=== PATIENT | male | born 1965 | race African-American/Black ===

== ENCOUNTER 2021-07-02 04:36 | Inpatient (IN) ==
[2021-07-02] MEDS ORDERED: ONDANSETRON 4 MG/2 ML VIAL IV STA (05:07)
[2021-07-02] MEDS ORDERED: PANTOPRAZOLE 40 MG VIAL IV STA (05:07)
[2021-07-02] MEDS ORDERED: methylPREDNISolone SOD SUC 125 MG/2 ML VIAL IV STA (05:07)
[2021-07-02] MEDS ORDERED: ALBUTEROL/IPRATROPIUM 3 ML NEB RESP TX STA (05:07)
[2021-07-02] MEDS ORDERED: MORPHINE 4 MG/1 ML VIAL ONE (05:16)
[2021-07-02 05:28] LABS: Basophils # 0.1 10*3/uL (0.0-0.2); Basophils % 0.5 % (0.0-0.8); Eosinophils # 0.2 10*3/uL (0.0-0.87); Hemoglobin 10.1 GM/DL (14.0-18.0); Immature Granulocytes % 2.4 %; Immature Granulocytes Absolute 0.26 #; Lymphocytes # 1.8 10*3/uL (1.4-4.0); Lymphocytes % 16.9 % (21.2-54.2); Mean Corpuscular HGB Conc 27.4 GM/DL (32-36); Mean Corpuscular Volume 71.5 FL (87-102); Monocytes # 0.9 10*3/uL (0.11-0.8); Monocytes % 8.2 % (1.7-12.7); NRBC # 0.07 10*3/uL; Platelet Count 264 T/CUMM (130-400); Red Blood Count 5.15 MC/CUMM (3.8-5.5); White Blood Count 10.8 T/CUMM (4-12)
[2021-07-02] MEDS ORDERED: MORPHINE 4 MG/1 ML VIAL IV STA (05:31)
[2021-07-02 05:35] LABS: Hematocrit 36.8 VOL% (42.0-52.0)
[2021-07-02 05:37] LABS: Alanine Aminotransferase 38 U/L (16-61); Alkaline Phosphatase 140 U/L (45-117); Amylase 50 U/L (25-115); Aspartate Amino Transferase 16 U/L (0-37); Bilirubin,Total < 0.39 MG/DL (0.20-1.00); Blood Urea Nitrogen 25 MG/DL (7-18); Calcium 8.6 MG/DL (8.5-10.1); Glucose 168 MG/DL (74-106); Total Protein 8.7 G/DL (6.4-8.2)
[2021-07-02 05:39] LABS: Chloride 104 MMOL/L (98-107); Osmolality,Calculated 275.2 MOS/KG (273-304); Potassium 4.3 MMOL/L (3.5-5.1); Sodium 134 MMOL/L (136-145)
[2021-07-02 05:42] LABS: Carbon Dioxide 29 MMOL/L (21-32)
[2021-07-02 05:45] LABS: Estimated Glom Filtration Rate 0 ML/MIN
[2021-07-02] MEDS ORDERED: cefTRIAXone 1,000 MG in SODIUM CHLORIDE 0.9% 100 ML IV STA (05:54)
[2021-07-02 06:04] LABS: Platelet Estimate Adequate; Stomatocytes 1+; Target Cells 1+
[2021-07-02 07:54] LABS: Mucus,Urine Occasional /LPF (Occasional); RBC,Urine 5 /HPF (0-4); Squamous Epithelial Cell,Urine Occasional /HPF (0-10)
[2021-07-02 07:59] LABS: Bilirubin,Urine Negative (Negative); Blood, Urine Small mg/dL (Negative); Glucose,Urine (UA) Negative (Negative); Ketones,Urine Negative (Negative); Nitrite,Urine Negative (Negative); Protein,Urine 100 MG/DL; Urine Appearance Clear (Clear); Urine Color Yellow (Yellow); Urine Specific Gravity >= 1.030 (1.001-1.035); Urine Urobilinogen 0.2 EU/DL (<2.0); Urine pH 5.5 (4.5-8.0)
[2021-07-02] MEDS ORDERED: HYDROmorphone 2 MG/1 ML VIAL ONE (09:41)
[2021-07-02] MEDS ORDERED: AMMONIA INHALANT 1 EACH AMP INH ONE (09:42)
[2021-07-02] MEDS ORDERED: GLUCAGON 1 MG VIAL IM PRN (11:06)
[2021-07-02] MEDS ORDERED: DEXTROSE 10% 250 ML BAG IV PRN (11:06)
[2021-07-02 11:17] LABS: Arterial Base Excess iSTAT -4 MMOL/L (-2.5-2.5); Arterial Bicarbonate iSTAT 28.3 MMOL/L (20-26); Arterial O2 Saturation iSTAT 83 % (95-100); Arterial PCO2 iSTAT 94 MM HG (35-48); Arterial PO2 iSTAT 68 MM HG (80-95); Arterial Total CO2 iSTAT 31 MMO/L (23-27); Arterial pH iSTAT 7.085 (7.35-7.45)
[2021-07-02] MEDS: ENOXAPARIN 40 MG/0.4 ML SYRINGE SUBCUT SCH (12:00)
[2021-07-02] MEDS: MEROPENEM 500 MG in SODIUM CHLORIDE 0.9% 100 ML IV SCH ×3 (12:10→23:30)
[2021-07-02] MEDS: SODIUM CHLORIDE 0.9% 1,000 ML IV SCH ×2 (12:10→22:46)
[2021-07-02] MEDS: INSULIN LISPRO 100 UNIT/ML SUBCUT SCH ×3 (12:16→23:54)
[2021-07-02 13:24] LABS: Arterial Base Excess iSTAT -4 MMOL/L (-2.5-2.5); Arterial Bicarbonate iSTAT 28.3 MMOL/L (20-26); Arterial O2 Saturation iSTAT 99 % (95-100); Arterial PCO2 iSTAT 94 MM HG (35-48); Arterial PO2 iSTAT 188 MM HG (80-95); Arterial Total CO2 iSTAT 31 MMO/L (23-27); Arterial pH iSTAT 7.087 (7.35-7.45)
[2021-07-02] MEDS ORDERED: ETOMIDATE 20 MG/10 ML VIAL IV ONE ×2 (14:28→14:37)
[2021-07-02] MEDS ORDERED: SUCCINYLCHOLINE 200 MG/10 ML VIAL ONE (14:30)
[2021-07-02] MEDS ORDERED: SUCCINYLCHOLINE 200 MG/10 ML VIAL IV ONE (14:39)
[2021-07-02] MEDS ORDERED: METOPROLOL TARTRATE 5 MG/5 ML VIAL IV ONE (14:54)
[2021-07-02 17:08] LABS: Arterial Base Excess iSTAT -2 MMOL/L (-2.5-2.5); Arterial Bicarbonate iSTAT 24.3 MMOL/L (20-26); Arterial O2 Saturation iSTAT 100 % (95-100); Arterial PCO2 iSTAT 47 MM HG (35-48); Arterial PO2 iSTAT 209 MM HG (80-95); Arterial Total CO2 iSTAT 26 MMO/L (23-27)
[2021-07-03] MEDS: SODIUM CHLORIDE 0.9% 1,000 ML IV SCH ×4 (00:30→19:26)
[2021-07-03 04:23] LABS: Arterial Base Excess iSTAT -2 MMOL/L (-2.5-2.5); Arterial Bicarbonate iSTAT 22.2 MMOL/L (20-26); Arterial O2 Saturation iSTAT 96 % (95-100); Arterial PCO2 iSTAT 36 MM HG (35-48); Arterial PO2 iSTAT 82 MM HG (80-95); Arterial Total CO2 iSTAT 23 MMO/L (23-27); Arterial pH iSTAT 7.405 (7.35-7.45)
[2021-07-03] MEDS: MEROPENEM 500 MG in SODIUM CHLORIDE 0.9% 100 ML IV SCH ×3 (05:30→21:30)
[2021-07-03] MEDS: INSULIN LISPRO 100 UNIT/ML SUBCUT SCH ×4 (05:47→23:44)
[2021-07-03 06:17] LABS: Basophils % 0.1 % (0.0-0.8); Eosinophils % 0.1 % (0.00-10.9); Hemoglobin 8.5 GM/DL (14.0-18.0); Immature Granulocytes % 0.7 %; Lymphocytes # 0.9 10*3/uL (1.4-4.0); Lymphocytes % 6.1 % (21.2-54.2); Mean Corpuscular HGB Conc 29.3 GM/DL (32-36); Mean Corpuscular Volume 68.9 FL (87-102); Monocytes # 0.9 10*3/uL (0.11-0.8); Monocytes % 6.6 % (1.7-12.7); NRBC # 0.06 10*3/uL; Neutrophils % 86.4 % (38.7-73.9); Platelet Count 190 T/CUMM (130-400); Red Blood Count 4.21 MC/CUMM (3.8-5.5); White Blood Count 14.2 T/CUMM (4-12)
[2021-07-03 06:32] LABS: % Iron Saturation 3.5 % (18-50); Albumin 2.1 G/DL (3.4-5.0); Bilirubin,Total 0.5 MG/DL (0.20-1.00); Calcium 8.2 MG/DL (8.5-10.1); Ferritin 18.5 ng/mL (26-388); Osmolality,Calculated 282.7 MOS/KG (273-304); Potassium 3.9 MMOL/L (3.5-5.1)
[2021-07-03 06:42] LABS: Anisocytosis 2+; Band Neutrophils 13 % (0-10); Eosinophils 1 % (0-10); Lymphocytes 7 % (20-55); Nucleated Red Blood Cells 1 (0-5); Platelet Estimate Normal; Smudge Cells 1+; Total Cells Counted 100
[2021-07-03 06:43] LABS: Hypochromia 1+; Ovalocytes Few; Tear Drop Cells Few
[2021-07-03 06:44] LABS: Macrocytosis Slight
[2021-07-03] MEDS: ENOXAPARIN 40 MG/0.4 ML SYRINGE SUBCUT SCH (12:25)
[2021-07-03] MEDS ORDERED: ALBUTEROL/IPRATROPIUM 3 ML NEB RESP TX SCH (15:00)
[2021-07-03] MEDS: methylPREDNISolone SOD SUC 40 MG/1 ML VIAL IV SCH (15:50)
[2021-07-03] MEDS: BUDESONIDE 0.5 MG/2 ML NEB RESP TX SCH (20:05)
[2021-07-04] MEDS: methylPREDNISolone SOD SUC 40 MG/1 ML VIAL IV SCH ×3 (00:38→16:40)
[2021-07-04] MEDS: ALBUTEROL/IPRATROPIUM 3 ML NEB RESP TX SCH ×4 (00:39→19:15)
[2021-07-04] MEDS: SODIUM CHLORIDE 0.9% 1,000 ML IV SCH ×6 (03:19→21:21)
[2021-07-04] MEDS: MEROPENEM 500 MG in SODIUM CHLORIDE 0.9% 100 ML IV SCH ×3 (05:32→21:35)
[2021-07-04 05:34] LABS: Calcium 8.3 MG/DL (8.5-10.1); Osmolality,Calculated 286.8 MOS/KG (273-304); Potassium 5.3 MMOL/L (3.5-5.1)
[2021-07-04] MEDS: INSULIN LISPRO 100 UNIT/ML SUBCUT SCH ×3 (05:44→18:17)
[2021-07-04 07:14] LABS: Basophils % 0.1 % (0.0-0.8); Eosinophils % 0.1 % (0.00-10.9); Hematocrit 30.8 VOL% (42.0-52.0); Hemoglobin 8.9 GM/DL (14.0-18.0); Immature Granulocytes % 0.9 %; Immature Granulocytes Absolute 0.07 #; Lymphocytes # 0.5 10*3/uL (1.4-4.0); Lymphocytes % 6.4 % (21.2-54.2); Mean Corpuscular HGB Conc 28.9 GM/DL (32-36); Mean Corpuscular Volume 68.1 FL (87-102); Monocytes # 0.4 10*3/uL (0.11-0.8); Monocytes % 5.5 % (1.7-12.7); NRBC # 0.03 10*3/uL; Platelet Count 200 T/CUMM (130-400); Red Blood Count 4.52 MC/CUMM (3.8-5.5); Red Cell Distribution Width 21.2 % (9.3-17.3)
[2021-07-04] MEDS: BUDESONIDE 0.5 MG/2 ML NEB RESP TX SCH ×2 (07:30→19:15)
[2021-07-04 08:20] LABS: Platelet Estimate Normal
[2021-07-04 08:21] LABS: Anisocytosis 1+; Burr Cells Few; Hypochromia Slight; Poikilocytosis Slight; Tear Drop Cells Few
[2021-07-04] MEDS: ENOXAPARIN 40 MG/0.4 ML SYRINGE SUBCUT SCH (11:55)
[2021-07-04] MEDS ORDERED: DEXMEDETOMIDINE 200 MCG in SODIUM CHLORIDE 0.9% 48 ML IV PRN (18:27)
[2021-07-05] MEDS: ALBUTEROL/IPRATROPIUM 3 ML NEB RESP TX SCH ×4 (00:48→18:52)
[2021-07-05] MEDS: SODIUM CHLORIDE 0.9% 1,000 ML IV SCH ×6 (01:11→22:58)
[2021-07-05] MEDS ORDERED: SKIN HEALING OINT (AQUAPHOR) 50 GM TUBE TOP PRN (01:36)
[2021-07-05 03:01] LABS: Basophils % 0.1 % (0.0-0.8); Hematocrit 28.8 VOL% (42.0-52.0); Hemoglobin 8.3 GM/DL (14.0-18.0); Immature Granulocytes % 0.7 %; Immature Granulocytes Absolute 0.05 #; Lymphocytes # 0.6 10*3/uL (1.4-4.0); Mean Corpuscular HGB Conc 28.8 GM/DL (32-36); Mean Corpuscular Volume 67.8 FL (87-102); Monocytes # 0.7 10*3/uL (0.11-0.8); Monocytes % 10.5 % (1.7-12.7); NRBC # 0.05 10*3/uL; Neutrophils % 79.7 % (38.7-73.9); Platelet Count 205 T/CUMM (130-400); Red Blood Count 4.25 MC/CUMM (3.8-5.5); White Blood Count 6.8 T/CUMM (4-12)
[2021-07-05 03:18] LABS: Phosphorous 2.8 MG/DL (2.5-4.9)
[2021-07-05 03:22] LABS: Alanine Aminotransferase 18 U/L (16-61); Albumin 2.2 G/DL (3.4-5.0); Alkaline Phosphatase 98 U/L (45-117); Aspartate Amino Transferase 6 U/L (0-37); Bilirubin,Indirect 0.3 MG/DL (0.0-1.0); Bilirubin,Total < 0.39 MG/DL (0.20-1.00); Blood Urea Nitrogen 33 MG/DL (7-18); Calcium 8.6 MG/DL (8.5-10.1); Carbon Dioxide 21 MMOL/L (21-32); Chloride 119 MMOL/L (98-107); Estimated Glom Filtration Rate 55 ML/MIN; Glucose 227 MG/DL (74-106); Osmolality,Calculated 294.3 MOS/KG (273-304); Potassium 4.8 MMOL/L (3.5-5.1); Sodium 141 MMOL/L (136-145); Total Protein 7.6 G/DL (6.4-8.2)
[2021-07-05] MEDS: MEROPENEM 500 MG in SODIUM CHLORIDE 0.9% 100 ML IV SCH ×3 (05:30→21:40)
[2021-07-05] MEDS: INSULIN LISPRO 100 UNIT/ML SUBCUT SCH ×4 (06:07→19:14)
[2021-07-05] MEDS: BUDESONIDE 0.5 MG/2 ML NEB RESP TX SCH ×2 (06:55→18:52)
[2021-07-05] MEDS: methylPREDNISolone SOD SUC 40 MG/1 ML VIAL IV SCH ×3 (08:32→19:14)
[2021-07-05] MEDS ORDERED: METOPROLOL TARTRATE 25 MG TABLET PO SCH (09:00)
[2021-07-05 10:32] LABS: Arterial Base Excess iSTAT -6 MMOL/L (-2.5-2.5); Arterial Bicarbonate iSTAT 21.2 MMOL/L (20-26); Arterial O2 Saturation iSTAT 95 % (95-100); Arterial PCO2 iSTAT 48 MM HG (35-48); Arterial PO2 iSTAT 89 MM HG (80-95); Arterial Total CO2 iSTAT 23 MMO/L (23-27); Arterial pH iSTAT 7.256 (7.35-7.45)
[2021-07-05] MEDS: ENOXAPARIN 40 MG/0.4 ML SYRINGE SUBCUT SCH (11:39)
[2021-07-05 12:21] LABS: Arterial Base Excess iSTAT -5 MMOL/L (-2.5-2.5); Arterial Bicarbonate iSTAT 20.6 MMOL/L (20-26); Arterial PCO2 iSTAT 38 MM HG (35-48); Arterial Total CO2 iSTAT 22 MMO/L (23-27); Arterial pH iSTAT 7.342 (7.35-7.45)
[2021-07-05] MEDS ORDERED: METOPROLOL TARTRATE 5 MG/5 ML VIAL IV ONE (13:17)
[2021-07-05] MEDS ORDERED: MORPHINE 4 MG/1 ML VIAL IV PRN (15:22)
[2021-07-05] MEDS: LORazepam 2 MG/1 ML VIAL IV PRN (15:39)
[2021-07-05 16:33] LABS: Arterial Base Excess iSTAT -6 MMOL/L (-2.5-2.5); Arterial Bicarbonate iSTAT 22.4 MMOL/L (20-26); Arterial O2 Saturation iSTAT 78 % (95-100); Arterial PCO2 iSTAT 60 MM HG (35-48); Arterial PO2 iSTAT 54 MM HG (80-95); Arterial Total CO2 iSTAT 24 MMO/L (23-27); Arterial pH iSTAT 7.183 (7.35-7.45)
[2021-07-05] MEDS ORDERED: ETOMIDATE 20 MG/10 ML VIAL IV ONE ×3 (17:10→17:18)
[2021-07-05] MEDS ORDERED: SUCCINYLCHOLINE 200 MG/10 ML VIAL ONE (17:11)
[2021-07-05 17:15] LABS: Arterial Base Excess iSTAT -6 MMOL/L (-2.5-2.5); Arterial Bicarbonate iSTAT 21.9 MMOL/L (20-26); Arterial O2 Saturation iSTAT 98 % (95-100); Arterial PCO2 iSTAT 56 MM HG (35-48); Arterial PO2 iSTAT 134 MM HG (80-95); Arterial Total CO2 iSTAT 24 MMO/L (23-27)
[2021-07-05] MEDS ORDERED: SUCCINYLCHOLINE 200 MG/10 ML VIAL IV ONE (17:19)
[2021-07-05] MEDS: FAMOTIDINE 20 MG TABLET PO SCH (20:50)
[2021-07-05] MEDS: METOPROLOL TARTRATE 25 MG TABLET PO SCH (20:50)
[2021-07-05] MEDS: risperiDONE 1 MG TABLET PO SCH (20:50)
[2021-07-06] MEDS: ALBUTEROL/IPRATROPIUM 3 ML NEB RESP TX SCH ×4 (00:24→18:58)
[2021-07-06] MEDS: INSULIN LISPRO 100 UNIT/ML SUBCUT SCH ×5 (00:34→23:45)
[2021-07-06] MEDS: hydrALAZINE 20 MG/1 ML VIAL IV PRN (00:42)
[2021-07-06] MEDS: methylPREDNISolone SOD SUC 40 MG/1 ML VIAL IV SCH ×4 (01:01→23:45)
[2021-07-06] MEDS: SODIUM CHLORIDE 0.9% 1,000 ML IV SCH ×5 (01:02→20:25)
[2021-07-06 03:52] LABS: ABG Base Excess -6.4 MMOL/L (-2.5-2.5); ABG HCO3 19.2 MMOL/L (20-26); ABG Oxygen Saturation 99.8 % (95-100); ABG PCO2 41.7 MM HG (35-48); ABG PH 7.286 (7.35-7.45); ABG TCO2 18.6 MMOL/L (23-27)
[2021-07-06 04:14] LABS: Calcium 8.1 MG/DL (8.5-10.1); Osmolality,Calculated 298.7 MOS/KG (273-304); Potassium 4.9 MMOL/L (3.5-5.1)
[2021-07-06 04:19] LABS: Basophils % 0.2 % (0.0-0.8); Eosinophils % 0.2 % (0.00-10.9); Hematocrit 29.5 VOL% (42.0-52.0); Hemoglobin 8.6 GM/DL (14.0-18.0); Immature Granulocytes % 1.7 %; Immature Granulocytes Absolute 0.16 #; Lymphocytes # 1.1 10*3/uL (1.4-4.0); Lymphocytes % 11.9 % (21.2-54.2); Mean Corpuscular HGB Conc 29.2 GM/DL (32-36); Mean Corpuscular Volume 68.8 FL (87-102); Monocytes # 0.6 10*3/uL (0.11-0.8); NRBC # 0.07 10*3/uL; Platelet Count 232 T/CUMM (130-400); Red Blood Count 4.29 MC/CUMM (3.8-5.5); Red Cell Distribution Width 21.2 % (9.3-17.3); White Blood Count 9.3 T/CUMM (4-12)
[2021-07-06 04:20] LABS: Hypochromia 2+; Microcytosis 1+
[2021-07-06 04:21] LABS: Ovalocytes Few; Platelet Estimate Normal; Target Cells Slight
[2021-07-06] MEDS: MEROPENEM 500 MG in SODIUM CHLORIDE 0.9% 100 ML IV SCH ×3 (05:30→21:30)
[2021-07-06] MEDS: BUDESONIDE 0.5 MG/2 ML NEB RESP TX SCH ×2 (07:03→18:58)
[2021-07-06] MEDS: risperiDONE 1 MG TABLET PO SCH ×2 (08:31→21:45)
[2021-07-06] MEDS: METOPROLOL TARTRATE 25 MG TABLET PO SCH ×2 (08:31→21:45)
[2021-07-06] MEDS: ENOXAPARIN 40 MG/0.4 ML SYRINGE SUBCUT SCH (11:50)
[2021-07-06] MEDS: LORazepam 2 MG/1 ML VIAL IV PRN (13:38)
[2021-07-06] MEDS: FAMOTIDINE 20 MG TABLET PO SCH (21:45)
[2021-07-06] MEDS: MORPHINE 2 MG/1 ML SYRINGE IV PRN (23:52)
[2021-07-07] MEDS: ALBUTEROL/IPRATROPIUM 3 ML NEB RESP TX SCH ×4 (00:27→19:16)
[2021-07-07] MEDS: SODIUM CHLORIDE 0.9% 1,000 ML IV SCH ×4 (03:37→13:29)
[2021-07-07 03:48] LABS: ABG Base Excess -8.7 MMOL/L (-2.5-2.5); ABG HCO3 17.7 MMOL/L (20-26); ABG Oxygen Saturation 96.1 % (95-100); ABG PH 7.263 (7.35-7.45); ABG PO2 96.3 MM HG (80-95); ABG TCO2 18.9 MMOL/L (23-27)
[2021-07-07 04:00] LABS: Calcium 8.5 MG/DL (8.5-10.1); Potassium 5.2 MMOL/L (3.5-5.1)
[2021-07-07 04:22] LABS: Basophils % 0.1 % (0.0-0.8); Eosinophils % 0.1 % (0.00-10.9); Hematocrit 32.1 VOL% (42.0-52.0); Immature Granulocytes % 1.8 %; Immature Granulocytes Absolute 0.16 #; Lymphocytes # 0.8 10*3/uL (1.4-4.0); Lymphocytes % 8.5 % (21.2-54.2); Mean Corpuscular HGB Conc 28.7 GM/DL (32-36); Monocytes # 0.5 10*3/uL (0.11-0.8); Monocytes % 5.6 % (1.7-12.7); NRBC # 0.06 10*3/uL; Neutrophils % 83.9 % (38.7-73.9); Platelet Count 226 T/CUMM (130-400); Red Blood Count 4.72 MC/CUMM (3.8-5.5); Red Cell Distribution Width 21.5 % (9.3-17.3); White Blood Count 9.1 T/CUMM (4-12)
[2021-07-07 04:24] LABS: Hemoglobin 9.2 GM/DL (14.0-18.0)
[2021-07-07 04:26] LABS: Hypochromia 1+
[2021-07-07 04:27] LABS: Microcytosis 1+; Ovalocytes Few; Platelet Estimate Normal; Target Cells Slight
[2021-07-07] MEDS: MEROPENEM 500 MG in SODIUM CHLORIDE 0.9% 100 ML IV SCH ×3 (05:03→20:35)
[2021-07-07] MEDS: INSULIN LISPRO 100 UNIT/ML SUBCUT SCH ×4 (06:30→23:57)
[2021-07-07] MEDS: BUDESONIDE 0.5 MG/2 ML NEB RESP TX SCH ×2 (07:00→19:16)
[2021-07-07] MEDS: methylPREDNISolone SOD SUC 40 MG/1 ML VIAL IV SCH ×2 (08:50→15:45)
[2021-07-07] MEDS: METOPROLOL TARTRATE 25 MG TABLET PO SCH ×2 (08:55→20:24)
[2021-07-07] MEDS: risperiDONE 1 MG TABLET PO SCH ×2 (08:55→20:23)
[2021-07-07] MEDS: MIDAZOLAM 100 MG in SODIUM CHLORIDE 0.9% 80 ML IV PRN (09:16)
[2021-07-07] MEDS: ENOXAPARIN 40 MG/0.4 ML SYRINGE SUBCUT SCH (12:13)
[2021-07-07] MEDS: MORPHINE 2 MG/1 ML SYRINGE IV PRN (13:37)
[2021-07-07] MEDS: SODIUM BICARB INJ 100 MEQ in SODIUM CHLORIDE 0.45% 1,000 ML IV SCH (15:45)
[2021-07-07] MEDS: FAMOTIDINE 20 MG TABLET PO SCH (20:24)
[2021-07-08] MEDS: methylPREDNISolone SOD SUC 40 MG/1 ML VIAL IV SCH ×3 (00:09→15:06)
[2021-07-08] MEDS: ALBUTEROL/IPRATROPIUM 3 ML NEB RESP TX SCH ×4 (00:12→18:57)
[2021-07-08 03:35] LABS: ABG Base Excess -5.9 MMOL/L (-2.5-2.5); ABG HCO3 18.8 MMOL/L (20-26); ABG PCO2 33.5 MM HG (35-48); ABG PH 7.367 (7.35-7.45); ABG PO2 120.7 MM HG (80-95); ABG TCO2 19.8 MMOL/L (23-27)
[2021-07-08 03:54] LABS: Osmolality,Calculated 298.7 MOS/KG (273-304); Potassium 5.1 MMOL/L (3.5-5.1)
[2021-07-08 03:59] LABS: Phosphorous 3.4 MG/DL (2.5-4.9)
[2021-07-08 04:25] LABS: Basophils % 0.3 % (0.0-0.8); Eosinophils # 0.1 10*3/uL (0.0-0.87); Eosinophils % 1.3 % (0.00-10.9); Hemoglobin 8.1 GM/DL (14.0-18.0); Immature Granulocytes % 3.9 %; Immature Granulocytes Absolute 0.29 #; Lymphocytes # 0.9 10*3/uL (1.4-4.0); Lymphocytes % 12.2 % (21.2-54.2); Mean Corpuscular HGB Conc 28.9 GM/DL (32-36); Mean Corpuscular Volume 68.6 FL (87-102); Monocytes # 0.7 10*3/uL (0.11-0.8); Monocytes % 9.8 % (1.7-12.7); NRBC # 0.04 10*3/uL; Neutrophils % 72.5 % (38.7-73.9); Platelet Count 237 T/CUMM (130-400); Red Blood Count 4.08 MC/CUMM (3.8-5.5); White Blood Count 7.4 T/CUMM (4-12)
[2021-07-08 04:47] LABS: Hypochromia 2+; Microcytosis 2+
[2021-07-08 04:48] LABS: Ovalocytes Slight; Polychromasia Slight; Target Cells Slight
[2021-07-08 04:49] LABS: Platelet Estimate Normal
[2021-07-08] MEDS: MEROPENEM 500 MG in SODIUM CHLORIDE 0.9% 100 ML IV SCH ×3 (05:47→21:15)
[2021-07-08] MEDS: INSULIN LISPRO 100 UNIT/ML SUBCUT SCH ×3 (05:48→17:42)
[2021-07-08] MEDS: BUDESONIDE 0.5 MG/2 ML NEB RESP TX SCH ×2 (07:00→18:57)
[2021-07-08] MEDS: SODIUM BICARB INJ 100 MEQ in SODIUM CHLORIDE 0.45% 1,000 ML IV SCH ×3 (07:15→23:00)
[2021-07-08] MEDS: METOPROLOL TARTRATE 25 MG TABLET PO SCH ×2 (08:32→20:37)
[2021-07-08] MEDS: risperiDONE 1 MG TABLET PO SCH ×2 (08:32→21:15)
[2021-07-08] MEDS ORDERED: FUROSEMIDE 40 MG/4 ML VIAL IV ONE (09:58)
[2021-07-08] MEDS: ENOXAPARIN 40 MG/0.4 ML SYRINGE SUBCUT SCH (11:20)
[2021-07-08] MEDS: hydrALAZINE 20 MG/1 ML VIAL IV PRN (16:10)
[2021-07-08] MEDS: MIDAZOLAM 100 MG in SODIUM CHLORIDE 0.9% 80 ML IV PRN (18:00)
[2021-07-08] MEDS: FAMOTIDINE 20 MG TABLET PO SCH (21:15)
[2021-07-09] MEDS: ALBUTEROL/IPRATROPIUM 3 ML NEB RESP TX SCH ×4 (00:16→18:02)
[2021-07-09] MEDS: INSULIN LISPRO 100 UNIT/ML SUBCUT SCH ×4 (00:51→17:17)
[2021-07-09] MEDS: methylPREDNISolone SOD SUC 40 MG/1 ML VIAL IV SCH ×3 (00:52→15:14)
[2021-07-09 03:38] LABS: ABG Base Excess -1.1 MMOL/L (-2.5-2.5); ABG HCO3 22.4 MMOL/L (20-26); ABG Oxygen Saturation 97.7 % (95-100); ABG PCO2 32.1 MM HG (35-48); ABG PH 7.461 (7.35-7.45); ABG PO2 107.9 MM HG (80-95); ABG TCO2 23.4 MMOL/L (23-27)
[2021-07-09 03:40] LABS: Basophils % 0.3 % (0.0-0.8); Eosinophils # 0.1 10*3/uL (0.0-0.87); Eosinophils % 1.2 % (0.00-10.9); Hematocrit 27.7 VOL% (42.0-52.0); Hemoglobin 8.2 GM/DL (14.0-18.0); Immature Granulocytes % 3.6 %; Immature Granulocytes Absolute 0.28 #; Lymphocytes % 13.2 % (21.2-54.2); Mean Corpuscular HGB Conc 29.6 GM/DL (32-36); Mean Corpuscular Volume 67.7 FL (87-102); Monocytes # 0.8 10*3/uL (0.11-0.8); Neutrophils % 71.7 % (38.7-73.9); Platelet Count 265 T/CUMM (130-400); Red Blood Count 4.09 MC/CUMM (3.8-5.5); Red Cell Distribution Width 20.8 % (9.3-17.3); White Blood Count 7.8 T/CUMM (4-12)
[2021-07-09 03:56] LABS: Calcium 8.2 MG/DL (8.5-10.1); Osmolality,Calculated 297.1 MOS/KG (273-304); Potassium 4.5 MMOL/L (3.5-5.1)
[2021-07-09] MEDS: MEROPENEM 500 MG in SODIUM CHLORIDE 0.9% 100 ML IV SCH ×3 (05:48→20:30)
[2021-07-09] MEDS: BUDESONIDE 0.5 MG/2 ML NEB RESP TX SCH ×2 (07:01→18:02)
[2021-07-09] MEDS: METOPROLOL TARTRATE 25 MG TABLET PO SCH ×2 (09:11→20:27)
[2021-07-09] MEDS: risperiDONE 1 MG TABLET PO SCH ×2 (09:11→20:27)
[2021-07-09] MEDS: ENOXAPARIN 40 MG/0.4 ML SYRINGE SUBCUT SCH (11:26)
[2021-07-09] MEDS: SODIUM BICARB INJ 100 MEQ in SODIUM CHLORIDE 0.45% 1,000 ML IV SCH (14:34)
[2021-07-09] MEDS: MIDAZOLAM 100 MG in SODIUM CHLORIDE 0.9% 80 ML IV PRN (14:38)
[2021-07-09] MEDS: FAMOTIDINE 20 MG TABLET PO SCH (20:27)
[2021-07-10] MEDS: INSULIN LISPRO 100 UNIT/ML SUBCUT SCH ×4 (00:42→17:47)
[2021-07-10] MEDS: methylPREDNISolone SOD SUC 40 MG/1 ML VIAL IV SCH ×3 (00:47→16:00)
[2021-07-10] MEDS: ALBUTEROL/IPRATROPIUM 3 ML NEB RESP TX SCH ×4 (01:35→20:04)
[2021-07-10 03:43] LABS: ABG Base Excess 1.1 MMOL/L (-2.5-2.5); ABG HCO3 25.3 MMOL/L (20-26); ABG Oxygen Saturation 94.7 % (95-100); ABG PCO2 32.7 MM HG (35-48); ABG PH 7.478 (7.35-7.45); ABG PO2 72.3 MM HG (80-95); ABG TCO2 22.2 MMOL/L (23-27)
[2021-07-10 03:49] LABS: Basophils % 0.2 % (0.0-0.8); Eosinophils # 0.1 10*3/uL (0.0-0.87); Eosinophils % 1.1 % (0.00-10.9); Hematocrit 28.9 VOL% (42.0-52.0); Hemoglobin 8.6 GM/DL (14.0-18.0); Immature Granulocytes Absolute 0.32 #; Lymphocytes # 1.1 10*3/uL (1.4-4.0); Lymphocytes % 10.2 % (21.2-54.2); Mean Corpuscular HGB Conc 29.8 GM/DL (32-36); Mean Corpuscular Volume 67.5 FL (87-102); Monocytes # 0.9 10*3/uL (0.11-0.8); Monocytes % 8.2 % (1.7-12.7); Neutrophils % 77.3 % (38.7-73.9); Platelet Count 299 T/CUMM (130-400); Red Blood Count 4.28 MC/CUMM (3.8-5.5); White Blood Count 10.6 T/CUMM (4-12)
[2021-07-10 04:05] LABS: Calcium 7.9 MG/DL (8.5-10.1); Osmolality,Calculated 299.8 MOS/KG (273-304); Potassium 4.6 MMOL/L (3.5-5.1)
[2021-07-10] MEDS: SODIUM BICARB INJ 100 MEQ in SODIUM CHLORIDE 0.45% 1,000 ML IV SCH (05:35)
[2021-07-10] MEDS: MEROPENEM 500 MG in SODIUM CHLORIDE 0.9% 100 ML IV SCH ×3 (05:35→21:40)
[2021-07-10] MEDS: BUDESONIDE 0.5 MG/2 ML NEB RESP TX SCH ×2 (08:12→20:04)
[2021-07-10] MEDS: risperiDONE 1 MG TABLET PO SCH ×2 (08:51→21:39)
[2021-07-10] MEDS: METOPROLOL TARTRATE 25 MG TABLET PO SCH ×2 (08:51→21:39)
[2021-07-10] MEDS: SODIUM CHLORIDE 0.45% 1,000 ML IV SCH (08:59)
[2021-07-10] MEDS: ENOXAPARIN 40 MG/0.4 ML SYRINGE SUBCUT SCH (11:34)
[2021-07-10] MEDS: FAMOTIDINE 20 MG TABLET PO SCH (21:39)
[2021-07-10] MEDS: MIDAZOLAM 100 MG in SODIUM CHLORIDE 0.9% 80 ML IV PRN (23:21)
[2021-07-11] MEDS: INSULIN LISPRO 100 UNIT/ML SUBCUT SCH ×5 (00:56→23:50)
[2021-07-11] MEDS: methylPREDNISolone SOD SUC 40 MG/1 ML VIAL IV SCH ×3 (00:56→15:42)
[2021-07-11] MEDS: SODIUM CHLORIDE 0.45% 1,000 ML IV SCH ×3 (01:00→15:22)
[2021-07-11] MEDS: ALBUTEROL/IPRATROPIUM 3 ML NEB RESP TX SCH ×4 (01:40→19:31)
[2021-07-11 04:39] LABS: ABG HCO3 22.7 MMOL/L (20-26); ABG Oxygen Saturation 98.6 % (95-100); ABG PCO2 37.7 MM HG (35-48); ABG PH 7.387 (7.35-7.45); ABG TCO2 20.7 MMOL/L (23-27)
[2021-07-11 04:43] LABS: Basophils % 0.4 % (0.0-0.8); Eosinophils # 0.1 10*3/uL (0.0-0.87); Eosinophils % 0.7 % (0.00-10.9); Hematocrit 28.2 VOL% (42.0-52.0); Hemoglobin 8.2 GM/DL (14.0-18.0); Immature Granulocytes % 3.1 %; Immature Granulocytes Absolute 0.32 #; Lymphocytes # 0.8 10*3/uL (1.4-4.0); Lymphocytes % 8.1 % (21.2-54.2); Mean Corpuscular HGB Conc 29.1 GM/DL (32-36); Mean Corpuscular Volume 68.4 FL (87-102); Monocytes # 0.6 10*3/uL (0.11-0.8); Monocytes % 6.2 % (1.7-12.7); Neutrophils % 81.5 % (38.7-73.9); Platelet Count 287 T/CUMM (130-400); Red Blood Count 4.12 MC/CUMM (3.8-5.5); Red Cell Distribution Width 20.9 % (9.3-17.3); White Blood Count 10.4 T/CUMM (4-12)
[2021-07-11 04:59] LABS: Calcium 8.1 MG/DL (8.5-10.1); Osmolality,Calculated 300.1 MOS/KG (273-304); Potassium 4.9 MMOL/L (3.5-5.1)
[2021-07-11 05:01] LABS: Hypochromia 2+; Microcytosis 2+; Ovalocytes Few; Platelet Estimate Normal; Polychromasia Slight
[2021-07-11] MEDS: BUDESONIDE 0.5 MG/2 ML NEB RESP TX SCH ×2 (08:05→19:31)
[2021-07-11] MEDS: METOPROLOL TARTRATE 25 MG TABLET PO SCH ×2 (08:33→20:51)
[2021-07-11] MEDS: risperiDONE 1 MG TABLET PO SCH ×2 (08:33→20:52)
[2021-07-11] MEDS: hydrALAZINE 20 MG/1 ML VIAL IV PRN (09:50)
[2021-07-11] MEDS: ENOXAPARIN 40 MG/0.4 ML SYRINGE SUBCUT SCH (11:23)
[2021-07-11] MEDS: FAMOTIDINE 20 MG TABLET PO SCH (20:51)
[2021-07-11] MEDS: MORPHINE 2 MG/1 ML SYRINGE IV PRN (21:14)
[2021-07-12] MEDS: hydrALAZINE 20 MG/1 ML VIAL IV PRN ×3 (00:06→22:48)
[2021-07-12] MEDS: methylPREDNISolone SOD SUC 40 MG/1 ML VIAL IV SCH ×4 (00:07→20:17)
[2021-07-12] MEDS: ALBUTEROL/IPRATROPIUM 3 ML NEB RESP TX SCH ×4 (00:47→19:02)
[2021-07-12 04:16] LABS: ABG Base Excess -4.5 MMOL/L (-2.5-2.5); ABG HCO3 20.7 MMOL/L (20-26); ABG Oxygen Saturation 98.8 % (95-100); ABG PCO2 43.4 MM HG (35-48); ABG PH 7.307 (7.35-7.45)
[2021-07-12] MEDS: SODIUM CHLORIDE 0.45% 1,000 ML IV SCH (04:19)
[2021-07-12 04:32] LABS: Calcium 8.5 MG/DL (8.5-10.1); Osmolality,Calculated 299.5 MOS/KG (273-304); Potassium 5.1 MMOL/L (3.5-5.1)
[2021-07-12] MEDS: INSULIN LISPRO 100 UNIT/ML SUBCUT SCH ×4 (06:00→23:57)
[2021-07-12] MEDS: BUDESONIDE 0.5 MG/2 ML NEB RESP TX SCH ×2 (07:10→19:02)
[2021-07-12] MEDS: METOPROLOL TARTRATE 25 MG TABLET PO SCH ×2 (08:00→21:10)
[2021-07-12] MEDS: risperiDONE 1 MG TABLET PO SCH ×2 (08:00→21:11)
[2021-07-12] MEDS: DEXMEDETOMIDINE 200 MCG in SODIUM CHLORIDE 0.9% 48 ML IV PRN ×4 (10:47→22:30)
[2021-07-12] MEDS: ENOXAPARIN 40 MG/0.4 ML SYRINGE SUBCUT SCH (11:27)
[2021-07-12] MEDS: FAMOTIDINE 20 MG TABLET PO SCH (21:11)
[2021-07-13] MEDS: ALBUTEROL/IPRATROPIUM 3 ML NEB RESP TX SCH ×4 (00:02→19:05)
[2021-07-13] MEDS: DEXMEDETOMIDINE 200 MCG in SODIUM CHLORIDE 0.9% 48 ML IV PRN ×6 (01:50→20:03)
[2021-07-13 03:12] LABS: ABG Base Excess -1.5 MMOL/L (-2.5-2.5); ABG HCO3 23.2 MMOL/L (20-26); ABG Oxygen Saturation 99.1 % (95-100); ABG PCO2 36.2 MM HG (35-48); ABG PH 7.407 (7.35-7.45); ABG TCO2 21.1 MMOL/L (23-27)
[2021-07-13 03:19] LABS: Basophils % 0.2 % (0.0-0.8); Eosinophils # 0.1 10*3/uL (0.0-0.87); Eosinophils % 0.5 % (0.00-10.9); Hematocrit 30.1 VOL% (42.0-52.0); Hemoglobin 8.7 GM/DL (14.0-18.0); Immature Granulocytes % 1.3 %; Immature Granulocytes Absolute 0.12 #; Lymphocytes # 0.8 10*3/uL (1.4-4.0); Lymphocytes % 8.4 % (21.2-54.2); Mean Corpuscular HGB Conc 28.9 GM/DL (32-36); Monocytes # 0.5 10*3/uL (0.11-0.8); Monocytes % 5.2 % (1.7-12.7); Neutrophils % 84.4 % (38.7-73.9); Platelet Count 311 T/CUMM (130-400); Red Blood Count 4.36 MC/CUMM (3.8-5.5); Red Cell Distribution Width 21.5 % (9.3-17.3); White Blood Count 9.5 T/CUMM (4-12)
[2021-07-13 03:37] LABS: Alanine Aminotransferase 47 U/L (16-61); Albumin 2.3 G/DL (3.4-5.0); Alkaline Phosphatase 105 U/L (45-117); Aspartate Amino Transferase 21 U/L (0-37); Bilirubin,Total < 0.39 MG/DL (0.20-1.00); Blood Urea Nitrogen 52 MG/DL (7-18); Calcium 8.4 MG/DL (8.5-10.1); Carbon Dioxide 22 MMOL/L (21-32); Chloride 114 MMOL/L (98-107); Estimated Glom Filtration Rate 81 ML/MIN; Glucose 174 MG/DL (74-106); Osmolality,Calculated 300.1 MOS/KG (273-304); Potassium 5.1 MMOL/L (3.5-5.1); Sodium 142 MMOL/L (136-145); Total Protein 7.7 G/DL (6.4-8.2)
[2021-07-13 03:51] LABS: % Iron Saturation 8.2 % (18-50); Ferritin 22.8 ng/mL (26-388)
[2021-07-13 04:03] LABS: Folate 10.37 NG/ML (5.38-24.0)
[2021-07-13 04:18] LABS: Anisocytosis 1+; Hypochromia 2+; Microcytosis 1+
[2021-07-13 04:19] LABS: Ovalocytes Few; Platelet Estimate Normal; Polychromasia Slight
[2021-07-13] MEDS: INSULIN LISPRO 100 UNIT/ML SUBCUT SCH ×3 (06:21→17:29)
[2021-07-13] MEDS: hydrALAZINE 20 MG/1 ML VIAL IV PRN (06:29)
[2021-07-13] MEDS: BUDESONIDE 0.5 MG/2 ML NEB RESP TX SCH ×2 (07:05→19:05)
[2021-07-13] MEDS: methylPREDNISolone SOD SUC 40 MG/1 ML VIAL IV SCH ×2 (07:31→20:57)
[2021-07-13] MEDS: risperiDONE 1 MG TABLET PO SCH ×2 (08:36→21:26)
[2021-07-13] MEDS: METOPROLOL TARTRATE 25 MG TABLET PO SCH ×2 (08:36→20:58)
[2021-07-13] MEDS: ENOXAPARIN 40 MG/0.4 ML SYRINGE SUBCUT SCH (11:05)
[2021-07-13] MEDS: NIFEdipine 10 MG CAPSULE PO SCH ×3 (14:10→21:54)
[2021-07-13] MEDS: LORazepam 2 MG/1 ML VIAL IV PRN (19:30)
[2021-07-13] MEDS: FAMOTIDINE 20 MG TABLET PO SCH (20:58)
[2021-07-13] MEDS: POLYVINYL ALCOHOL 1.4% OPH SOLN 15 ML BOTTLE BOTH EYES PRN (21:26)
[2021-07-14] MEDS: INSULIN LISPRO 100 UNIT/ML SUBCUT SCH ×4 (00:05→17:37)
[2021-07-14] MEDS: ALBUTEROL/IPRATROPIUM 3 ML NEB RESP TX SCH ×4 (00:40→19:13)
[2021-07-14 03:24] LABS: ABG Base Excess -1.4 MMOL/L (-2.5-2.5); ABG HCO3 23.3 MMOL/L (20-26); ABG Oxygen Saturation 98.7 % (95-100); ABG PCO2 41.8 MM HG (35-48); ABG PH 7.365 (7.35-7.45); ABG TCO2 22.2 MMOL/L (23-27)
[2021-07-14 03:45] LABS: Albumin 2.3 G/DL (3.4-5.0); Bilirubin,Total 0.5 MG/DL (0.20-1.00); Calcium 8.5 MG/DL (8.5-10.1); Osmolality,Calculated 301.7 MOS/KG (273-304); Potassium 4.4 MMOL/L (3.5-5.1); Total Protein 7.8 G/DL (6.4-8.2)
[2021-07-14 04:12] LABS: Basophils % 0.2 % (0.0-0.8); Eosinophils % 0.1 % (0.00-10.9); Hematocrit 29.8 VOL% (42.0-52.0); Hemoglobin 8.8 GM/DL (14.0-18.0); Immature Granulocytes % 0.9 %; Immature Granulocytes Absolute 0.14 #; Lymphocytes # 0.8 10*3/uL (1.4-4.0); Lymphocytes % 5.4 % (21.2-54.2); Mean Corpuscular HGB Conc 29.5 GM/DL (32-36); Mean Corpuscular Volume 68.8 FL (87-102); Monocytes # 0.8 10*3/uL (0.11-0.8); Neutrophils % 88.4 % (38.7-73.9); Platelet Count 328 T/CUMM (130-400); Red Blood Count 4.33 MC/CUMM (3.8-5.5); Red Cell Distribution Width 21.8 % (9.3-17.3); White Blood Count 15.1 T/CUMM (4-12)
[2021-07-14 04:18] LABS: Hypochromia 2+; Polychromasia Slight; Target Cells Slight
[2021-07-14 04:19] LABS: Microcytosis 2+; Platelet Estimate Normal
[2021-07-14] MEDS: NIFEdipine 10 MG CAPSULE PO SCH ×3 (06:15→21:00)
[2021-07-14] MEDS: BUDESONIDE 0.5 MG/2 ML NEB RESP TX SCH ×2 (07:33→19:13)
[2021-07-14] MEDS ORDERED: FUROSEMIDE 40 MG/4 ML VIAL IV ONE (08:49)
[2021-07-14] MEDS: METOPROLOL TARTRATE 25 MG TABLET PO SCH ×2 (09:07→20:42)
[2021-07-14] MEDS: methylPREDNISolone SOD SUC 40 MG/1 ML VIAL IV SCH ×2 (09:07→20:42)
[2021-07-14] MEDS: risperiDONE 1 MG TABLET PO SCH ×2 (09:07→20:42)
[2021-07-14] MEDS: ENOXAPARIN 40 MG/0.4 ML SYRINGE SUBCUT SCH (11:13)
[2021-07-14] MEDS: cefTRIAXone 1,000 MG in SODIUM CHLORIDE 0.9% 100 ML IV SCH (11:13)
[2021-07-14] MEDS: FAMOTIDINE 20 MG TABLET PO SCH (20:42)
[2021-07-15] MEDS: INSULIN LISPRO 100 UNIT/ML SUBCUT SCH ×4 (00:10→18:23)
[2021-07-15] MEDS: ALBUTEROL/IPRATROPIUM 3 ML NEB RESP TX SCH ×4 (01:25→20:19)
[2021-07-15 04:17] LABS: ABG Base Excess -0.4 MMOL/L (-2.5-2.5); ABG HCO3 24.1 MMOL/L (20-26); ABG Oxygen Saturation 99.2 % (95-100); ABG PCO2 37.5 MM HG (35-48); ABG PH 7.413 (7.35-7.45); ABG TCO2 22.4 MMOL/L (23-27)
[2021-07-15 04:23] LABS: Basophils % 0.2 % (0.0-0.8); Eosinophils % 0.1 % (0.00-10.9); Hematocrit 28.5 VOL% (42.0-52.0); Hemoglobin 8.2 GM/DL (14.0-18.0); Immature Granulocytes % 0.7 %; Immature Granulocytes Absolute 0.08 #; Lymphocytes # 1.3 10*3/uL (1.4-4.0); Lymphocytes % 10.6 % (21.2-54.2); Mean Corpuscular HGB Conc 28.8 GM/DL (32-36); Mean Corpuscular Volume 68.8 FL (87-102); Monocytes % 8.2 % (1.7-12.7); Neutrophils % 80.2 % (38.7-73.9); Platelet Count 382 T/CUMM (130-400); Red Blood Count 4.14 MC/CUMM (3.8-5.5); Red Cell Distribution Width 21.8 % (9.3-17.3); White Blood Count 11.8 T/CUMM (4-12)
[2021-07-15 04:39] LABS: Calcium 8.3 MG/DL (8.5-10.1); Osmolality,Calculated 311.3 MOS/KG (273-304); Potassium 4.2 MMOL/L (3.5-5.1)
[2021-07-15 04:46] LABS: Hypochromia 2+; Microcytosis 2+
[2021-07-15 04:47] LABS: Platelet Estimate Normal; Polychromasia Slight
[2021-07-15] MEDS: NIFEdipine 10 MG CAPSULE PO SCH ×4 (06:11→23:56)
[2021-07-15] MEDS: BUDESONIDE 0.5 MG/2 ML NEB RESP TX SCH ×2 (07:33→20:19)
[2021-07-15] MEDS: FERROUS SULFATE 300 MG/5 ML UDCUP PO SCH ×2 (09:54→20:51)
[2021-07-15] MEDS: risperiDONE 1 MG TABLET PO SCH ×2 (09:54→20:50)
[2021-07-15] MEDS: methylPREDNISolone SOD SUC 40 MG/1 ML VIAL IV SCH ×2 (09:54→20:50)
[2021-07-15] MEDS: METOPROLOL TARTRATE 25 MG TABLET PO SCH ×2 (09:55→20:50)
[2021-07-15] MEDS: cefTRIAXone 1,000 MG in SODIUM CHLORIDE 0.9% 100 ML IV SCH (12:09)
[2021-07-15] MEDS: FAMOTIDINE 20 MG TABLET PO SCH (20:51)
[2021-07-15] MEDS: VANCOMYCIN INJ 1,500 MG in SODIUM CHLORIDE 0.9% 250 ML IV SCH (22:43)
[2021-07-16] MEDS: INSULIN LISPRO 100 UNIT/ML SUBCUT SCH ×4 (00:12→17:39)
[2021-07-16] MEDS: ALBUTEROL/IPRATROPIUM 3 ML NEB RESP TX SCH ×4 (01:00→20:00)
[2021-07-16 04:13] LABS: ABG Base Excess -1.2 MMOL/L (-2.5-2.5); ABG HCO3 23.4 MMOL/L (20-26); ABG Oxygen Saturation 99.3 % (95-100); ABG PH 7.482 (7.35-7.45); ABG TCO2 20.2 MMOL/L (23-27)
[2021-07-16 04:19] LABS: Basophils % 0.2 % (0.0-0.8); Eosinophils % 0.2 % (0.00-10.9); Hematocrit 26.5 VOL% (42.0-52.0); Hemoglobin 7.7 GM/DL (14.0-18.0); Immature Granulocytes % 0.5 %; Immature Granulocytes Absolute 0.08 #; Lymphocytes # 1.5 10*3/uL (1.4-4.0); Lymphocytes % 9.9 % (21.2-54.2); Mean Corpuscular HGB Conc 29.1 GM/DL (32-36); Monocytes % 6.6 % (1.7-12.7); Neutrophils % 82.6 % (38.7-73.9); Platelet Count 309 T/CUMM (130-400); Red Blood Count 3.84 MC/CUMM (3.8-5.5); Red Cell Distribution Width 21.4 % (9.3-17.3); White Blood Count 15.5 T/CUMM (4-12)
[2021-07-16 04:33] LABS: Calcium 8.9 MG/DL (8.5-10.1); Osmolality,Calculated 308.4 MOS/KG (273-304); Potassium 4.3 MMOL/L (3.5-5.1)
[2021-07-16] MEDS: hydrALAZINE 20 MG/1 ML VIAL IV PRN (06:15)
[2021-07-16] MEDS: NIFEdipine 10 MG CAPSULE PO SCH ×3 (06:16→17:39)
[2021-07-16] MEDS: BUDESONIDE 0.5 MG/2 ML NEB RESP TX SCH ×2 (07:15→20:00)
[2021-07-16] MEDS: METOPROLOL TARTRATE 25 MG TABLET PO SCH ×2 (09:03→21:18)
[2021-07-16] MEDS: methylPREDNISolone SOD SUC 40 MG/1 ML VIAL IV SCH ×2 (09:03→21:17)
[2021-07-16] MEDS: FERROUS SULFATE 300 MG/5 ML UDCUP PO SCH ×2 (09:03→21:18)
[2021-07-16] MEDS: risperiDONE 1 MG TABLET PO SCH ×2 (09:03→21:18)
[2021-07-16] MEDS: VANCOMYCIN INJ 1,500 MG in SODIUM CHLORIDE 0.9% 250 ML IV SCH (09:06)
[2021-07-16] MEDS: LEVOFLOXACIN INJ 500 MG/100 ML PREMIX IV SCH (09:06)
[2021-07-16] MEDS: FAMOTIDINE 20 MG TABLET PO SCH (21:17)
[2021-07-17] MEDS: ALBUTEROL/IPRATROPIUM 3 ML NEB RESP TX SCH ×5 (00:20→19:10)
[2021-07-17] MEDS: INSULIN LISPRO 100 UNIT/ML SUBCUT SCH ×4 (00:35→17:45)
[2021-07-17] MEDS: NIFEdipine 10 MG CAPSULE PO SCH ×4 (00:56→17:55)
[2021-07-17] MEDS: VANCOMYCIN INJ 1,500 MG in SODIUM CHLORIDE 0.9% 500 ML IV SCH ×2 (03:00→23:24)
[2021-07-17 03:26] LABS: ABG Base Excess -4.2 MMOL/L (-2.5-2.5); ABG HCO3 20.9 MMOL/L (20-26); ABG Oxygen Saturation 99.1 % (95-100); ABG PH 7.292 (7.35-7.45); ABG TCO2 20.9 MMOL/L (23-27)
[2021-07-17 03:51] LABS: Alanine Aminotransferase 58 U/L (16-61); Albumin 2.3 G/DL (3.4-5.0); Alkaline Phosphatase 109 U/L (45-117); Aspartate Amino Transferase 12 U/L (0-37); Bilirubin,Total < 0.39 MG/DL (0.20-1.00); Blood Urea Nitrogen 51 MG/DL (7-18); Calcium 8.9 MG/DL (8.5-10.1); Carbon Dioxide 24 MMOL/L (21-32); Chloride 121 MMOL/L (98-107); Estimated Glom Filtration Rate 66 ML/MIN; Glucose 176 MG/DL (74-106); Osmolality,Calculated 307.6 MOS/KG (273-304); Potassium 4.6 MMOL/L (3.5-5.1); Sodium 146 MMOL/L (136-145); Total Protein 8.2 G/DL (6.4-8.2)
[2021-07-17 04:02] LABS: Basophils % 0.3 % (0.0-0.8); Eosinophils # 0.1 10*3/uL (0.0-0.87); Eosinophils % 0.7 % (0.00-10.9); Hematocrit 28.1 VOL% (42.0-52.0); Immature Granulocytes % 0.8 %; Immature Granulocytes Absolute 0.08 #; Lymphocytes # 1.6 10*3/uL (1.4-4.0); Lymphocytes % 15.5 % (21.2-54.2); Mean Corpuscular HGB Conc 28.5 GM/DL (32-36); Mean Corpuscular Volume 70.6 FL (87-102); Monocytes # 0.5 10*3/uL (0.11-0.8); Monocytes % 5.2 % (1.7-12.7); Neutrophils % 77.5 % (38.7-73.9); Platelet Count 304 T/CUMM (130-400); Red Blood Count 3.98 MC/CUMM (3.8-5.5); Red Cell Distribution Width 22.1 % (9.3-17.3); White Blood Count 10.4 T/CUMM (4-12)
[2021-07-17 04:17] LABS: Hypochromia 1+; Microcytosis 2+; Platelet Estimate Normal; Target Cells Few
[2021-07-17] MEDS: BUDESONIDE 0.5 MG/2 ML NEB RESP TX SCH ×2 (06:50→19:10)
[2021-07-17] MEDS: risperiDONE 1 MG TABLET PO SCH ×2 (08:39→21:18)
[2021-07-17] MEDS: LEVOFLOXACIN INJ 500 MG/100 ML PREMIX IV SCH (08:39)
[2021-07-17] MEDS: FERROUS SULFATE 300 MG/5 ML UDCUP PO SCH ×2 (08:40→21:12)
[2021-07-17] MEDS: METOPROLOL TARTRATE 25 MG TABLET PO SCH (08:40)
[2021-07-17] MEDS: methylPREDNISolone SOD SUC 40 MG/1 ML VIAL IV SCH (08:41)
[2021-07-17] MEDS: predniSONE 10 MG TABLET PO SCH (15:23)
[2021-07-17] MEDS: METOPROLOL TARTRATE 50 MG TABLET PO SCH ×2 (21:12→21:27)
[2021-07-17] MEDS: FAMOTIDINE 20 MG TABLET PO SCH (21:12)
[2021-07-17] MEDS: SCOPOLAMINE 1.5 MG PATCH TRANSDERM SCH (21:25)
[2021-07-17] MEDS: hydrALAZINE 20 MG/1 ML VIAL IV PRN (22:07)
[2021-07-18] MEDS: INSULIN LISPRO 100 UNIT/ML SUBCUT SCH ×4 (00:17→18:01)
[2021-07-18] MEDS: NIFEdipine 10 MG CAPSULE PO SCH ×4 (00:34→17:31)
[2021-07-18] MEDS: ALBUTEROL/IPRATROPIUM 3 ML NEB RESP TX SCH ×4 (01:20→21:10)
[2021-07-18 04:16] LABS: Basophils % 0.3 % (0.0-0.8); Eosinophils # 0.2 10*3/uL (0.0-0.87); Eosinophils % 1.8 % (0.00-10.9); Hematocrit 27.9 VOL% (42.0-52.0); Hemoglobin 8.2 GM/DL (14.0-18.0); Immature Granulocytes % 0.7 %; Immature Granulocytes Absolute 0.07 #; Lymphocytes # 1.7 10*3/uL (1.4-4.0); Lymphocytes % 16.2 % (21.2-54.2); Mean Corpuscular HGB Conc 29.4 GM/DL (32-36); Mean Corpuscular Volume 69.4 FL (87-102); Monocytes % 9.3 % (1.7-12.7); Neutrophils % 71.7 % (38.7-73.9); Platelet Count 360 T/CUMM (130-400); Red Blood Count 4.02 MC/CUMM (3.8-5.5); Red Cell Distribution Width 22.4 % (9.3-17.3); White Blood Count 10.5 T/CUMM (4-12)
[2021-07-18 04:17] LABS: ABG Base Excess -3.1 MMOL/L (-2.5-2.5); ABG HCO3 21.8 MMOL/L (20-26); ABG Oxygen Saturation 99.7 % (95-100); ABG PH 7.375 (7.35-7.45); ABG TCO2 20.1 MMOL/L (23-27)
[2021-07-18 04:33] LABS: Calcium 9.4 MG/DL (8.5-10.1); Osmolality,Calculated 301.8 MOS/KG (273-304); Potassium 3.8 MMOL/L (3.5-5.1)
[2021-07-18] MEDS: LORazepam 2 MG/1 ML VIAL IV PRN (06:10)
[2021-07-18] MEDS: BUDESONIDE 0.5 MG/2 ML NEB RESP TX SCH ×2 (06:59→21:24)
[2021-07-18] MEDS: risperiDONE 1 MG TABLET PO SCH ×2 (08:08→20:15)
[2021-07-18] MEDS: LEVOFLOXACIN INJ 500 MG/100 ML PREMIX IV SCH (08:08)
[2021-07-18] MEDS: METOPROLOL TARTRATE 50 MG TABLET PO SCH (08:08)
[2021-07-18] MEDS: predniSONE 10 MG TABLET PO SCH (08:08)
[2021-07-18] MEDS: FERROUS SULFATE 300 MG/5 ML UDCUP PO SCH ×2 (08:10→20:14)
[2021-07-18] MEDS ORDERED: FUROSEMIDE 40 MG/4 ML VIAL IV ONE (08:58)
[2021-07-18] MEDS: METOPROLOL TARTRATE 25 MG TABLET PO SCH ×2 (09:19→20:15)
[2021-07-18] MEDS: FAMOTIDINE 20 MG TABLET PO SCH (20:15)
[2021-07-19] MEDS: ALBUTEROL/IPRATROPIUM 3 ML NEB RESP TX SCH ×4 (00:32→19:09)
[2021-07-19] MEDS: INSULIN LISPRO 100 UNIT/ML SUBCUT SCH ×4 (00:49→18:59)
[2021-07-19] MEDS: NIFEdipine 10 MG CAPSULE PO SCH ×4 (00:51→18:59)
[2021-07-19 04:44] LABS: ABG Base Excess -2.9 MMOL/L (-2.5-2.5); ABG Oxygen Saturation 99.2 % (95-100); ABG PCO2 40.8 MM HG (35-48)
[2021-07-19 05:14] LABS: INR 1.1; PT Patient Result 12.4 SECS (10.5-12.0); Partial Thromboplastin Time 25.4 SECS (23.8-32.1)
[2021-07-19 05:23] LABS: Phosphorous 4.1 MG/DL (2.5-4.9)
[2021-07-19] MEDS: BUDESONIDE 0.5 MG/2 ML NEB RESP TX SCH ×2 (07:22→19:09)
[2021-07-19] MEDS: risperiDONE 1 MG TABLET PO SCH ×2 (08:31→21:21)
[2021-07-19] MEDS: METOPROLOL TARTRATE 25 MG TABLET PO SCH ×2 (08:31→21:21)
[2021-07-19] MEDS: FERROUS SULFATE 300 MG/5 ML UDCUP PO SCH ×2 (08:31→21:09)
[2021-07-19] MEDS: LEVOFLOXACIN INJ 500 MG/100 ML PREMIX IV SCH (08:31)
[2021-07-19] MEDS: predniSONE 10 MG TABLET PO SCH (08:31)
[2021-07-19] MEDS: VANCOMYCIN INJ 1,500 MG in SODIUM CHLORIDE 0.9% 500 ML IV SCH (09:51)
[2021-07-19] MEDS: FAMOTIDINE 20 MG TABLET PO SCH (21:22)
[2021-07-20] MEDS: NIFEdipine 10 MG CAPSULE PO SCH ×4 (01:15→18:19)
[2021-07-20] MEDS: INSULIN LISPRO 100 UNIT/ML SUBCUT SCH ×4 (01:17→18:02)
[2021-07-20] MEDS: ALBUTEROL/IPRATROPIUM 3 ML NEB RESP TX SCH ×4 (01:30→19:30)
[2021-07-20 04:07] LABS: Arterial Base Excess iSTAT -4 MMOL/L (-2.5-2.5); Arterial Bicarbonate iSTAT 20.6 MMOL/L (20-26); Arterial O2 Saturation iSTAT 99 % (95-100); Arterial PCO2 iSTAT 34 MM HG (35-48); Arterial PO2 iSTAT 128 MM HG (80-95); Arterial Total CO2 iSTAT 22 MMO/L (23-27); Arterial pH iSTAT 7.392 (7.35-7.45)
[2021-07-20 04:15] LABS: Basophils % 0.2 % (0.0-0.8); Eosinophils # 0.1 10*3/uL (0.0-0.87); Eosinophils % 1.2 % (0.00-10.9); Hematocrit 30.1 VOL% (42.0-52.0); Hemoglobin 8.7 GM/DL (14.0-18.0); Immature Granulocytes % 1.1 %; Immature Granulocytes Absolute 0.12 #; Lymphocytes % 9.4 % (21.2-54.2); Mean Corpuscular HGB Conc 28.9 GM/DL (32-36); Mean Corpuscular Volume 70.3 FL (87-102); Monocytes % 9.3 % (1.7-12.7); Neutrophils % 78.8 % (38.7-73.9); Platelet Count 282 T/CUMM (130-400); Red Blood Count 4.28 MC/CUMM (3.8-5.5); Red Cell Distribution Width 22.5 % (9.3-17.3); White Blood Count 10.8 T/CUMM (4-12)
[2021-07-20 04:31] LABS: Hypochromia 2+; Microcytosis 1+
[2021-07-20 04:32] LABS: Ovalocytes Few; Polychromasia Slight
[2021-07-20 04:36] LABS: Albumin 2.6 G/DL (3.4-5.0); Bilirubin,Total 0.6 MG/DL (0.20-1.00); Calcium 9.7 MG/DL (8.5-10.1); Osmolality,Calculated 295.3 MOS/KG (273-304); Phosphorous 3.1 MG/DL (2.5-4.9); Potassium 3.7 MMOL/L (3.5-5.1); Total Protein 8.6 G/DL (6.4-8.2)
[2021-07-20] MEDS: LORazepam 2 MG/1 ML VIAL IV PRN ×2 (05:55→23:00)
[2021-07-20] MEDS: POLYVINYL ALCOHOL 1.4% OPH SOLN 15 ML BOTTLE BOTH EYES PRN (06:09)
[2021-07-20] MEDS ORDERED: LIDOCAINE 1%/EPI INJ 20 ML VIAL ONE (06:26)
[2021-07-20] MEDS: BUDESONIDE 0.5 MG/2 ML NEB RESP TX SCH ×2 (06:50→19:30)
[2021-07-20] MEDS ORDERED: MIDAZOLAM 2 MG/2 ML VIAL ONE (07:59)
[2021-07-20] MEDS ORDERED: fentaNYL 100 MCG/2 ML VIAL ONE (07:59)
[2021-07-20] MEDS ORDERED: ROCURONIUM 50 MG/5 ML VIAL IV ONE (07:59)
[2021-07-20] MEDS ORDERED: SEVOFLURANE 1 UNIT/15 MINUTE INH ONE (08:41)
[2021-07-20] MEDS ORDERED: LACTATED RINGERS 500 ML IV ONE (08:41)
[2021-07-20] MEDS ORDERED: PHENYLEPHRINE 1 MG/10 ML SYRINGE IV ONE (09:02)
[2021-07-20] MEDS: SCOPOLAMINE 1.5 MG PATCH TRANSDERM SCH (10:01)
[2021-07-20] MEDS: FERROUS SULFATE 300 MG/5 ML UDCUP PO SCH ×2 (10:02→21:13)
[2021-07-20] MEDS: METOPROLOL TARTRATE 25 MG TABLET PO SCH ×2 (10:02→21:13)
[2021-07-20] MEDS: predniSONE 10 MG TABLET PO SCH (10:03)
[2021-07-20] MEDS: risperiDONE 1 MG TABLET PO SCH ×2 (10:03→21:13)
[2021-07-20] MEDS: LEVOFLOXACIN INJ 500 MG/100 ML PREMIX IV SCH (10:30)
[2021-07-20] MEDS: FAMOTIDINE 20 MG TABLET PO SCH (21:13)
[2021-07-20] MEDS ORDERED: LORazepam 2 MG/1 ML VIAL ONE (22:50)
[2021-07-21] MEDS: ALBUTEROL/IPRATROPIUM 3 ML NEB RESP TX SCH ×4 (00:25→19:10)
[2021-07-21] MEDS: NIFEdipine 10 MG CAPSULE PO SCH ×4 (00:28→18:35)
[2021-07-21] MEDS: INSULIN LISPRO 100 UNIT/ML SUBCUT SCH ×4 (00:28→18:35)
[2021-07-21 03:50] LABS: Arterial Base Excess iSTAT -5 MMOL/L (-2.5-2.5); Arterial Bicarbonate iSTAT 19.9 MMOL/L (20-26); Arterial O2 Saturation iSTAT 99 % (95-100); Arterial PCO2 iSTAT 36 MM HG (35-48); Arterial PO2 iSTAT 145 MM HG (80-95); Arterial Total CO2 iSTAT 21 MMO/L (23-27); Arterial pH iSTAT 7.348 (7.35-7.45)
[2021-07-21 05:21] LABS: Basophils % 0.2 % (0.0-0.8); Eosinophils % 0.3 % (0.00-10.9); Hematocrit 30.4 VOL% (42.0-52.0); Hemoglobin 8.9 GM/DL (14.0-18.0); Immature Granulocytes % 1.6 %; Immature Granulocytes Absolute 0.15 #; Lymphocytes # 0.8 10*3/uL (1.4-4.0); Lymphocytes % 8.3 % (21.2-54.2); Mean Corpuscular HGB Conc 29.3 GM/DL (32-36); Mean Corpuscular Volume 69.4 FL (87-102); Monocytes # 1.1 10*3/uL (0.11-0.8); Neutrophils % 78.6 % (38.7-73.9); Platelet Count 259 T/CUMM (130-400); Red Blood Count 4.38 MC/CUMM (3.8-5.5); Red Cell Distribution Width 22.8 % (9.3-17.3); White Blood Count 9.6 T/CUMM (4-12)
[2021-07-21 05:36] LABS: Calcium 9.2 MG/DL (8.5-10.1); Osmolality,Calculated 297.1 MOS/KG (273-304); Phosphorous 3.9 MG/DL (2.5-4.9); Potassium 3.8 MMOL/L (3.5-5.1)
[2021-07-21] MEDS: BUDESONIDE 0.5 MG/2 ML NEB RESP TX SCH ×2 (07:05→19:10)
[2021-07-21] MEDS: FERROUS SULFATE 300 MG/5 ML UDCUP PO SCH ×2 (09:37→21:09)
[2021-07-21] MEDS: risperiDONE 1 MG TABLET PO SCH ×2 (09:37→21:08)
[2021-07-21] MEDS: LEVOFLOXACIN INJ 500 MG/100 ML PREMIX IV SCH (09:37)
[2021-07-21] MEDS: predniSONE 10 MG TABLET PO SCH (09:37)
[2021-07-21] MEDS: METOPROLOL TARTRATE 25 MG TABLET PO SCH ×2 (09:37→21:09)
[2021-07-21] MEDS: VANCOMYCIN INJ 1,500 MG in SODIUM CHLORIDE 0.9% 500 ML IV SCH (12:06)
[2021-07-21] MEDS: FAMOTIDINE 20 MG TABLET PO SCH (21:09)
[2021-07-22] MEDS: ALBUTEROL/IPRATROPIUM 3 ML NEB RESP TX SCH ×4 (00:12→18:56)
[2021-07-22] MEDS: INSULIN LISPRO 100 UNIT/ML SUBCUT SCH ×4 (00:28→18:04)
[2021-07-22] MEDS: NIFEdipine 10 MG CAPSULE PO SCH ×4 (00:28→18:19)
[2021-07-22 04:26] LABS: Basophils % 0.2 % (0.0-0.8); Eosinophils # 0.1 10*3/uL (0.0-0.87); Eosinophils % 0.5 % (0.00-10.9); Hematocrit 30.4 VOL% (42.0-52.0); Hemoglobin 8.8 GM/DL (14.0-18.0); Immature Granulocytes Absolute 0.11 #; Lymphocytes # 1.2 10*3/uL (1.4-4.0); Lymphocytes % 11.3 % (21.2-54.2); Mean Corpuscular HGB Conc 28.9 GM/DL (32-36); Mean Corpuscular Volume 70.4 FL (87-102); Monocytes # 1.4 10*3/uL (0.11-0.8); Monocytes % 12.4 % (1.7-12.7); Neutrophils % 74.6 % (38.7-73.9); Platelet Count 247 T/CUMM (130-400); Red Blood Count 4.32 MC/CUMM (3.8-5.5); Red Cell Distribution Width 22.6 % (9.3-17.3); White Blood Count 10.9 T/CUMM (4-12)
[2021-07-22 04:39] LABS: Calcium 9.5 MG/DL (8.5-10.1); Osmolality,Calculated 300.3 MOS/KG (273-304); Phosphorous 3.3 MG/DL (2.5-4.9)
[2021-07-22 05:15] LABS: Arterial Base Excess iSTAT -5 MMOL/L (-2.5-2.5); Arterial Bicarbonate iSTAT 20.6 MMOL/L (20-26); Arterial O2 Saturation iSTAT 99 % (95-100); Arterial PCO2 iSTAT 40 MM HG (35-48); Arterial PO2 iSTAT 131 MM HG (80-95); Arterial Total CO2 iSTAT 22 MMO/L (23-27); Arterial pH iSTAT 7.324 (7.35-7.45)
[2021-07-22] MEDS: BUDESONIDE 0.5 MG/2 ML NEB RESP TX SCH ×2 (06:56→18:57)
[2021-07-22] MEDS: predniSONE 10 MG TABLET PO SCH (08:02)
[2021-07-22] MEDS: FERROUS SULFATE 300 MG/5 ML UDCUP PO SCH ×2 (08:02→20:55)
[2021-07-22] MEDS: risperiDONE 1 MG TABLET PO SCH ×2 (08:02→20:55)
[2021-07-22] MEDS: METOPROLOL TARTRATE 25 MG TABLET PO SCH ×2 (08:02→20:55)
[2021-07-22] MEDS: LEVOFLOXACIN INJ 500 MG/100 ML PREMIX IV SCH (09:10)
[2021-07-22] MEDS: ENOXAPARIN 40 MG/0.4 ML SYRINGE SUBCUT SCH (11:50)
[2021-07-22] MEDS: FAMOTIDINE 20 MG TABLET PO SCH (20:55)
[2021-07-23] MEDS: ALBUTEROL/IPRATROPIUM 3 ML NEB RESP TX SCH ×4 (00:35→18:04)
[2021-07-23] MEDS: INSULIN LISPRO 100 UNIT/ML SUBCUT SCH ×5 (00:47→23:29)
[2021-07-23] MEDS: NIFEdipine 10 MG CAPSULE PO SCH ×4 (00:49→17:53)
[2021-07-23 04:30] LABS: Arterial Base Excess iSTAT -4 MMOL/L (-2.5-2.5); Arterial Bicarbonate iSTAT 21.9 MMOL/L (20-26); Arterial O2 Saturation iSTAT 97 % (95-100); Arterial PCO2 iSTAT 45 MM HG (35-48); Arterial PO2 iSTAT 102 MM HG (80-95); Arterial Total CO2 iSTAT 23 MMO/L (23-27); Arterial pH iSTAT 7.298 (7.35-7.45)
[2021-07-23 06:11] LABS: Osmolality,Calculated 302.8 MOS/KG (273-304); Potassium 4.2 MMOL/L (3.5-5.1)
[2021-07-23 06:23] LABS: Basophils % 0.1 % (0.0-0.8); Eosinophils # 0.1 10*3/uL (0.0-0.87); Eosinophils % 1.4 % (0.00-10.9); Immature Granulocytes % 0.9 %; Immature Granulocytes Absolute 0.09 #; Lymphocytes # 1.4 10*3/uL (1.4-4.0); Lymphocytes % 15.1 % (21.2-54.2); Monocytes # 0.9 10*3/uL (0.11-0.8); Monocytes % 9.5 % (1.7-12.7); NRBC # 0.02 10*3/uL; Platelet Count 241 T/CUMM (130-400); Red Blood Count 4.43 MC/CUMM (3.8-5.5); Red Cell Distribution Width 22.9 % (9.3-17.3); White Blood Count 9.5 T/CUMM (4-12)
[2021-07-23 07:03] LABS: Platelet Estimate Normal
[2021-07-23 07:04] LABS: Anisocytosis 2+; Hypochromia Slight; Ovalocytes Few; Poikilocytosis 1+; Tear Drop Cells Few
[2021-07-23 07:05] LABS: Macrocytosis Slight
[2021-07-23] MEDS: BUDESONIDE 0.5 MG/2 ML NEB RESP TX SCH ×2 (07:23→18:04)
[2021-07-23] MEDS: risperiDONE 1 MG TABLET PO SCH ×2 (09:03→20:20)
[2021-07-23] MEDS: METOPROLOL TARTRATE 25 MG TABLET PO SCH ×2 (09:03→20:20)
[2021-07-23] MEDS: predniSONE 10 MG TABLET PO SCH (09:03)
[2021-07-23] MEDS: FERROUS SULFATE 300 MG/5 ML UDCUP PO SCH ×2 (09:03→20:20)
[2021-07-23] MEDS: LEVOFLOXACIN INJ 500 MG/100 ML PREMIX IV SCH (09:04)
[2021-07-23] MEDS: SCOPOLAMINE 1.5 MG PATCH TRANSDERM SCH (09:04)
[2021-07-23] MEDS: VANCOMYCIN INJ 1,500 MG in SODIUM CHLORIDE 0.9% 500 ML IV SCH (10:35)
[2021-07-23] MEDS: ENOXAPARIN 40 MG/0.4 ML SYRINGE SUBCUT SCH (11:48)
[2021-07-23] MEDS: FAMOTIDINE 20 MG TABLET PO SCH (20:20)
[2021-07-24] MEDS: NIFEdipine 10 MG CAPSULE PO SCH ×4 (00:26→17:31)
[2021-07-24] MEDS: ALBUTEROL/IPRATROPIUM 3 ML NEB RESP TX SCH ×4 (01:05→20:05)
[2021-07-24 04:11] LABS: Calcium 9.7 MG/DL (8.5-10.1); Potassium 4.4 MMOL/L (3.5-5.1)
[2021-07-24 04:15] LABS: ABG Base Excess -3.1 MMOL/L (-2.5-2.5); ABG HCO3 21.8 MMOL/L (20-26); ABG Oxygen Saturation 98.3 % (95-100); ABG PH 7.297 (7.35-7.45)
[2021-07-24 04:22] LABS: Basophils % 0.2 % (0.0-0.8); Eosinophils # 0.2 10*3/uL (0.0-0.87); Eosinophils % 1.7 % (0.00-10.9); Hematocrit 29.2 VOL% (42.0-52.0); Hemoglobin 8.3 GM/DL (14.0-18.0); Immature Granulocytes Absolute 0.09 #; Lymphocytes # 1.3 10*3/uL (1.4-4.0); Lymphocytes % 14.5 % (21.2-54.2); Mean Corpuscular HGB Conc 28.4 GM/DL (32-36); Mean Corpuscular Volume 69.7 FL (87-102); Monocytes # 0.7 10*3/uL (0.11-0.8); Monocytes % 8.3 % (1.7-12.7); NRBC # 0.02 10*3/uL; Neutrophils % 74.3 % (38.7-73.9); Platelet Count 291 T/CUMM (130-400); Red Blood Count 4.19 MC/CUMM (3.8-5.5); Red Cell Distribution Width 23.2 % (9.3-17.3); White Blood Count 8.8 T/CUMM (4-12)
[2021-07-24] MEDS: INSULIN LISPRO 100 UNIT/ML SUBCUT SCH ×4 (06:02→23:47)
[2021-07-24] MEDS: BUDESONIDE 0.5 MG/2 ML NEB RESP TX SCH ×2 (07:52→20:05)
[2021-07-24] MEDS: predniSONE 10 MG TABLET PO SCH (08:36)
[2021-07-24] MEDS: risperiDONE 1 MG TABLET PO SCH ×2 (08:36→21:08)
[2021-07-24] MEDS: LEVOFLOXACIN INJ 500 MG/100 ML PREMIX IV SCH (08:37)
[2021-07-24] MEDS: METOPROLOL TARTRATE 25 MG TABLET PO SCH ×2 (08:37→21:08)
[2021-07-24] MEDS: FERROUS SULFATE 300 MG/5 ML UDCUP PO SCH ×2 (08:37→21:08)
[2021-07-24] MEDS: CETIRIZINE 1 MG/ML 30 ML/BOTTLE PO SCH (10:01)
[2021-07-24] MEDS: ENOXAPARIN 40 MG/0.4 ML SYRINGE SUBCUT SCH (11:35)
[2021-07-24] MEDS: FAMOTIDINE 20 MG TABLET PO SCH (21:08)
[2021-07-25] MEDS: NIFEdipine 10 MG CAPSULE PO SCH ×4 (00:42→17:35)
[2021-07-25] MEDS: ALBUTEROL/IPRATROPIUM 3 ML NEB RESP TX SCH ×4 (01:05→19:54)
[2021-07-25 04:48] LABS: Osmolality,Calculated 302.1 MOS/KG (273-304); Potassium 4.4 MMOL/L (3.5-5.1)
[2021-07-25 05:21] LABS: Basophils % 0.3 % (0.0-0.8); Eosinophils # 0.2 10*3/uL (0.0-0.87); Eosinophils % 1.7 % (0.00-10.9); Hematocrit 33.7 VOL% (42.0-52.0); Hemoglobin 9.6 GM/DL (14.0-18.0); Immature Granulocytes % 1.5 %; Immature Granulocytes Absolute 0.14 #; Lymphocytes # 1.8 10*3/uL (1.4-4.0); Lymphocytes % 19.5 % (21.2-54.2); Mean Corpuscular HGB Conc 28.5 GM/DL (32-36); Mean Corpuscular Volume 69.6 FL (87-102); Monocytes # 0.7 10*3/uL (0.11-0.8); Monocytes % 7.9 % (1.7-12.7); NRBC # 0.03 10*3/uL; Neutrophils % 69.1 % (38.7-73.9); Platelet Count 268 T/CUMM (130-400); Red Blood Count 4.84 MC/CUMM (3.8-5.5); Red Cell Distribution Width 22.9 % (9.3-17.3); White Blood Count 9.4 T/CUMM (4-12)
[2021-07-25] MEDS: INSULIN LISPRO 100 UNIT/ML SUBCUT SCH ×3 (05:54→17:35)
[2021-07-25] MEDS: BUDESONIDE 0.5 MG/2 ML NEB RESP TX SCH ×2 (07:40→19:54)
[2021-07-25] MEDS: CETIRIZINE 1 MG/ML 30 ML/BOTTLE PO SCH (08:21)
[2021-07-25] MEDS: predniSONE 10 MG TABLET PO SCH (08:22)
[2021-07-25] MEDS: METOPROLOL TARTRATE 25 MG TABLET PO SCH ×2 (08:22→21:29)
[2021-07-25] MEDS: FERROUS SULFATE 300 MG/5 ML UDCUP PO SCH ×2 (08:22→21:29)
[2021-07-25] MEDS: risperiDONE 1 MG TABLET PO SCH ×2 (08:23→21:29)
[2021-07-25] MEDS: LEVOFLOXACIN INJ 500 MG/100 ML PREMIX IV SCH (08:23)
[2021-07-25] MEDS: VANCOMYCIN INJ 1,500 MG in SODIUM CHLORIDE 0.9% 500 ML IV SCH (09:46)
[2021-07-25] MEDS: ENOXAPARIN 40 MG/0.4 ML SYRINGE SUBCUT SCH (11:33)
[2021-07-25] MEDS: FAMOTIDINE 20 MG TABLET PO SCH (21:29)
[2021-07-26] MEDS: INSULIN LISPRO 100 UNIT/ML SUBCUT SCH ×4 (00:17→18:13)
[2021-07-26] MEDS: NIFEdipine 10 MG CAPSULE PO SCH ×4 (00:49→18:13)
[2021-07-26] MEDS: ALBUTEROL/IPRATROPIUM 3 ML NEB RESP TX SCH ×4 (01:05→19:05)
[2021-07-26 03:13] LABS: Arterial Base Excess iSTAT -1 MMOL/L (-2.5-2.5); Arterial Bicarbonate iSTAT 26.7 MMOL/L (20-26); Arterial O2 Saturation iSTAT 98 % (95-100); Arterial PCO2 iSTAT 57 MM HG (35-48); Arterial PO2 iSTAT 120 MM HG (80-95); Arterial Total CO2 iSTAT 28 MMO/L (23-27); Arterial pH iSTAT 7.279 (7.35-7.45)
[2021-07-26 04:37] LABS: Phosphorous 3.4 MG/DL (2.5-4.9)
[2021-07-26 04:44] LABS: Osmolality,Calculated 304.1 MOS/KG (273-304); Potassium 4.4 MMOL/L (3.5-5.1)
[2021-07-26 04:51] LABS: Basophils % 0.2 % (0.0-0.8); Eosinophils # 0.2 10*3/uL (0.0-0.87); Eosinophils % 1.7 % (0.00-10.9); Hematocrit 33.6 VOL% (42.0-52.0); Hemoglobin 9.5 GM/DL (14.0-18.0); Immature Granulocytes % 2.2 %; Lymphocytes % 21.5 % (21.2-54.2); Mean Corpuscular HGB Conc 28.3 GM/DL (32-36); Mean Corpuscular Volume 69.9 FL (87-102); Monocytes # 0.7 10*3/uL (0.11-0.8); Monocytes % 7.2 % (1.7-12.7); NRBC # 0.02 10*3/uL; Neutrophils % 67.2 % (38.7-73.9); Platelet Count 229 T/CUMM (130-400); Red Blood Count 4.81 MC/CUMM (3.8-5.5); Red Cell Distribution Width 22.7 % (9.3-17.3); White Blood Count 9.1 T/CUMM (4-12)
[2021-07-26 04:55] LABS: Eosinophils 1 % (0-10); Hypochromia 1+; Lymphocytes 13 % (20-55); Microcytosis 1+; Platelet Estimate Adequate; Total Cells Counted 100
[2021-07-26] MEDS: BUDESONIDE 0.5 MG/2 ML NEB RESP TX SCH ×2 (07:00→19:12)
[2021-07-26] MEDS: FERROUS SULFATE 300 MG/5 ML UDCUP PO SCH ×2 (09:53→21:55)
[2021-07-26] MEDS: CETIRIZINE 1 MG/ML 30 ML/BOTTLE PO SCH (09:53)
[2021-07-26] MEDS: predniSONE 10 MG TABLET PO SCH (09:53)
[2021-07-26] MEDS: risperiDONE 1 MG TABLET PO SCH ×2 (09:53→21:55)
[2021-07-26] MEDS: METOPROLOL TARTRATE 25 MG TABLET PO SCH ×2 (09:53→21:54)
[2021-07-26] MEDS: SCOPOLAMINE 1.5 MG PATCH TRANSDERM SCH (09:54)
[2021-07-26] MEDS: LEVOFLOXACIN INJ 500 MG/100 ML PREMIX IV SCH (09:54)
[2021-07-26] MEDS: ENOXAPARIN 40 MG/0.4 ML SYRINGE SUBCUT SCH (11:56)
[2021-07-26] MEDS: FAMOTIDINE 20 MG TABLET PO SCH (21:54)
[2021-07-27] MEDS: INSULIN LISPRO 100 UNIT/ML SUBCUT SCH ×4 (00:14→17:42)
[2021-07-27] MEDS: NIFEdipine 10 MG CAPSULE PO SCH ×4 (00:14→17:42)
[2021-07-27] MEDS: ALBUTEROL/IPRATROPIUM 3 ML NEB RESP TX SCH ×4 (01:02→19:00)
[2021-07-27 04:28] LABS: Osmolality,Calculated 299.3 MOS/KG (273-304); Potassium 4.4 MMOL/L (3.5-5.1)
[2021-07-27 04:32] LABS: Basophils % 0.3 % (0.0-0.8); Eosinophils # 0.1 10*3/uL (0.0-0.87); Eosinophils % 1.4 % (0.00-10.9); Hemoglobin 9.5 GM/DL (14.0-18.0); Immature Granulocytes % 2.3 %; Immature Granulocytes Absolute 0.22 #; Lymphocytes # 1.5 10*3/uL (1.4-4.0); Lymphocytes % 15.8 % (21.2-54.2); Mean Corpuscular Volume 69.3 FL (87-102); Monocytes # 0.7 10*3/uL (0.11-0.8); Monocytes % 7.4 % (1.7-12.7); NRBC # 0.02 10*3/uL; Neutrophils % 72.8 % (38.7-73.9); Platelet Count 252 T/CUMM (130-400); Red Blood Count 4.73 MC/CUMM (3.8-5.5); White Blood Count 9.6 T/CUMM (4-12)
[2021-07-27 04:33] LABS: Hematocrit 32.8 VOL% (42.0-52.0)
[2021-07-27 04:34] LABS: Hypochromia 2+; Microcytosis 2+; Ovalocytes Few
[2021-07-27 04:35] LABS: Platelet Estimate Normal
[2021-07-27] MEDS: BUDESONIDE 0.5 MG/2 ML NEB RESP TX SCH ×2 (06:50→19:00)
[2021-07-27] MEDS: METOPROLOL TARTRATE 25 MG TABLET PO SCH ×2 (09:26→20:53)
[2021-07-27] MEDS: predniSONE 10 MG TABLET PO SCH (09:26)
[2021-07-27] MEDS: FERROUS SULFATE 300 MG/5 ML UDCUP PO SCH ×2 (09:26→20:53)
[2021-07-27] MEDS: risperiDONE 1 MG TABLET PO SCH ×2 (09:26→20:53)
[2021-07-27] MEDS: CETIRIZINE 1 MG/ML 30 ML/BOTTLE PO SCH (09:31)
[2021-07-27] MEDS: ENOXAPARIN 40 MG/0.4 ML SYRINGE SUBCUT SCH (12:07)
[2021-07-27] MEDS: FAMOTIDINE 20 MG TABLET PO SCH (20:53)
[2021-07-27] MEDS: LORazepam 2 MG/1 ML VIAL IV PRN (21:12)
[2021-07-27] MEDS ORDERED: LORazepam 2 MG/1 ML VIAL IV ONE (22:21)
[2021-07-28] MEDS: NIFEdipine 10 MG CAPSULE PO SCH ×4 (00:28→17:45)
[2021-07-28] MEDS: INSULIN LISPRO 100 UNIT/ML SUBCUT SCH ×4 (00:29→17:45)
[2021-07-28] MEDS: ALBUTEROL/IPRATROPIUM 3 ML NEB RESP TX SCH ×4 (03:10→19:16)
[2021-07-28] MEDS: LORazepam 2 MG/1 ML VIAL IV PRN ×3 (03:25→21:15)
[2021-07-28 05:13] LABS: Basophils % 0.3 % (0.0-0.8); Eosinophils # 0.1 10*3/uL (0.0-0.87); Eosinophils % 1.2 % (0.00-10.9); Hematocrit 33.2 VOL% (42.0-52.0); Hemoglobin 9.8 GM/DL (14.0-18.0); Immature Granulocytes Absolute 0.19 #; Lymphocytes # 1.4 10*3/uL (1.4-4.0); Mean Corpuscular HGB Conc 29.5 GM/DL (32-36); Mean Corpuscular Volume 69.2 FL (87-102); Monocytes # 0.9 10*3/uL (0.11-0.8); Monocytes % 9.7 % (1.7-12.7); Neutrophils % 71.8 % (38.7-73.9); Platelet Count 272 T/CUMM (130-400); Red Cell Distribution Width 22.7 % (9.3-17.3); White Blood Count 9.5 T/CUMM (4-12)
[2021-07-28 05:15] LABS: Hypochromia 1+; Microcytosis 2+; Polychromasia Slight
[2021-07-28 05:16] LABS: Platelet Estimate Normal; Target Cells Slight
[2021-07-28] MEDS: BUDESONIDE 0.5 MG/2 ML NEB RESP TX SCH ×2 (07:33→19:16)
[2021-07-28] MEDS: FERROUS SULFATE 300 MG/5 ML UDCUP PO SCH ×2 (08:26→20:19)
[2021-07-28] MEDS: predniSONE 10 MG TABLET PO SCH (08:27)
[2021-07-28] MEDS: METOPROLOL TARTRATE 25 MG TABLET PO SCH ×2 (08:27→20:20)
[2021-07-28] MEDS: risperiDONE 1 MG TABLET PO SCH ×2 (08:27→20:19)
[2021-07-28] MEDS: CETIRIZINE 1 MG/ML 30 ML/BOTTLE PO SCH (08:28)
[2021-07-28] MEDS: VANCOMYCIN INJ 1,500 MG in SODIUM CHLORIDE 0.9% 500 ML IV SCH ×2 (09:24→10:35)
[2021-07-28] MEDS: CEFTAROLINE 600 MG in SODIUM CHLORIDE 0.9% 100 ML IV SCH ×2 (09:35→21:14)
[2021-07-28] MEDS: ENOXAPARIN 40 MG/0.4 ML SYRINGE SUBCUT SCH (11:33)
[2021-07-28] MEDS ORDERED: LORazepam 2 MG/1 ML VIAL ONE (13:17)
[2021-07-28] MEDS: FAMOTIDINE 20 MG TABLET PO SCH (20:20)
[2021-07-29] MEDS: INSULIN LISPRO 100 UNIT/ML SUBCUT SCH ×4 (00:29→17:33)
[2021-07-29] MEDS: NIFEdipine 10 MG CAPSULE PO SCH ×4 (00:29→17:34)
[2021-07-29 04:36] LABS: Basophils % 0.4 % (0.0-0.8); Eosinophils # 0.2 10*3/uL (0.0-0.87); Eosinophils % 2.2 % (0.00-10.9); Hematocrit 32.2 VOL% (42.0-52.0); Hemoglobin 9.4 GM/DL (14.0-18.0); Immature Granulocytes % 1.9 %; Immature Granulocytes Absolute 0.21 #; Lymphocytes # 1.9 10*3/uL (1.4-4.0); Mean Corpuscular HGB Conc 29.2 GM/DL (32-36); Mean Corpuscular Volume 69.8 FL (87-102); Monocytes # 0.9 10*3/uL (0.11-0.8); Monocytes % 8.1 % (1.7-12.7); Neutrophils % 70.4 % (38.7-73.9); Platelet Count 281 T/CUMM (130-400); Red Blood Count 4.61 MC/CUMM (3.8-5.5); Red Cell Distribution Width 22.7 % (9.3-17.3); White Blood Count 10.9 T/CUMM (4-12)
[2021-07-29 05:10] LABS: Anisocytosis 1+; Hypochromia 2+; Microcytosis 1+; Ovalocytes Slight; Target Cells Few
[2021-07-29 05:11] LABS: Platelet Estimate Normal
[2021-07-29 05:14] LABS: Calcium 9.5 MG/DL (8.5-10.1); Osmolality,Calculated 296.3 MOS/KG (273-304); Potassium 4.1 MMOL/L (3.5-5.1)
[2021-07-29] MEDS: ALBUTEROL/IPRATROPIUM 3 ML NEB RESP TX SCH ×4 (06:47→20:07)
[2021-07-29] MEDS: BUDESONIDE 0.5 MG/2 ML NEB RESP TX SCH ×2 (06:47→20:07)
[2021-07-29] MEDS: risperiDONE 1 MG TABLET PO SCH ×2 (08:26→21:34)
[2021-07-29] MEDS: FERROUS SULFATE 300 MG/5 ML UDCUP PO SCH ×2 (08:26→21:34)
[2021-07-29] MEDS: METOPROLOL TARTRATE 25 MG TABLET PO SCH ×2 (08:27→21:34)
[2021-07-29] MEDS: predniSONE 10 MG TABLET PO SCH (08:27)
[2021-07-29] MEDS: SCOPOLAMINE 1.5 MG PATCH TRANSDERM SCH (08:27)
[2021-07-29] MEDS: CETIRIZINE 1 MG/ML 30 ML/BOTTLE PO SCH (08:28)
[2021-07-29 08:30] LABS: Arterial Base Excess iSTAT 3 MMOL/L (-2.5-2.5); Arterial Bicarbonate iSTAT 28.8 MMOL/L (20-26); Arterial O2 Saturation iSTAT 94 % (95-100); Arterial PCO2 iSTAT 47 MM HG (35-48); Arterial PO2 iSTAT 73 MM HG (80-95); Arterial Total CO2 iSTAT 30 MMO/L (23-27); Arterial pH iSTAT 7.397 (7.35-7.45)
[2021-07-29] MEDS: CEFTAROLINE 600 MG in SODIUM CHLORIDE 0.9% 100 ML IV SCH ×2 (09:44→21:34)
[2021-07-29] MEDS: ENOXAPARIN 40 MG/0.4 ML SYRINGE SUBCUT SCH (11:37)
[2021-07-29] MEDS: FAMOTIDINE 20 MG TABLET PO SCH (21:34)
[2021-07-30] MEDS: ALBUTEROL/IPRATROPIUM 3 ML NEB RESP TX SCH ×4 (00:08→19:52)
[2021-07-30] MEDS: NIFEdipine 10 MG CAPSULE PO SCH ×4 (00:58→17:12)
[2021-07-30] MEDS: INSULIN LISPRO 100 UNIT/ML SUBCUT SCH ×5 (01:05→23:05)
[2021-07-30 04:44] LABS: Basophils % 0.4 % (0.0-0.8); Eosinophils # 0.2 10*3/uL (0.0-0.87); Eosinophils % 2.6 % (0.00-10.9); Hematocrit 30.4 VOL% (42.0-52.0); Hemoglobin 8.8 GM/DL (14.0-18.0); Immature Granulocytes Absolute 0.31 #; Lymphocytes # 1.7 10*3/uL (1.4-4.0); Lymphocytes % 22.3 % (21.2-54.2); Mean Corpuscular HGB Conc 28.9 GM/DL (32-36); Mean Corpuscular Volume 70.2 FL (87-102); Monocytes # 0.7 10*3/uL (0.11-0.8); Monocytes % 8.7 % (1.7-12.7); Platelet Count 267 T/CUMM (130-400); Red Blood Count 4.33 MC/CUMM (3.8-5.5); White Blood Count 7.8 T/CUMM (4-12)
[2021-07-30 04:55] LABS: Calcium 9.1 MG/DL (8.5-10.1); Osmolality,Calculated 292.4 MOS/KG (273-304); Potassium 4.3 MMOL/L (3.5-5.1)
[2021-07-30 05:13] LABS: Hypochromia 2+
[2021-07-30 05:14] LABS: Microcytosis 2+; Ovalocytes Few; Polychromasia Slight; Tear Drop Cells Slight
[2021-07-30 05:15] LABS: Platelet Estimate Normal
[2021-07-30] MEDS: BUDESONIDE 0.5 MG/2 ML NEB RESP TX SCH ×2 (07:20→19:52)
[2021-07-30] MEDS: VANCOMYCIN INJ 1,500 MG in SODIUM CHLORIDE 0.9% 500 ML IV SCH (08:45)
[2021-07-30] MEDS: METOPROLOL TARTRATE 25 MG TABLET PO SCH ×2 (08:47→20:02)
[2021-07-30] MEDS: risperiDONE 1 MG TABLET PO SCH ×2 (08:47→20:02)
[2021-07-30] MEDS: FERROUS SULFATE 300 MG/5 ML UDCUP PO SCH ×2 (08:47→20:02)
[2021-07-30] MEDS: predniSONE 10 MG TABLET PO SCH (08:47)
[2021-07-30] MEDS: CETIRIZINE 1 MG/ML 30 ML/BOTTLE PO SCH (09:31)
[2021-07-30] MEDS: ENOXAPARIN 40 MG/0.4 ML SYRINGE SUBCUT SCH (11:44)
[2021-07-30] MEDS: CEFTAROLINE 600 MG in SODIUM CHLORIDE 0.9% 100 ML IV SCH (11:44)
[2021-07-30] MEDS: FAMOTIDINE 20 MG TABLET PO SCH (20:02)
[2021-07-31] MEDS: CEFTAROLINE 600 MG in SODIUM CHLORIDE 0.9% 100 ML IV SCH ×2 (01:12→11:54)
[2021-07-31] MEDS: NIFEdipine 10 MG CAPSULE PO SCH ×5 (01:12→23:11)
[2021-07-31] MEDS: ALBUTEROL/IPRATROPIUM 3 ML NEB RESP TX SCH ×4 (01:30→19:40)
[2021-07-31 04:04] LABS: ABG Base Excess 3.1 MMOL/L (-2.5-2.5); ABG HCO3 27.1 MMOL/L (20-26); ABG Oxygen Saturation 94.6 % (95-100); ABG PCO2 49.9 MM HG (35-48); ABG PH 7.377 (7.35-7.45); ABG PO2 78.9 MM HG (80-95); ABG TCO2 25.8 MMOL/L (23-27)
[2021-07-31] MEDS: INSULIN LISPRO 100 UNIT/ML SUBCUT SCH ×4 (06:43→23:10)
[2021-07-31 06:44] LABS: Basophils # 0.1 10*3/uL (0.0-0.2); Basophils % 0.6 % (0.0-0.8); Eosinophils # 0.2 10*3/uL (0.0-0.87); Eosinophils % 2.2 % (0.00-10.9); Hematocrit 30.9 VOL% (42.0-52.0); Hemoglobin 8.9 GM/DL (14.0-18.0); Immature Granulocytes % 4.7 %; Immature Granulocytes Absolute 0.43 #; Lymphocytes # 1.7 10*3/uL (1.4-4.0); Lymphocytes % 18.6 % (21.2-54.2); Mean Corpuscular HGB Conc 28.8 GM/DL (32-36); Mean Corpuscular Volume 69.9 FL (87-102); Monocytes # 0.9 10*3/uL (0.11-0.8); Monocytes % 9.5 % (1.7-12.7); NRBC # 0.04 10*3/uL; Neutrophils % 64.4 % (38.7-73.9); Platelet Count 259 T/CUMM (130-400); Red Blood Count 4.42 MC/CUMM (3.8-5.5); Red Cell Distribution Width 23.8 % (9.3-17.3); White Blood Count 9.1 T/CUMM (4-12)
[2021-07-31 06:46] LABS: Alanine Aminotransferase 31 U/L (16-61); Alkaline Phosphatase 125 U/L (45-117); Aspartate Amino Transferase 14 U/L (0-37); Bilirubin,Total < 0.39 MG/DL (0.20-1.00); Blood Urea Nitrogen 39 MG/DL (7-18); Calcium 9.3 MG/DL (8.5-10.1); Carbon Dioxide 28 MMOL/L (21-32); Chloride 108 MMOL/L (98-107); Estimated Glom Filtration Rate 65 ML/MIN; Glucose 137 MG/DL (74-106); Osmolality,Calculated 287.5 MOS/KG (273-304); Potassium 4.6 MMOL/L (3.5-5.1); Sodium 139 MMOL/L (136-145); Total Protein 8.1 G/DL (6.4-8.2)
[2021-07-31 06:57] LABS: Platelet Estimate Normal
[2021-07-31 06:58] LABS: Anisocytosis 2+; Target Cells 1+; Tear Drop Cells Few
[2021-07-31 07:00] LABS: Hypochromia 1+; Macrocytosis Slight
[2021-07-31] MEDS: BUDESONIDE 0.5 MG/2 ML NEB RESP TX SCH ×2 (07:06→19:40)
[2021-07-31] MEDS: CETIRIZINE 1 MG/ML 30 ML/BOTTLE PO SCH (08:58)
[2021-07-31] MEDS: predniSONE 10 MG TABLET PO SCH (08:58)
[2021-07-31] MEDS: METOPROLOL TARTRATE 25 MG TABLET PO SCH ×2 (08:58→20:00)
[2021-07-31] MEDS: FERROUS SULFATE 300 MG/5 ML UDCUP PO SCH ×2 (08:58→20:00)
[2021-07-31] MEDS: risperiDONE 1 MG TABLET PO SCH ×2 (08:58→20:00)
[2021-07-31] MEDS: ENOXAPARIN 40 MG/0.4 ML SYRINGE SUBCUT SCH (11:53)
[2021-07-31] MEDS: FAMOTIDINE 20 MG TABLET PO SCH (20:00)
[2021-08-01] MEDS: CEFTAROLINE 600 MG in SODIUM CHLORIDE 0.9% 100 ML IV SCH ×3 (00:28→23:50)
[2021-08-01 03:29] LABS: Arterial Base Excess iSTAT 5 MMOL/L (-2.5-2.5); Arterial Bicarbonate iSTAT 30.3 MMOL/L (20-26); Arterial O2 Saturation iSTAT 96 % (95-100); Arterial PCO2 iSTAT 48 MM HG (35-48); Arterial PO2 iSTAT 80 MM HG (80-95); Arterial Total CO2 iSTAT 32 MMO/L (23-27); Arterial pH iSTAT 7.405 (7.35-7.45)
[2021-08-01 05:17] LABS: Basophils % 0.5 % (0.0-0.8); Eosinophils # 0.1 10*3/uL (0.0-0.87); Eosinophils % 1.7 % (0.00-10.9); Hematocrit 30.7 VOL% (42.0-52.0); Hemoglobin 8.9 GM/DL (14.0-18.0); Immature Granulocytes % 3.6 %; Lymphocytes # 1.8 10*3/uL (1.4-4.0); Lymphocytes % 21.4 % (21.2-54.2); Mean Corpuscular Volume 71.4 FL (87-102); Monocytes # 0.8 10*3/uL (0.11-0.8); Monocytes % 9.1 % (1.7-12.7); NRBC # 0.04 10*3/uL; Neutrophils % 63.7 % (38.7-73.9); Platelet Count 248 T/CUMM (130-400); Red Cell Distribution Width 23.1 % (9.3-17.3); White Blood Count 8.2 T/CUMM (4-12)
[2021-08-01 05:37] LABS: Albumin 2.2 G/DL (3.4-5.0); Bilirubin,Total 0.5 MG/DL (0.20-1.00); Calcium 9.3 MG/DL (8.5-10.1); Osmolality,Calculated 287.5 MOS/KG (273-304); Potassium 4.4 MMOL/L (3.5-5.1); Total Protein 7.8 G/DL (6.4-8.2)
[2021-08-01 05:41] LABS: Anisocytosis 3+; Hypochromia 2+; Microcytosis 2+; Ovalocytes Few; Poikilocytosis 2+; Polychromasia Slight
[2021-08-01] MEDS: INSULIN LISPRO 100 UNIT/ML SUBCUT SCH ×4 (05:41→23:51)
[2021-08-01] MEDS: NIFEdipine 10 MG CAPSULE PO SCH ×4 (05:41→23:50)
[2021-08-01 05:42] LABS: Platelet Estimate Normal; Tear Drop Cells Few
[2021-08-01] MEDS: ALBUTEROL/IPRATROPIUM 3 ML NEB RESP TX SCH ×4 (07:10→19:10)
[2021-08-01] MEDS: BUDESONIDE 0.5 MG/2 ML NEB RESP TX SCH ×2 (07:11→19:10)
[2021-08-01] MEDS: CETIRIZINE 1 MG/ML 30 ML/BOTTLE PO SCH (08:33)
[2021-08-01] MEDS: risperiDONE 1 MG TABLET PO SCH ×2 (08:33→20:32)
[2021-08-01] MEDS: SCOPOLAMINE 1.5 MG PATCH TRANSDERM SCH (08:33)
[2021-08-01] MEDS: FERROUS SULFATE 300 MG/5 ML UDCUP PO SCH ×2 (08:33→20:31)
[2021-08-01] MEDS: predniSONE 10 MG TABLET PO SCH (08:34)
[2021-08-01] MEDS: METOPROLOL TARTRATE 25 MG TABLET PO SCH ×4 (08:34→23:50)
[2021-08-01] MEDS: VANCOMYCIN INJ 1,500 MG in SODIUM CHLORIDE 0.9% 500 ML IV SCH (08:35)
[2021-08-01] MEDS: ENOXAPARIN 40 MG/0.4 ML SYRINGE SUBCUT SCH (11:39)
[2021-08-01] MEDS: FAMOTIDINE 20 MG TABLET PO SCH (20:32)
[2021-08-02] MEDS: ALBUTEROL/IPRATROPIUM 3 ML NEB RESP TX SCH ×4 (00:25→19:25)
[2021-08-02 04:49] LABS: ABG Base Excess 5.2 MMOL/L (-2.5-2.5); ABG HCO3 29.1 MMOL/L (20-26); ABG Oxygen Saturation 95.7 % (95-100); ABG PCO2 50.7 MM HG (35-48); ABG PH 7.394 (7.35-7.45); ABG PO2 82.9 MM HG (80-95); ABG TCO2 28.6 MMOL/L (23-27)
[2021-08-02 04:54] LABS: Alanine Aminotransferase 23 U/L (16-61); Albumin 2.2 G/DL (3.4-5.0); Alkaline Phosphatase 122 U/L (45-117); Aspartate Amino Transferase 12 U/L (0-37); Bilirubin,Total < 0.39 MG/DL (0.20-1.00); Blood Urea Nitrogen 36 MG/DL (7-18); Calcium 9.2 MG/DL (8.5-10.1); Carbon Dioxide 30 MMOL/L (21-32); Chloride 104 MMOL/L (98-107); Estimated Glom Filtration Rate 71 ML/MIN; Glucose 124 MG/DL (74-106); Osmolality,Calculated 285.5 MOS/KG (273-304); Potassium 4.2 MMOL/L (3.5-5.1); Sodium 139 MMOL/L (136-145)
[2021-08-02 04:59] LABS: Basophils % 0.4 % (0.0-0.8); Eosinophils # 0.2 10*3/uL (0.0-0.87); Eosinophils % 1.9 % (0.00-10.9); Hematocrit 30.5 VOL% (42.0-52.0); Immature Granulocytes % 3.3 %; Immature Granulocytes Absolute 0.28 #; Lymphocytes # 1.6 10*3/uL (1.4-4.0); Lymphocytes % 18.9 % (21.2-54.2); Mean Corpuscular HGB Conc 29.5 GM/DL (32-36); Mean Corpuscular Volume 70.3 FL (87-102); Monocytes # 0.7 10*3/uL (0.11-0.8); Monocytes % 8.7 % (1.7-12.7); NRBC # 0.05 10*3/uL; Neutrophils % 66.8 % (38.7-73.9); Platelet Count 251 T/CUMM (130-400); Red Blood Count 4.34 MC/CUMM (3.8-5.5); Red Cell Distribution Width 23.5 % (9.3-17.3); White Blood Count 8.5 T/CUMM (4-12)
[2021-08-02] MEDS: INSULIN LISPRO 100 UNIT/ML SUBCUT SCH ×4 (05:10→23:53)
[2021-08-02 05:20] LABS: Hypochromia 1+; Microcytosis 2+
[2021-08-02 05:22] LABS: Ovalocytes Slight; Platelet Estimate Normal
[2021-08-02] MEDS: NIFEdipine 10 MG CAPSULE PO SCH ×4 (05:42→23:53)
[2021-08-02] MEDS: METOPROLOL TARTRATE 25 MG TABLET PO SCH ×4 (05:42→23:53)
[2021-08-02] MEDS: BUDESONIDE 0.5 MG/2 ML NEB RESP TX SCH ×2 (07:26→19:25)
[2021-08-02] MEDS: FERROUS SULFATE 300 MG/5 ML UDCUP PO SCH ×2 (09:25→20:15)
[2021-08-02] MEDS: predniSONE 10 MG TABLET PO SCH (09:26)
[2021-08-02] MEDS: CETIRIZINE 1 MG/ML 30 ML/BOTTLE PO SCH (09:26)
[2021-08-02] MEDS: risperiDONE 1 MG TABLET PO SCH ×2 (09:26→20:15)
[2021-08-02] MEDS: ENOXAPARIN 40 MG/0.4 ML SYRINGE SUBCUT SCH (11:06)
[2021-08-02] MEDS: CEFTAROLINE 600 MG in SODIUM CHLORIDE 0.9% 100 ML IV SCH ×2 (12:00→23:54)
[2021-08-02] MEDS: FAMOTIDINE 20 MG TABLET PO SCH (20:15)
[2021-08-03] MEDS: ALBUTEROL/IPRATROPIUM 3 ML NEB RESP TX SCH ×4 (01:05→19:35)
[2021-08-03] MEDS: INSULIN LISPRO 100 UNIT/ML SUBCUT SCH ×4 (05:36→23:32)
[2021-08-03] MEDS: NIFEdipine 10 MG CAPSULE PO SCH ×4 (05:47→23:33)
[2021-08-03] MEDS: METOPROLOL TARTRATE 25 MG TABLET PO SCH ×4 (05:47→23:33)
[2021-08-03] MEDS: BUDESONIDE 0.5 MG/2 ML NEB RESP TX SCH ×2 (08:15→19:35)
[2021-08-03] MEDS: CETIRIZINE 1 MG/ML 30 ML/BOTTLE PO SCH (09:31)
[2021-08-03] MEDS: predniSONE 10 MG TABLET PO SCH (09:31)
[2021-08-03] MEDS: FLUCONAZOLE 40 MG/ML 35 ML/BOTTLE PO SCH (09:31)
[2021-08-03] MEDS: VANCOMYCIN INJ 1,500 MG in SODIUM CHLORIDE 0.9% 500 ML IV SCH (09:32)
[2021-08-03] MEDS: MUPIROCIN 2% OINT 22 GM TUBE TOP SCH ×2 (09:32→20:04)
[2021-08-03] MEDS: FERROUS SULFATE 300 MG/5 ML UDCUP PO SCH ×2 (09:32→20:04)
[2021-08-03] MEDS: risperiDONE 1 MG TABLET PO SCH ×2 (09:32→20:04)
[2021-08-03] MEDS: ENOXAPARIN 40 MG/0.4 ML SYRINGE SUBCUT SCH (12:14)
[2021-08-03] MEDS: FAMOTIDINE 20 MG TABLET PO SCH (20:04)
[2021-08-04] MEDS: ALBUTEROL/IPRATROPIUM 3 ML NEB RESP TX SCH ×4 (00:07→19:45)
[2021-08-04] MEDS: METOPROLOL TARTRATE 25 MG TABLET PO SCH ×4 (05:47→23:30)
[2021-08-04] MEDS: NIFEdipine 10 MG CAPSULE PO SCH ×4 (05:47→23:30)
[2021-08-04] MEDS: INSULIN LISPRO 100 UNIT/ML SUBCUT SCH ×4 (06:18→23:30)
[2021-08-04] MEDS: BUDESONIDE 0.5 MG/2 ML NEB RESP TX SCH ×2 (06:57→19:45)
[2021-08-04] MEDS: FLUCONAZOLE 40 MG/ML 35 ML/BOTTLE PO SCH (09:07)
[2021-08-04] MEDS: predniSONE 10 MG TABLET PO SCH (09:08)
[2021-08-04] MEDS: MUPIROCIN 2% OINT 22 GM TUBE TOP SCH ×2 (09:08→20:25)
[2021-08-04] MEDS: FERROUS SULFATE 300 MG/5 ML UDCUP PO SCH ×2 (09:08→20:25)
[2021-08-04] MEDS: risperiDONE 1 MG TABLET PO SCH ×2 (09:08→20:25)
[2021-08-04] MEDS: CETIRIZINE 1 MG/ML 30 ML/BOTTLE PO SCH (09:09)
[2021-08-04] MEDS: SCOPOLAMINE 1.5 MG PATCH TRANSDERM SCH (09:09)
[2021-08-04] MEDS: ENOXAPARIN 40 MG/0.4 ML SYRINGE SUBCUT SCH (11:54)
[2021-08-04] MEDS ORDERED: TUBERCULIN SKIN TEST 0.1 ML SYRINGE INTRADERM ONE (13:00)
[2021-08-04] MEDS: SULFAMETHOX/TRIMETHOPRIM 800-160 MG TABLET PO SCH (20:25)
[2021-08-04] MEDS: FAMOTIDINE 20 MG TABLET PO SCH (20:25)
[2021-08-05] MEDS: ALBUTEROL/IPRATROPIUM 3 ML NEB RESP TX SCH ×4 (01:00→18:54)
[2021-08-05 04:59] LABS: Alanine Aminotransferase 20 U/L (16-61); Albumin 2.4 G/DL (3.4-5.0); Alkaline Phosphatase 111 U/L (45-117); Aspartate Amino Transferase 11 U/L (0-37); Bilirubin,Total < 0.39 MG/DL (0.20-1.00); Blood Urea Nitrogen 39 MG/DL (7-18); Calcium 8.7 MG/DL (8.5-10.1); Carbon Dioxide 27 MMOL/L (21-32); Chloride 107 MMOL/L (98-107); Estimated Glom Filtration Rate 56 ML/MIN; Glucose 104 MG/DL (74-106); Osmolality,Calculated 283.7 MOS/KG (273-304); Phosphorous 2.9 MG/DL (2.5-4.9); Potassium 4.3 MMOL/L (3.5-5.1); Sodium 138 MMOL/L (136-145); Total Protein 7.9 G/DL (6.4-8.2)
[2021-08-05] MEDS: INSULIN LISPRO 100 UNIT/ML SUBCUT SCH ×3 (05:02→17:19)
[2021-08-05 05:03] LABS: Basophils % 0.3 % (0.0-0.8); Eosinophils # 0.1 10*3/uL (0.0-0.87); Eosinophils % 1.6 % (0.00-10.9); Hemoglobin 8.8 GM/DL (14.0-18.0); Immature Granulocytes % 2.3 %; Immature Granulocytes Absolute 0.21 #; Lymphocytes % 22.7 % (21.2-54.2); Mean Corpuscular HGB Conc 28.3 GM/DL (32-36); Mean Corpuscular Volume 73.3 FL (87-102); Monocytes # 0.9 10*3/uL (0.11-0.8); Monocytes % 10.3 % (1.7-12.7); NRBC # 0.04 10*3/uL; Neutrophils % 62.8 % (38.7-73.9); Platelet Count 274 T/CUMM (130-400); Red Blood Count 4.24 MC/CUMM (3.8-5.5); Red Cell Distribution Width 23.9 % (9.3-17.3); White Blood Count 8.9 T/CUMM (4-12)
[2021-08-05] MEDS: NIFEdipine 10 MG CAPSULE PO SCH ×3 (05:05→17:19)
[2021-08-05] MEDS: METOPROLOL TARTRATE 25 MG TABLET PO SCH ×3 (05:05→17:19)
[2021-08-05 05:06] LABS: Hematocrit 31.1 VOL% (42.0-52.0)
[2021-08-05 05:11] LABS: Arterial Base Excess iSTAT 1 MMOL/L (-2.5-2.5); Arterial Bicarbonate iSTAT 26.8 MMOL/L (20-26); Arterial O2 Saturation iSTAT 94 % (95-100); Arterial PCO2 iSTAT 46 MM HG (35-48); Arterial PO2 iSTAT 74 MM HG (80-95); Arterial Total CO2 iSTAT 28 MMO/L (23-27); Arterial pH iSTAT 7.372 (7.35-7.45)
[2021-08-05] MEDS: BUDESONIDE 0.5 MG/2 ML NEB RESP TX SCH ×2 (06:58→18:54)
[2021-08-05] MEDS: FERROUS SULFATE 300 MG/5 ML UDCUP PO SCH ×2 (08:23→21:20)
[2021-08-05] MEDS: CETIRIZINE 1 MG/ML 30 ML/BOTTLE PO SCH (08:23)
[2021-08-05] MEDS: risperiDONE 1 MG TABLET PO SCH ×2 (08:24→21:20)
[2021-08-05] MEDS: predniSONE 10 MG TABLET PO SCH (08:24)
[2021-08-05] MEDS: SULFAMETHOX/TRIMETHOPRIM 800-160 MG TABLET PO SCH ×2 (08:24→21:20)
[2021-08-05] MEDS: MUPIROCIN 2% OINT 22 GM TUBE TOP SCH ×2 (08:25→21:20)
[2021-08-05] MEDS: ENOXAPARIN 40 MG/0.4 ML SYRINGE SUBCUT SCH (12:28)
[2021-08-05] MEDS: FAMOTIDINE 20 MG TABLET PO SCH (21:20)
[2021-08-06] MEDS: ALBUTEROL/IPRATROPIUM 3 ML NEB RESP TX SCH ×4 (00:23→21:43)
[2021-08-06] MEDS: INSULIN LISPRO 100 UNIT/ML SUBCUT SCH ×4 (00:33→17:58)
[2021-08-06] MEDS: NIFEdipine 10 MG CAPSULE PO SCH ×4 (00:35→18:09)
[2021-08-06] MEDS: METOPROLOL TARTRATE 25 MG TABLET PO SCH ×4 (00:35→18:09)
[2021-08-06 05:27] LABS: Basophils % 0.4 % (0.0-0.8); Eosinophils # 0.1 10*3/uL (0.0-0.87); Eosinophils % 0.9 % (0.00-10.9); Immature Granulocytes % 3.4 %; Immature Granulocytes Absolute 0.31 #; Lymphocytes # 2.4 10*3/uL (1.4-4.0); Lymphocytes % 26.4 % (21.2-54.2); Mean Corpuscular HGB Conc 28.8 GM/DL (32-36); Mean Corpuscular Volume 72.4 FL (87-102); Monocytes # 0.9 10*3/uL (0.11-0.8); Monocytes % 9.4 % (1.7-12.7); NRBC # 0.04 10*3/uL; Neutrophils % 59.5 % (38.7-73.9); Platelet Count 227 T/CUMM (130-400); Red Blood Count 4.56 MC/CUMM (3.8-5.5); Red Cell Distribution Width 24.7 % (9.3-17.3); White Blood Count 9.1 T/CUMM (4-12)
[2021-08-06 05:43] LABS: Hemoglobin 9.5 GM/DL (14.0-18.0)
[2021-08-06] MEDS: FERROUS SULFATE 300 MG/5 ML UDCUP PO SCH (09:18)
[2021-08-06] MEDS: risperiDONE 1 MG TABLET PO SCH (09:18)
[2021-08-06] MEDS: predniSONE 10 MG TABLET PO SCH (09:18)
[2021-08-06] MEDS: SULFAMETHOX/TRIMETHOPRIM 800-160 MG TABLET PO SCH (09:18)
[2021-08-06] MEDS: CETIRIZINE 1 MG/ML 30 ML/BOTTLE PO SCH (09:19)
[2021-08-06] MEDS: MUPIROCIN 2% OINT 22 GM TUBE TOP SCH (09:19)
[2021-08-06] MEDS: ENOXAPARIN 40 MG/0.4 ML SYRINGE SUBCUT SCH (12:05)
[2021-08-06] MEDS: BUDESONIDE 0.5 MG/2 ML NEB RESP TX SCH ×2 (14:51→21:43)
[2021-08-06] MEDS: ACETAMINOPHEN 325 MG TABLET PO PRN (18:09)
[2021-08-07] MEDS: SULFAMETHOX/TRIMETHOPRIM 800-160 MG TABLET PO SCH ×3 (00:31→22:54)
[2021-08-07] MEDS: FAMOTIDINE 20 MG TABLET PO SCH ×2 (00:31→22:54)
[2021-08-07] MEDS: risperiDONE 1 MG TABLET PO SCH ×3 (00:31→22:54)
[2021-08-07] MEDS: FERROUS SULFATE 300 MG/5 ML UDCUP PO SCH ×3 (00:31→22:53)
[2021-08-07] MEDS: METOPROLOL TARTRATE 25 MG TABLET PO SCH ×5 (00:31→23:02)
[2021-08-07] MEDS: INSULIN LISPRO 100 UNIT/ML SUBCUT SCH ×5 (00:31→22:54)
[2021-08-07] MEDS: NIFEdipine 10 MG CAPSULE PO SCH ×5 (00:31→23:02)
[2021-08-07] MEDS: MUPIROCIN 2% OINT 22 GM TUBE TOP SCH ×3 (00:32→22:55)
[2021-08-07] MEDS: ALBUTEROL/IPRATROPIUM 3 ML NEB RESP TX SCH ×4 (02:23→21:13)
[2021-08-07 05:34] LABS: Calcium 8.9 MG/DL (8.5-10.1)
[2021-08-07 05:53] LABS: Basophils # 0.1 10*3/uL (0.0-0.2); Basophils % 0.6 % (0.0-0.8); Eosinophils # 0.1 10*3/uL (0.0-0.87); Eosinophils % 0.9 % (0.00-10.9); Hematocrit 31.2 VOL% (42.0-52.0); Immature Granulocytes % 2.5 %; Lymphocytes # 1.9 10*3/uL (1.4-4.0); Lymphocytes % 24.2 % (21.2-54.2); Mean Corpuscular HGB Conc 29.5 GM/DL (32-36); Mean Corpuscular Volume 72.7 FL (87-102); Monocytes # 0.8 10*3/uL (0.11-0.8); Monocytes % 9.8 % (1.7-12.7); NRBC # 0.02 10*3/uL; Platelet Count 258 T/CUMM (130-400); Red Blood Count 4.29 MC/CUMM (3.8-5.5); Red Cell Distribution Width 24.6 % (9.3-17.3); White Blood Count 7.9 T/CUMM (4-12)
[2021-08-07 05:54] LABS: Hemoglobin 9.2 GM/DL (14.0-18.0)
[2021-08-07 06:01] LABS: Hypochromia Slight
[2021-08-07 06:02] LABS: Microcytosis 1+; Platelet Estimate Normal
[2021-08-07] MEDS: BUDESONIDE 0.5 MG/2 ML NEB RESP TX SCH ×2 (07:03→21:14)
[2021-08-07] MEDS: SCOPOLAMINE 1.5 MG PATCH TRANSDERM SCH (09:48)
[2021-08-07] MEDS: predniSONE 10 MG TABLET PO SCH (09:48)
[2021-08-07] MEDS: CETIRIZINE 1 MG/ML 30 ML/BOTTLE PO SCH (09:48)
[2021-08-07] MEDS: ENOXAPARIN 40 MG/0.4 ML SYRINGE SUBCUT SCH (12:29)
[2021-08-08] MEDS: ALBUTEROL/IPRATROPIUM 3 ML NEB RESP TX SCH ×4 (01:45→23:23)
[2021-08-08 05:17] LABS: Calcium 8.9 MG/DL (8.5-10.1); Potassium 5.4 MMOL/L (3.5-5.1)
[2021-08-08 05:51] LABS: Basophils % 0.3 % (0.0-0.8); Eosinophils # 0.1 10*3/uL (0.0-0.87); Eosinophils % 0.6 % (0.00-10.9); Hematocrit 32.8 VOL% (42.0-52.0); Hemoglobin 9.5 GM/DL (14.0-18.0); Immature Granulocytes % 2.5 %; Immature Granulocytes Absolute 0.22 #; Lymphocytes # 1.9 10*3/uL (1.4-4.0); Lymphocytes % 22.3 % (21.2-54.2); Mean Corpuscular Volume 73.2 FL (87-102); Monocytes # 0.9 10*3/uL (0.11-0.8); Monocytes % 10.2 % (1.7-12.7); Neutrophils % 64.1 % (38.7-73.9); Red Blood Count 4.48 MC/CUMM (3.8-5.5); White Blood Count 8.7 T/CUMM (4-12)
[2021-08-08 05:52] LABS: Platelet Count 346 T/CUMM (130-400)
[2021-08-08] MEDS: NIFEdipine 10 MG CAPSULE PO SCH ×4 (06:06→23:49)
[2021-08-08] MEDS: METOPROLOL TARTRATE 25 MG TABLET PO SCH ×4 (06:06→23:49)
[2021-08-08 06:18] LABS: Anisocytosis 1+; Eosinophils 2 % (0-10); Hypochromia 1+; Lymphocytes 26 % (20-55); Microcytosis 1+; Ovalocytes Slight; Polychromasia Slight; Total Cells Counted 100
[2021-08-08 06:19] LABS: Platelet Estimate Normal
[2021-08-08] MEDS: BUDESONIDE 0.5 MG/2 ML NEB RESP TX SCH ×2 (07:33→23:23)
[2021-08-08] MEDS: INSULIN LISPRO 100 UNIT/ML SUBCUT SCH ×4 (09:56→23:50)
[2021-08-08] MEDS: MUPIROCIN 2% OINT 22 GM TUBE TOP SCH ×2 (10:14→23:49)
[2021-08-08] MEDS: predniSONE 10 MG TABLET PO SCH (10:14)
[2021-08-08] MEDS: FERROUS SULFATE 300 MG/5 ML UDCUP PO SCH ×2 (10:14→23:49)
[2021-08-08] MEDS: SULFAMETHOX/TRIMETHOPRIM 800-160 MG TABLET PO SCH ×2 (10:14→23:48)
[2021-08-08] MEDS: risperiDONE 1 MG TABLET PO SCH ×2 (10:15→23:49)
[2021-08-08] MEDS: CETIRIZINE 1 MG/ML 30 ML/BOTTLE PO SCH (10:15)
[2021-08-08] MEDS ORDERED: SODIUM POLYSTYRENE SULFATE 15 GM/60 ML BOTTLE PO STA (11:29)
[2021-08-08] MEDS: ENOXAPARIN 40 MG/0.4 ML SYRINGE SUBCUT SCH (11:40)
[2021-08-08] MEDS ORDERED: SODIUM CHLORIDE 0.9% 500 ML IV SCH (13:30)
[2021-08-08] MEDS: ACETAMINOPHEN 325 MG TABLET PO PRN (18:18)
[2021-08-08] MEDS: FAMOTIDINE 20 MG TABLET PO SCH (23:49)
[2021-08-09 06:36] LABS: Alanine Aminotransferase 22 U/L (16-61); Albumin 2.8 G/DL (3.4-5.0); Alkaline Phosphatase 110 U/L (45-117); Aspartate Amino Transferase 13 U/L (0-37); Bilirubin,Total < 0.39 MG/DL (0.20-1.00); Blood Urea Nitrogen 40 MG/DL (7-18); Calcium 9.4 MG/DL (8.5-10.1); Carbon Dioxide 23 MMOL/L (21-32); Chloride 109 MMOL/L (98-107); Estimated Glom Filtration Rate 41 ML/MIN; Glucose 81 MG/DL (74-106); Osmolality,Calculated 281.8 MOS/KG (273-304); Potassium 5.6 MMOL/L (3.5-5.1); Sodium 137 MMOL/L (136-145); Total Protein 8.1 G/DL (6.4-8.2)
[2021-08-09] MEDS: NIFEdipine 10 MG CAPSULE PO SCH ×3 (06:45→17:50)
[2021-08-09] MEDS: METOPROLOL TARTRATE 25 MG TABLET PO SCH ×3 (06:45→17:50)
[2021-08-09 07:00] LABS: Basophils % 0.3 % (0.0-0.8); Eosinophils # 0.1 10*3/uL (0.0-0.87); Eosinophils % 0.8 % (0.00-10.9); Hematocrit 34.2 VOL% (42.0-52.0); Immature Granulocytes % 2.4 %; Immature Granulocytes Absolute 0.19 #; Lymphocytes # 2.3 10*3/uL (1.4-4.0); Lymphocytes % 29.8 % (21.2-54.2); Mean Corpuscular HGB Conc 29.2 GM/DL (32-36); Mean Corpuscular Volume 73.1 FL (87-102); Monocytes # 0.7 10*3/uL (0.11-0.8); Monocytes % 9.3 % (1.7-12.7); Neutrophils % 57.4 % (38.7-73.9); Platelet Count 257 T/CUMM (130-400); Red Blood Count 4.68 MC/CUMM (3.8-5.5); White Blood Count 7.8 T/CUMM (4-12)
[2021-08-09] MEDS: BUDESONIDE 0.5 MG/2 ML NEB RESP TX SCH ×2 (07:15→19:15)
[2021-08-09] MEDS: ALBUTEROL/IPRATROPIUM 3 ML NEB RESP TX SCH ×3 (07:54→19:12)
[2021-08-09] MEDS: FERROUS SULFATE 300 MG/5 ML UDCUP PO SCH ×2 (09:41→21:33)
[2021-08-09] MEDS: SULFAMETHOX/TRIMETHOPRIM 800-160 MG TABLET PO SCH (09:42)
[2021-08-09] MEDS: SODIUM POLYSTYRENE SULFATE 15 GM/60 ML BOTTLE PO STA ×2 (09:42→10:53)
[2021-08-09] MEDS: risperiDONE 1 MG TABLET PO SCH ×2 (09:42→21:51)
[2021-08-09] MEDS: predniSONE 10 MG TABLET PO SCH (09:42)
[2021-08-09] MEDS: CETIRIZINE 1 MG/ML 30 ML/BOTTLE PO SCH (09:43)
[2021-08-09] MEDS: INSULIN LISPRO 100 UNIT/ML SUBCUT SCH ×4 (09:47→21:47)
[2021-08-09] MEDS: SODIUM CHLORIDE 0.9% 1,000 ML IV SCH ×2 (12:09→21:35)
[2021-08-09 15:30] LABS: Calcium 8.9 MG/DL (8.5-10.1); Osmolality,Calculated 274.4 MOS/KG (273-304)
[2021-08-09 15:36] LABS: Potassium 6.6 MMOL/L (3.5-5.1)
[2021-08-09] MEDS ORDERED: SODIUM POLYSTYRENE SULFATE 15 GM/60 ML BOTTLE RECTAL ONE (16:00)
[2021-08-09] MEDS ORDERED: SODIUM POLYSTYRENE SULFATE 15 GM/60 ML BOTTLE PO ONE (16:15)
[2021-08-09] MEDS: MUPIROCIN 2% OINT 22 GM TUBE TOP SCH (16:23)
[2021-08-09] MEDS: ENOXAPARIN 40 MG/0.4 ML SYRINGE SUBCUT SCH (21:33)
[2021-08-09] MEDS: FAMOTIDINE 20 MG TABLET PO SCH (21:34)
[2021-08-10] MEDS: NIFEdipine 10 MG CAPSULE PO SCH ×5 (00:06→23:53)
[2021-08-10] MEDS: METOPROLOL TARTRATE 25 MG TABLET PO SCH ×4 (00:06→21:04)
[2021-08-10] MEDS: ALBUTEROL/IPRATROPIUM 3 ML NEB RESP TX SCH ×5 (00:28→20:16)
[2021-08-10] MEDS: MUPIROCIN 2% OINT 22 GM TUBE TOP SCH ×2 (04:13→08:41)
[2021-08-10 05:41] LABS: Calcium 9.2 MG/DL (8.5-10.1); Osmolality,Calculated 283.5 MOS/KG (273-304); Potassium 4.5 MMOL/L (3.5-5.1)
[2021-08-10 06:00] LABS: Basophils % 0.2 % (0.0-0.8); Eosinophils % 0.5 % (0.00-10.9); Hemoglobin 10.9 GM/DL (14.0-18.0); Immature Granulocytes % 1.9 %; Immature Granulocytes Absolute 0.16 #; Lymphocytes # 1.4 10*3/uL (1.4-4.0); Lymphocytes % 16.6 % (21.2-54.2); Mean Corpuscular HGB Conc 28.9 GM/DL (32-36); Mean Corpuscular Volume 73.5 FL (87-102); Monocytes # 0.8 10*3/uL (0.11-0.8); Monocytes % 9.8 % (1.7-12.7); Platelet Count 356 T/CUMM (130-400); Red Blood Count 5.13 MC/CUMM (3.8-5.5); Red Cell Distribution Width 26.5 % (9.3-17.3); White Blood Count 8.6 T/CUMM (4-12)
[2021-08-10 06:02] LABS: Hematocrit 37.7 VOL% (42.0-52.0)
[2021-08-10] MEDS: BUDESONIDE 0.5 MG/2 ML NEB RESP TX SCH (07:24)
[2021-08-10] MEDS: SODIUM CHLORIDE 0.9% 1,000 ML IV SCH ×2 (07:40→15:16)
[2021-08-10] MEDS: SCOPOLAMINE 1.5 MG PATCH TRANSDERM SCH (08:40)
[2021-08-10] MEDS: risperiDONE 1 MG TABLET PO SCH ×2 (08:40→20:53)
[2021-08-10] MEDS: predniSONE 10 MG TABLET PO SCH (08:40)
[2021-08-10] MEDS: FERROUS SULFATE 300 MG/5 ML UDCUP PO SCH ×2 (08:40→20:52)
[2021-08-10] MEDS: INSULIN LISPRO 100 UNIT/ML SUBCUT SCH ×4 (08:40→20:54)
[2021-08-10] MEDS: CETIRIZINE 1 MG/ML 30 ML/BOTTLE PO SCH (08:40)
[2021-08-10] MEDS: ONDANSETRON 4 MG/2 ML VIAL IV PRN (20:52)
[2021-08-10] MEDS: ENOXAPARIN 40 MG/0.4 ML SYRINGE SUBCUT SCH (20:53)
[2021-08-10] MEDS: FAMOTIDINE 20 MG TABLET PO SCH (20:53)
[2021-08-11] MEDS: ALBUTEROL/IPRATROPIUM 3 ML NEB RESP TX SCH ×3 (01:10→19:53)
[2021-08-11] MEDS: SODIUM CHLORIDE 0.9% 1,000 ML IV SCH (05:27)
[2021-08-11] MEDS: NIFEdipine 10 MG CAPSULE PO SCH ×3 (05:27→18:13)
[2021-08-11] MEDS: METOPROLOL TARTRATE 25 MG TABLET PO SCH ×4 (05:27→20:28)
[2021-08-11 07:20] LABS: Calcium 8.9 MG/DL (8.5-10.1); Osmolality,Calculated 283.4 MOS/KG (273-304); Potassium 4.5 MMOL/L (3.5-5.1)
[2021-08-11] MEDS: INSULIN LISPRO 100 UNIT/ML SUBCUT SCH ×4 (07:50→20:26)
[2021-08-11] MEDS: predniSONE 5 MG TABLET PO SCH (09:26)
[2021-08-11] MEDS: risperiDONE 1 MG TABLET PO SCH ×2 (09:26→20:28)
[2021-08-11] MEDS: FERROUS SULFATE 300 MG/5 ML UDCUP PO SCH ×2 (09:26→20:28)
[2021-08-11] MEDS: FAMOTIDINE 20 MG TABLET PO SCH (20:28)
[2021-08-11] MEDS: ENOXAPARIN 40 MG/0.4 ML SYRINGE SUBCUT SCH (20:30)
[2021-08-12] MEDS: ALBUTEROL/IPRATROPIUM 3 ML NEB RESP TX SCH (00:06)
[2021-08-12] MEDS: NIFEdipine 10 MG CAPSULE PO SCH ×5 (00:17→23:59)
[2021-08-12] MEDS: METOPROLOL TARTRATE 25 MG TABLET PO SCH ×5 (03:11→23:59)
[2021-08-12] MEDS: INSULIN LISPRO 100 UNIT/ML SUBCUT SCH ×4 (09:30→21:51)
[2021-08-12] MEDS: predniSONE 5 MG TABLET PO SCH (09:46)
[2021-08-12] MEDS: risperiDONE 1 MG TABLET PO SCH ×2 (09:46→21:35)
[2021-08-12] MEDS: FERROUS SULFATE 300 MG/5 ML UDCUP PO SCH ×2 (09:47→21:35)
[2021-08-12] MEDS: ACETAMINOPHEN 325 MG TABLET PO PRN (09:47)
[2021-08-12] MEDS: SIMETHICONE CHEW 125 MG TABLET PO PRN (15:02)
[2021-08-12] MEDS: ONDANSETRON 4 MG/2 ML VIAL IV PRN (16:26)
[2021-08-12] MEDS: PANTOPRAZOLE 40 MG TABLET PO SCH (18:27)
[2021-08-12] MEDS: ENOXAPARIN 40 MG/0.4 ML SYRINGE SUBCUT SCH (21:36)
[2021-08-13] MEDS: NIFEdipine 10 MG CAPSULE PO SCH ×4 (05:16→23:41)
[2021-08-13] MEDS: METOPROLOL TARTRATE 25 MG TABLET PO SCH ×4 (05:17→23:41)
[2021-08-13 05:36] LABS: Calcium 8.9 MG/DL (8.5-10.1); Osmolality,Calculated 281.5 MOS/KG (273-304); Potassium 4.1 MMOL/L (3.5-5.1)
[2021-08-13 05:51] LABS: Platelet Estimate Adequate
[2021-08-13 05:52] LABS: Hypochromia 1+; Microcytosis 1+; Polychromasia 1+; Stomatocytes 1+
[2021-08-13 06:02] LABS: Basophils % 0.2 % (0.0-0.8); Eosinophils # 0.2 10*3/uL (0.0-0.87); Eosinophils % 1.8 % (0.00-10.9); Immature Granulocytes % 0.9 %; Immature Granulocytes Absolute 0.08 #; Lymphocytes # 1.8 10*3/uL (1.4-4.0); Lymphocytes % 19.9 % (21.2-54.2); Mean Corpuscular HGB Conc 28.8 GM/DL (32-36); Mean Corpuscular Volume 74.8 FL (87-102); Monocytes % 11.5 % (1.7-12.7); Neutrophils % 65.7 % (38.7-73.9); Platelet Count 216 T/CUMM (130-400); Red Blood Count 4.88 MC/CUMM (3.8-5.5); Red Cell Distribution Width 26.6 % (9.3-17.3); White Blood Count 8.9 T/CUMM (4-12)
[2021-08-13 06:04] LABS: Hematocrit 36.5 VOL% (42.0-52.0); Hemoglobin 10.5 GM/DL (14.0-18.0)
[2021-08-13] MEDS: PANTOPRAZOLE 40 MG TABLET PO SCH (06:46)
[2021-08-13] MEDS: ALBUTEROL/IPRATROPIUM 3 ML NEB RESP TX SCH ×3 (07:10→18:56)
[2021-08-13] MEDS ORDERED: predniSONE 5 MG TABLET PO SCH (09:00)
[2021-08-13] MEDS: FERROUS SULFATE 300 MG/5 ML UDCUP PO SCH ×2 (09:27→21:13)
[2021-08-13] MEDS: risperiDONE 1 MG TABLET PO SCH ×2 (09:27→21:13)
[2021-08-13] MEDS: predniSONE 5 MG TABLET PO SCH (09:27)
[2021-08-13] MEDS: SCOPOLAMINE 1.5 MG PATCH TRANSDERM SCH (09:28)
[2021-08-13] MEDS: ONDANSETRON 4 MG/2 ML VIAL IV PRN (09:28)
[2021-08-13] MEDS: INSULIN LISPRO 100 UNIT/ML SUBCUT SCH ×4 (10:08→21:13)
[2021-08-13] MEDS: ENOXAPARIN 40 MG/0.4 ML SYRINGE SUBCUT SCH (21:13)
[2021-08-14] MEDS: ALBUTEROL/IPRATROPIUM 3 ML NEB RESP TX SCH ×3 (00:01→15:39)
[2021-08-14] MEDS: NIFEdipine 10 MG CAPSULE PO SCH ×2 (05:40→13:33)
[2021-08-14] MEDS: PANTOPRAZOLE 40 MG TABLET PO SCH (05:40)
[2021-08-14] MEDS: METOPROLOL TARTRATE 25 MG TABLET PO SCH ×2 (05:40→13:33)
[2021-08-14] MEDS: risperiDONE 1 MG TABLET PO SCH ×2 (08:48→22:01)
[2021-08-14] MEDS: predniSONE 5 MG TABLET PO SCH (08:48)
[2021-08-14] MEDS: FERROUS SULFATE 300 MG/5 ML UDCUP PO SCH ×2 (08:48→22:01)
[2021-08-14] MEDS: INSULIN LISPRO 100 UNIT/ML SUBCUT SCH ×4 (10:40→22:02)
[2021-08-14] MEDS: ENOXAPARIN 40 MG/0.4 ML SYRINGE SUBCUT SCH (22:01)
[2021-08-14] MEDS: METOPROLOL TARTRATE 50 MG TABLET PO SCH (22:01)
[2021-08-15] MEDS: PANTOPRAZOLE 40 MG TABLET PO SCH (05:40)
[2021-08-15 09:46] LABS: Alanine Aminotransferase 56 U/L (16-61); Albumin 2.4 G/DL (3.4-5.0); Alkaline Phosphatase 111 U/L (45-117); Aspartate Amino Transferase 13 U/L (0-37); Bilirubin,Total < 0.39 MG/DL (0.20-1.00); Blood Urea Nitrogen 24 MG/DL (7-18); Carbon Dioxide 24 MMOL/L (21-32); Chloride 112 MMOL/L (98-107); Estimated Glom Filtration Rate 101 ML/MIN; Glucose 104 MG/DL (74-106); Osmolality,Calculated 282.4 MOS/KG (273-304); Sodium 140 MMOL/L (136-145); Total Protein 7.1 G/DL (6.4-8.2)
[2021-08-15 09:47] LABS: Basophils % 0.3 % (0.0-0.8); Eosinophils # 0.1 10*3/uL (0.0-0.87); Eosinophils % 1.9 % (0.00-10.9); Hematocrit 34.3 VOL% (42.0-52.0); Hemoglobin 9.8 GM/DL (14.0-18.0); Immature Granulocytes % 1.3 %; Immature Granulocytes Absolute 0.09 #; Lymphocytes # 1.8 10*3/uL (1.4-4.0); Lymphocytes % 26.9 % (21.2-54.2); Mean Corpuscular HGB Conc 28.6 GM/DL (32-36); Mean Corpuscular Volume 75.9 FL (87-102); Monocytes # 0.6 10*3/uL (0.11-0.8); Monocytes % 8.6 % (1.7-12.7); NRBC # 0.02 10*3/uL; Platelet Count 218 T/CUMM (130-400); Red Blood Count 4.52 MC/CUMM (3.8-5.5); Red Cell Distribution Width 27.1 % (9.3-17.3); White Blood Count 6.7 T/CUMM (4-12)
[2021-08-15] MEDS: predniSONE 5 MG TABLET PO SCH (10:54)
[2021-08-15] MEDS: METOPROLOL TARTRATE 50 MG TABLET PO SCH ×2 (10:54→22:16)
[2021-08-15] MEDS: risperiDONE 1 MG TABLET PO SCH ×2 (10:54→22:11)
[2021-08-15] MEDS: FERROUS SULFATE 300 MG/5 ML UDCUP PO SCH ×2 (10:54→22:12)
[2021-08-15] MEDS: INSULIN LISPRO 100 UNIT/ML SUBCUT SCH ×4 (11:13→22:12)
[2021-08-15] MEDS ORDERED: MAGNESIUM SULF RIDER 4 GM/100 ML PREMIX IV ONE (12:46)
[2021-08-15] MEDS: INSULIN GLARGINE 100 UNIT/ML SUBCUT SCH (22:12)
[2021-08-15] MEDS: ENOXAPARIN 40 MG/0.4 ML SYRINGE SUBCUT SCH (22:13)
[2021-08-16] MEDS: PANTOPRAZOLE 40 MG TABLET PO SCH (06:09)
[2021-08-16 06:36] LABS: Alanine Aminotransferase 44 U/L (16-61); Albumin 2.4 G/DL (3.4-5.0); Alkaline Phosphatase 113 U/L (45-117); Aspartate Amino Transferase 10 U/L (0-37); Bilirubin,Total < 0.39 MG/DL (0.20-1.00); Blood Urea Nitrogen 22 MG/DL (7-18); Carbon Dioxide 24 MMOL/L (21-32); Chloride 111 MMOL/L (98-107); Estimated Glom Filtration Rate 75 ML/MIN; Glucose 104 MG/DL (74-106); Osmolality,Calculated 281.4 MOS/KG (273-304); Potassium 4.6 MMOL/L (3.5-5.1); Sodium 140 MMOL/L (136-145); Total Protein 7.1 G/DL (6.4-8.2)
[2021-08-16 07:03] LABS: Basophils % 0.4 % (0.0-0.8); Eosinophils # 0.1 10*3/uL (0.0-0.87); Eosinophils % 1.8 % (0.00-10.9); Immature Granulocytes Absolute 0.07 #; Lymphocytes # 1.7 10*3/uL (1.4-4.0); Lymphocytes % 25.3 % (21.2-54.2); Mean Corpuscular HGB Conc 28.9 GM/DL (32-36); Mean Corpuscular Volume 75.1 FL (87-102); Monocytes # 0.6 10*3/uL (0.11-0.8); Monocytes % 9.2 % (1.7-12.7); Neutrophils % 62.3 % (38.7-73.9); Platelet Count 191 T/CUMM (130-400); Red Blood Count 4.61 MC/CUMM (3.8-5.5); Red Cell Distribution Width 27.3 % (9.3-17.3); White Blood Count 6.7 T/CUMM (4-12)
[2021-08-16 07:05] LABS: Hematocrit 34.6 VOL% (42.0-52.0)
[2021-08-16 07:31] LABS: Platelet Estimate Normal
[2021-08-16 07:32] LABS: Anisocytosis 2+; Burr Cells Few; Hypochromia Slight; Poikilocytosis 1+; Tear Drop Cells Few
[2021-08-16 07:51] LABS: Ovalocytes Few
[2021-08-16 07:52] LABS: Macrocytosis 1+
[2021-08-16] MEDS: INSULIN LISPRO 100 UNIT/ML SUBCUT SCH ×4 (08:19→21:35)
[2021-08-16] MEDS: risperiDONE 1 MG TABLET PO SCH ×2 (08:20→20:10)
[2021-08-16] MEDS: SCOPOLAMINE 1.5 MG PATCH TRANSDERM SCH (08:20)
[2021-08-16] MEDS: FERROUS SULFATE 300 MG/5 ML UDCUP PO SCH ×2 (08:20→20:10)
[2021-08-16] MEDS: predniSONE 5 MG TABLET PO SCH (08:20)
[2021-08-16] MEDS: METOPROLOL TARTRATE 50 MG TABLET PO SCH ×2 (08:20→20:10)
[2021-08-16 09:38] LABS: % Iron Saturation 16.3 % (18-50)
[2021-08-16] MEDS: ACETAMINOPHEN 325 MG TABLET PO PRN (15:50)
[2021-08-16] MEDS: ENOXAPARIN 40 MG/0.4 ML SYRINGE SUBCUT SCH (20:10)
[2021-08-16] MEDS: INSULIN GLARGINE 100 UNIT/ML SUBCUT SCH (21:35)
[2021-08-17] MEDS: PANTOPRAZOLE 40 MG TABLET PO SCH (06:00)
[2021-08-17 07:15] LABS: Basophils % 0.4 % (0.0-0.8); Eosinophils # 0.1 10*3/uL (0.0-0.87); Eosinophils % 1.6 % (0.00-10.9); Hematocrit 35.5 VOL% (42.0-52.0); Hemoglobin 10.3 GM/DL (14.0-18.0); Immature Granulocytes % 0.7 %; Immature Granulocytes Absolute 0.05 #; Lymphocytes # 1.8 10*3/uL (1.4-4.0); Lymphocytes % 26.3 % (21.2-54.2); Mean Corpuscular Volume 75.4 FL (87-102); Monocytes # 0.6 10*3/uL (0.11-0.8); Monocytes % 8.7 % (1.7-12.7); Neutrophils % 62.3 % (38.7-73.9); Platelet Count 183 T/CUMM (130-400); Red Blood Count 4.71 MC/CUMM (3.8-5.5); Red Cell Distribution Width 27.2 % (9.3-17.3); White Blood Count 6.7 T/CUMM (4-12)
[2021-08-17 07:19] LABS: Hypochromia 1+
[2021-08-17 07:20] LABS: Microcytosis 2+; Ovalocytes Few; Platelet Estimate Adequate; Polychromasia Slight
[2021-08-17 07:21] LABS: Target Cells Slight
[2021-08-17 07:30] LABS: Calcium 8.9 MG/DL (8.5-10.1); Osmolality,Calculated 281.5 MOS/KG (273-304)
[2021-08-17] MEDS: INSULIN LISPRO 100 UNIT/ML SUBCUT SCH ×3 (07:35→17:15)
[2021-08-17] MEDS: FERROUS SULFATE 300 MG/5 ML UDCUP PO SCH ×2 (08:10→20:05)
[2021-08-17] MEDS: METOPROLOL TARTRATE 50 MG TABLET PO SCH ×2 (08:11→20:05)
[2021-08-17] MEDS: predniSONE 5 MG TABLET PO SCH (08:11)
[2021-08-17] MEDS: risperiDONE 1 MG TABLET PO SCH ×2 (08:11→20:05)
[2021-08-17] MEDS: ENOXAPARIN 40 MG/0.4 ML SYRINGE SUBCUT SCH (20:05)
[2021-08-17] MEDS: INSULIN GLARGINE 100 UNIT/ML SUBCUT SCH (21:05)
[2021-08-18] MEDS: PANTOPRAZOLE 40 MG TABLET PO SCH (05:55)
[2021-08-18 06:17] LABS: Calcium 8.7 MG/DL (8.5-10.1); Osmolality,Calculated 289.1 MOS/KG (273-304); Potassium 4.8 MMOL/L (3.5-5.1)
[2021-08-18 06:28] LABS: Basophils % 0.3 % (0.0-0.8); Eosinophils # 0.1 10*3/uL (0.0-0.87); Eosinophils % 1.3 % (0.00-10.9); Hemoglobin 10.4 GM/DL (14.0-18.0); Immature Granulocytes % 1.4 %; Lymphocytes # 1.8 10*3/uL (1.4-4.0); Lymphocytes % 25.9 % (21.2-54.2); Mean Corpuscular HGB Conc 29.1 GM/DL (32-36); Monocytes # 0.7 10*3/uL (0.11-0.8); Monocytes % 10.5 % (1.7-12.7); Neutrophils % 60.6 % (38.7-73.9); Platelet Count 173 T/CUMM (130-400); Red Blood Count 4.71 MC/CUMM (3.8-5.5); Red Cell Distribution Width 26.9 % (9.3-17.3); White Blood Count 7.1 T/CUMM (4-12)
[2021-08-18 06:29] LABS: Hematocrit 35.8 VOL% (42.0-52.0)
[2021-08-18 06:38] LABS: Hypochromia 1+
[2021-08-18 06:39] LABS: Microcytosis 2+; Ovalocytes Few; Platelet Estimate Adequate; Target Cells Slight
[2021-08-18] MEDS ORDERED: MAGNESIUM SULF RIDER 2 GM/50 ML PREMIX IV ONE (09:00)
[2021-08-18] MEDS: INSULIN LISPRO 100 UNIT/ML SUBCUT SCH ×2 (09:26→17:05)
[2021-08-18] MEDS: FERROUS SULFATE 300 MG/5 ML UDCUP PO SCH ×2 (09:32→21:49)
[2021-08-18] MEDS: risperiDONE 1 MG TABLET PO SCH ×2 (09:33→21:50)
[2021-08-18] MEDS: METOPROLOL TARTRATE 50 MG TABLET PO SCH ×2 (09:33→21:50)
[2021-08-18] MEDS: ENOXAPARIN 40 MG/0.4 ML SYRINGE SUBCUT SCH (21:49)
[2021-08-18] MEDS: INSULIN GLARGINE 100 UNIT/ML SUBCUT SCH (21:50)
[2021-08-19] MEDS: PANTOPRAZOLE 40 MG TABLET PO SCH (06:04)
[2021-08-19] MEDS: FERROUS SULFATE 300 MG/5 ML UDCUP PO SCH ×2 (09:14→22:49)
[2021-08-19] MEDS: SCOPOLAMINE 1.5 MG PATCH TRANSDERM SCH (09:14)
[2021-08-19] MEDS: METOPROLOL TARTRATE 50 MG TABLET PO SCH ×2 (09:14→22:54)
[2021-08-19] MEDS: risperiDONE 1 MG TABLET PO SCH ×2 (09:14→22:50)
[2021-08-19] MEDS: INSULIN LISPRO 100 UNIT/ML SUBCUT SCH ×2 (09:15→17:51)
[2021-08-19] MEDS: ENOXAPARIN 40 MG/0.4 ML SYRINGE SUBCUT SCH (22:49)
[2021-08-19] MEDS: INSULIN GLARGINE 100 UNIT/ML SUBCUT SCH (22:50)
[2021-08-20] MEDS: PANTOPRAZOLE 40 MG TABLET PO SCH (07:33)
[2021-08-20] MEDS: FERROUS SULFATE 300 MG/5 ML UDCUP PO SCH ×2 (09:30→22:19)
[2021-08-20] MEDS: METOPROLOL TARTRATE 50 MG TABLET PO SCH ×2 (09:30→22:20)
[2021-08-20] MEDS: risperiDONE 1 MG TABLET PO SCH ×2 (09:30→22:19)
[2021-08-20] MEDS: INSULIN LISPRO 100 UNIT/ML SUBCUT SCH ×2 (09:31→17:31)
[2021-08-20] MEDS: ENOXAPARIN 40 MG/0.4 ML SYRINGE SUBCUT SCH (22:19)
[2021-08-20] MEDS: INSULIN GLARGINE 100 UNIT/ML SUBCUT SCH (23:06)
[2021-08-21] MEDS: PANTOPRAZOLE 40 MG TABLET PO SCH (06:43)
[2021-08-21] MEDS: INSULIN LISPRO 100 UNIT/ML SUBCUT SCH ×2 (08:09→16:35)
[2021-08-21] MEDS ORDERED: MAGNESIUM SULF RIDER 4 GM/100 ML PREMIX IV PRN (08:16)
[2021-08-21] MEDS: METOPROLOL TARTRATE 50 MG TABLET PO SCH ×2 (08:34→21:22)
[2021-08-21] MEDS: FERROUS SULFATE 300 MG/5 ML UDCUP PO SCH ×2 (08:34→21:25)
[2021-08-21] MEDS: risperiDONE 1 MG TABLET PO SCH ×2 (08:34→21:22)
[2021-08-21 09:39] LABS: Osmolality,Calculated 280.7 MOS/KG (273-304); Potassium 3.8 MMOL/L (3.5-5.1)
[2021-08-21] MEDS: MAGNESIUM SULF RIDER 2 GM/50 ML PREMIX IV PRN (11:26)
[2021-08-21] MEDS: ENOXAPARIN 40 MG/0.4 ML SYRINGE SUBCUT SCH (21:22)
[2021-08-21] MEDS: INSULIN GLARGINE 100 UNIT/ML SUBCUT SCH (21:22)
[2021-08-22] MEDS: PANTOPRAZOLE 40 MG TABLET PO SCH (05:39)
[2021-08-22 07:23] LABS: Calcium 8.7 MG/DL (8.5-10.1); Osmolality,Calculated 281.5 MOS/KG (273-304); Potassium 4.1 MMOL/L (3.5-5.1)
[2021-08-22] MEDS: risperiDONE 1 MG TABLET PO SCH ×2 (08:37→21:16)
[2021-08-22] MEDS: SCOPOLAMINE 1.5 MG PATCH TRANSDERM SCH (08:38)
[2021-08-22] MEDS: METOPROLOL TARTRATE 50 MG TABLET PO SCH ×2 (08:38→21:16)
[2021-08-22] MEDS: INSULIN LISPRO 100 UNIT/ML SUBCUT SCH ×2 (08:40→16:17)
[2021-08-22] MEDS: FERROUS SULFATE 300 MG/5 ML UDCUP PO SCH ×2 (08:42→21:14)
[2021-08-22] MEDS: INSULIN GLARGINE 100 UNIT/ML SUBCUT SCH (21:15)
[2021-08-22] MEDS: ENOXAPARIN 40 MG/0.4 ML SYRINGE SUBCUT SCH (21:16)
[2021-08-23 06:24] LABS: Calcium 8.7 MG/DL (8.5-10.1); Osmolality,Calculated 283.4 MOS/KG (273-304); Potassium 4.1 MMOL/L (3.5-5.1)
[2021-08-23] MEDS: PANTOPRAZOLE 40 MG TABLET PO SCH (06:32)
[2021-08-23 06:58] LABS: Basophils % 0.2 % (0.0-0.8); Eosinophils # 0.1 10*3/uL (0.0-0.87); Eosinophils % 1.4 % (0.00-10.9); Hematocrit 33.4 VOL% (42.0-52.0); Hemoglobin 9.8 GM/DL (14.0-18.0); Immature Granulocytes % 0.8 %; Immature Granulocytes Absolute 0.05 #; Lymphocytes # 1.9 10*3/uL (1.4-4.0); Lymphocytes % 30.4 % (21.2-54.2); Mean Corpuscular HGB Conc 29.3 GM/DL (32-36); Mean Corpuscular Volume 76.1 FL (87-102); Monocytes % 15.1 % (1.7-12.7); Neutrophils % 52.1 % (38.7-73.9); Platelet Count 192 T/CUMM (130-400); Red Blood Count 4.39 MC/CUMM (3.8-5.5); Red Cell Distribution Width 24.9 % (9.3-17.3); White Blood Count 6.3 T/CUMM (4-12)
[2021-08-23 07:02] LABS: Hypochromia 1+; Microcytosis 2+; Ovalocytes Few; Platelet Estimate Adequate
[2021-08-23] MEDS: INSULIN LISPRO 100 UNIT/ML SUBCUT SCH ×2 (08:26→16:01)
[2021-08-23] MEDS: risperiDONE 1 MG TABLET PO SCH ×2 (09:03→21:38)
[2021-08-23] MEDS: METOPROLOL TARTRATE 50 MG TABLET PO SCH ×2 (09:04→21:38)
[2021-08-23] MEDS: FERROUS SULFATE 300 MG/5 ML UDCUP PO SCH ×2 (09:04→21:32)
[2021-08-23] MEDS: MAGNESIUM SULF RIDER 2 GM/50 ML PREMIX IV PRN (14:08)
[2021-08-23] MEDS: ENOXAPARIN 40 MG/0.4 ML SYRINGE SUBCUT SCH (21:41)
[2021-08-23] MEDS: INSULIN GLARGINE 100 UNIT/ML SUBCUT SCH (21:42)
[2021-08-24 05:40] LABS: Basophils % 0.3 % (0.0-0.8); Eosinophils # 0.1 10*3/uL (0.0-0.87); Eosinophils % 1.9 % (0.00-10.9); Hematocrit 34.8 VOL% (42.0-52.0); Hemoglobin 10.3 GM/DL (14.0-18.0); Immature Granulocytes % 1.1 %; Immature Granulocytes Absolute 0.08 #; Lymphocytes % 26.5 % (21.2-54.2); Mean Corpuscular HGB Conc 29.6 GM/DL (32-36); Monocytes # 0.9 10*3/uL (0.11-0.8); Monocytes % 11.8 % (1.7-12.7); Neutrophils % 58.4 % (38.7-73.9); Platelet Count 174 T/CUMM (130-400); Red Blood Count 4.64 MC/CUMM (3.8-5.5); Red Cell Distribution Width 24.7 % (9.3-17.3); White Blood Count 7.4 T/CUMM (4-12)
[2021-08-24 05:54] LABS: Calcium 9.3 MG/DL (8.5-10.1); Osmolality,Calculated 275.8 MOS/KG (273-304); Potassium 4.2 MMOL/L (3.5-5.1)
[2021-08-24] MEDS: PANTOPRAZOLE 40 MG TABLET PO SCH (05:58)
[2021-08-24] MEDS: INSULIN LISPRO 100 UNIT/ML SUBCUT SCH ×2 (08:24→17:07)
[2021-08-24] MEDS: FERROUS SULFATE 300 MG/5 ML UDCUP PO SCH ×2 (10:29→22:06)
[2021-08-24] MEDS: METOPROLOL TARTRATE 50 MG TABLET PO SCH ×2 (10:29→22:06)
[2021-08-24] MEDS: risperiDONE 1 MG TABLET PO SCH ×2 (10:29→22:06)
[2021-08-24] MEDS: INSULIN GLARGINE 100 UNIT/ML SUBCUT SCH (22:06)
[2021-08-24] MEDS: ENOXAPARIN 40 MG/0.4 ML SYRINGE SUBCUT SCH (22:06)
[2021-08-25 05:35] LABS: Calcium 9.3 MG/DL (8.5-10.1); Osmolality,Calculated 279.7 MOS/KG (273-304); Potassium 4.6 MMOL/L (3.5-5.1)
[2021-08-25 05:54] LABS: Basophils % 0.2 % (0.0-0.8); Eosinophils # 0.1 10*3/uL (0.0-0.87); Hematocrit 35.9 VOL% (42.0-52.0); Hemoglobin 10.3 GM/DL (14.0-18.0); Immature Granulocytes % 0.8 %; Immature Granulocytes Absolute 0.05 #; Lymphocytes # 1.9 10*3/uL (1.4-4.0); Lymphocytes % 29.6 % (21.2-54.2); Mean Corpuscular HGB Conc 28.7 GM/DL (32-36); Mean Corpuscular Volume 76.4 FL (87-102); Monocytes # 0.7 10*3/uL (0.11-0.8); Monocytes % 10.6 % (1.7-12.7); Neutrophils % 56.8 % (38.7-73.9); Platelet Count 201 T/CUMM (130-400); Red Cell Distribution Width 24.3 % (9.3-17.3); White Blood Count 6.5 T/CUMM (4-12)
[2021-08-25] MEDS: PANTOPRAZOLE 40 MG TABLET PO SCH (05:59)
[2021-08-25 06:06] LABS: Hypochromia 1+
[2021-08-25 06:07] LABS: Microcytosis 2+; Ovalocytes Few
[2021-08-25 06:08] LABS: Platelet Estimate Normal; Polychromasia Slight
[2021-08-25] MEDS: INSULIN LISPRO 100 UNIT/ML SUBCUT SCH ×2 (08:13→17:02)
[2021-08-25] MEDS: risperiDONE 1 MG TABLET PO SCH ×2 (09:45→20:51)
[2021-08-25] MEDS: METOPROLOL TARTRATE 50 MG TABLET PO SCH ×2 (09:45→20:51)
[2021-08-25] MEDS: FERROUS SULFATE 300 MG/5 ML UDCUP PO SCH ×2 (09:46→20:51)
[2021-08-25] MEDS: SCOPOLAMINE 1.5 MG PATCH TRANSDERM SCH (09:46)
[2021-08-25] MEDS: ENOXAPARIN 40 MG/0.4 ML SYRINGE SUBCUT SCH (20:50)
[2021-08-25] MEDS: INSULIN GLARGINE 100 UNIT/ML SUBCUT SCH (20:50)
[2021-08-25] MEDS: guaiFENesin/DM ER 600-30 MG TABLET PO PRN (20:51)
[2021-08-26] MEDS: PANTOPRAZOLE 40 MG TABLET PO SCH (05:53)
[2021-08-26 06:34] LABS: Calcium 9.2 MG/DL (8.5-10.1); Osmolality,Calculated 279.7 MOS/KG (273-304); Potassium 4.3 MMOL/L (3.5-5.1)
[2021-08-26 06:53] LABS: Basophils % 0.2 % (0.0-0.8); Eosinophils # 0.1 10*3/uL (0.0-0.87); Eosinophils % 1.9 % (0.00-10.9); Hematocrit 33.9 VOL% (42.0-52.0); Immature Granulocytes Absolute 0.06 #; Lymphocytes # 1.9 10*3/uL (1.4-4.0); Lymphocytes % 31.3 % (21.2-54.2); Mean Corpuscular HGB Conc 29.8 GM/DL (32-36); Mean Corpuscular Volume 74.8 FL (87-102); Monocytes # 0.6 10*3/uL (0.11-0.8); Neutrophils % 55.6 % (38.7-73.9); Platelet Count 194 T/CUMM (130-400); Red Blood Count 4.53 MC/CUMM (3.8-5.5); White Blood Count 6.2 T/CUMM (4-12)
[2021-08-26 06:54] LABS: Hemoglobin 10.1 GM/DL (14.0-18.0)
[2021-08-26 07:04] LABS: Hypochromia 1+; Microcytosis 2+; Ovalocytes Slight; Platelet Estimate Adequate
[2021-08-26] MEDS: INSULIN LISPRO 100 UNIT/ML SUBCUT SCH ×2 (08:16→16:16)
[2021-08-26] MEDS: risperiDONE 1 MG TABLET PO SCH ×2 (09:12→21:00)
[2021-08-26] MEDS: METOPROLOL TARTRATE 50 MG TABLET PO SCH ×2 (09:12→21:00)
[2021-08-26] MEDS: FERROUS SULFATE 300 MG/5 ML UDCUP PO SCH (10:25)
[2021-08-26] MEDS: ENOXAPARIN 40 MG/0.4 ML SYRINGE SUBCUT SCH (21:00)
[2021-08-26] MEDS: INSULIN GLARGINE 100 UNIT/ML SUBCUT SCH (21:30)
[2021-08-27] MEDS: FERROUS SULFATE 300 MG/5 ML UDCUP PO SCH ×3 (00:04→20:45)
[2021-08-27] MEDS: PANTOPRAZOLE 40 MG TABLET PO SCH (06:15)
[2021-08-27] MEDS: METOPROLOL TARTRATE 50 MG TABLET PO SCH ×2 (09:33→20:45)
[2021-08-27] MEDS: risperiDONE 1 MG TABLET PO SCH ×2 (09:33→20:45)
[2021-08-27] MEDS: INSULIN LISPRO 100 UNIT/ML SUBCUT SCH ×2 (09:37→18:48)
[2021-08-27] MEDS: ENOXAPARIN 40 MG/0.4 ML SYRINGE SUBCUT SCH (20:45)
[2021-08-27] MEDS: INSULIN GLARGINE 100 UNIT/ML SUBCUT SCH (21:10)
[2021-08-28] MEDS: PANTOPRAZOLE 40 MG TABLET PO SCH (06:05)
[2021-08-28 06:46] LABS: Osmolality,Calculated 285.3 MOS/KG (273-304); Potassium 4.3 MMOL/L (3.5-5.1)
[2021-08-28 06:54] LABS: Basophils % 0.5 % (0.0-0.8); Eosinophils # 0.1 10*3/uL (0.0-0.87); Eosinophils % 2.1 % (0.00-10.9); Immature Granulocytes % 0.8 %; Immature Granulocytes Absolute 0.05 #; Lymphocytes % 32.3 % (21.2-54.2); Mean Corpuscular HGB Conc 29.4 GM/DL (32-36); Mean Corpuscular Volume 75.7 FL (87-102); Monocytes # 0.6 10*3/uL (0.11-0.8); Monocytes % 9.7 % (1.7-12.7); Neutrophils % 54.6 % (38.7-73.9); Platelet Count 234 T/CUMM (130-400); Red Blood Count 4.49 MC/CUMM (3.8-5.5); Red Cell Distribution Width 23.4 % (9.3-17.3); White Blood Count 6.1 T/CUMM (4-12)
[2021-08-28 07:13] LABS: Anisocytosis 1+; Platelet Estimate Normal
[2021-08-28 07:14] LABS: Tear Drop Cells Few
[2021-08-28 07:43] LABS: Basophilic Stippling Slight; Poikilocytosis Slight
[2021-08-28] MEDS: SCOPOLAMINE 1.5 MG PATCH TRANSDERM SCH (09:12)
[2021-08-28] MEDS: INSULIN LISPRO 100 UNIT/ML SUBCUT SCH ×2 (09:12→16:46)
[2021-08-28] MEDS: METOPROLOL TARTRATE 50 MG TABLET PO SCH ×2 (09:13→20:20)
[2021-08-28] MEDS: risperiDONE 1 MG TABLET PO SCH ×2 (09:13→20:20)
[2021-08-28] MEDS: FERROUS SULFATE 300 MG/5 ML UDCUP PO SCH ×2 (09:13→20:20)
[2021-08-28] MEDS: MAGNESIUM SULF RIDER 2 GM/50 ML PREMIX IV PRN (13:26)
[2021-08-28] MEDS: ENOXAPARIN 40 MG/0.4 ML SYRINGE SUBCUT SCH (20:20)
[2021-08-28] MEDS: INSULIN GLARGINE 100 UNIT/ML SUBCUT SCH (21:40)
[2021-08-29 05:54] LABS: Calcium 8.9 MG/DL (8.5-10.1); Osmolality,Calculated 281.5 MOS/KG (273-304); Potassium 4.3 MMOL/L (3.5-5.1)
[2021-08-29] MEDS: PANTOPRAZOLE 40 MG TABLET PO SCH (05:55)
[2021-08-29 06:14] LABS: Basophils % 0.4 % (0.0-0.8); Eosinophils # 0.1 10*3/uL (0.0-0.87); Eosinophils % 1.8 % (0.00-10.9); Immature Granulocytes % 1.2 %; Immature Granulocytes Absolute 0.07 #; Lymphocytes # 1.3 10*3/uL (1.4-4.0); Lymphocytes % 22.3 % (21.2-54.2); Mean Corpuscular HGB Conc 29.1 GM/DL (32-36); Mean Corpuscular Volume 75.2 FL (87-102); Monocytes # 0.6 10*3/uL (0.11-0.8); Monocytes % 10.2 % (1.7-12.7); Neutrophils % 64.1 % (38.7-73.9); Platelet Count 229 T/CUMM (130-400); Red Blood Count 4.71 MC/CUMM (3.8-5.5); White Blood Count 5.6 T/CUMM (4-12)
[2021-08-29 06:28] LABS: Hematocrit 35.4 VOL% (42.0-52.0); Hemoglobin 10.3 GM/DL (14.0-18.0)
[2021-08-29 06:41] LABS: Platelet Estimate Normal
[2021-08-29 06:42] LABS: Anisocytosis 2+; Tear Drop Cells Few
[2021-08-29] MEDS: INSULIN LISPRO 100 UNIT/ML SUBCUT SCH ×2 (09:38→16:19)
[2021-08-29] MEDS: risperiDONE 1 MG TABLET PO SCH ×2 (09:39→20:25)
[2021-08-29] MEDS: FERROUS SULFATE 300 MG/5 ML UDCUP PO SCH ×2 (09:39→20:25)
[2021-08-29] MEDS: METOPROLOL TARTRATE 50 MG TABLET PO SCH ×2 (09:39→20:25)
[2021-08-29] MEDS: ENOXAPARIN 40 MG/0.4 ML SYRINGE SUBCUT SCH (20:25)
[2021-08-29] MEDS: INSULIN GLARGINE 100 UNIT/ML SUBCUT SCH (21:55)
[2021-08-30] MEDS: PANTOPRAZOLE 40 MG TABLET PO SCH (05:40)
[2021-08-30 06:35] LABS: Osmolality,Calculated 277.7 MOS/KG (273-304); Potassium 4.1 MMOL/L (3.5-5.1)
[2021-08-30 06:46] LABS: Basophils % 0.3 % (0.0-0.8); Eosinophils # 0.1 10*3/uL (0.0-0.87); Immature Granulocytes % 1.3 %; Immature Granulocytes Absolute 0.08 #; Lymphocytes # 1.9 10*3/uL (1.4-4.0); Lymphocytes % 32.7 % (21.2-54.2); Mean Corpuscular Volume 74.9 FL (87-102); Monocytes # 0.7 10*3/uL (0.11-0.8); Monocytes % 11.8 % (1.7-12.7); Neutrophils % 51.9 % (38.7-73.9); Platelet Count 245 T/CUMM (130-400); Red Blood Count 4.74 MC/CUMM (3.8-5.5); Red Cell Distribution Width 23.4 % (9.3-17.3); White Blood Count 5.9 T/CUMM (4-12)
[2021-08-30 06:47] LABS: Hematocrit 35.5 VOL% (42.0-52.0); Hemoglobin 10.3 GM/DL (14.0-18.0)
[2021-08-30 06:58] LABS: Hypochromia 1+
[2021-08-30 06:59] LABS: Microcytosis 2+; Ovalocytes Slight
[2021-08-30 07:00] LABS: Platelet Estimate Normal
[2021-08-30] MEDS: ACETAMINOPHEN 325 MG TABLET PO PRN (11:14)
[2021-08-30] MEDS: risperiDONE 1 MG TABLET PO SCH ×2 (11:14→20:57)
[2021-08-30] MEDS: METOPROLOL TARTRATE 50 MG TABLET PO SCH ×2 (11:14→20:57)
[2021-08-30] MEDS: INSULIN LISPRO 100 UNIT/ML SUBCUT SCH (11:15)
[2021-08-30] MEDS: FERROUS SULFATE 300 MG/5 ML UDCUP PO SCH ×2 (11:15→20:57)
[2021-08-30] MEDS: ENOXAPARIN 40 MG/0.4 ML SYRINGE SUBCUT SCH (20:58)
[2021-08-30] MEDS: INSULIN GLARGINE 100 UNIT/ML SUBCUT SCH (20:58)
[2021-08-31] MEDS: PANTOPRAZOLE 40 MG TABLET PO SCH (05:43)
[2021-08-31 05:47] LABS: Basophils % 0.5 % (0.0-0.8); Eosinophils # 0.1 10*3/uL (0.0-0.87); Hematocrit 36.7 VOL% (42.0-52.0); Hemoglobin 10.9 GM/DL (14.0-18.0); Immature Granulocytes % 1.1 %; Immature Granulocytes Absolute 0.07 #; Lymphocytes # 2.2 10*3/uL (1.4-4.0); Lymphocytes % 33.7 % (21.2-54.2); Mean Corpuscular HGB Conc 29.7 GM/DL (32-36); Mean Corpuscular Volume 74.6 FL (87-102); Monocytes # 0.7 10*3/uL (0.11-0.8); Neutrophils % 51.7 % (38.7-73.9); Platelet Count 258 T/CUMM (130-400); Red Blood Count 4.92 MC/CUMM (3.8-5.5); Red Cell Distribution Width 22.8 % (9.3-17.3); White Blood Count 6.5 T/CUMM (4-12)
[2021-08-31 05:50] LABS: Calcium 9.6 MG/DL (8.5-10.1); Osmolality,Calculated 281.4 MOS/KG (273-304); Potassium 4.1 MMOL/L (3.5-5.1)
[2021-08-31 06:19] LABS: Hypochromia 1+; Microcytosis 2+
[2021-08-31 06:20] LABS: Ovalocytes Slight
[2021-08-31] MEDS: INSULIN LISPRO 100 UNIT/ML SUBCUT SCH ×3 (08:13→16:28)
[2021-08-31] MEDS: risperiDONE 1 MG TABLET PO SCH ×2 (09:17→20:58)
[2021-08-31] MEDS: METOPROLOL TARTRATE 50 MG TABLET PO SCH ×2 (09:17→20:58)
[2021-08-31] MEDS: FERROUS SULFATE 300 MG/5 ML UDCUP PO SCH ×2 (09:18→21:20)
[2021-08-31] MEDS: SCOPOLAMINE 1.5 MG PATCH TRANSDERM SCH (09:18)
[2021-08-31] MEDS: INSULIN GLARGINE 100 UNIT/ML SUBCUT SCH (20:58)
[2021-08-31] MEDS: ENOXAPARIN 40 MG/0.4 ML SYRINGE SUBCUT SCH (20:58)
[2021-09-01] MEDS: PANTOPRAZOLE 40 MG TABLET PO SCH (05:32)
[2021-09-01] MEDS: METOPROLOL TARTRATE 50 MG TABLET PO SCH ×2 (09:03→21:34)
[2021-09-01] MEDS: risperiDONE 1 MG TABLET PO SCH ×2 (09:03→21:34)
[2021-09-01 10:02] LABS: Alanine Aminotransferase 39 U/L (16-61); Albumin 2.6 G/DL (3.4-5.0); Alkaline Phosphatase 130 U/L (45-117); Aspartate Amino Transferase 17 U/L (0-37); Bilirubin,Total < 0.39 MG/DL (0.20-1.00); Blood Urea Nitrogen 18 MG/DL (7-18); Calcium 9.2 MG/DL (8.5-10.1); Carbon Dioxide 24 MMOL/L (21-32); Chloride 109 MMOL/L (98-107); Estimated Glom Filtration Rate 83 ML/MIN; Glucose 165 MG/DL (74-106); Osmolality,Calculated 280.7 MOS/KG (273-304); Potassium 4.4 MMOL/L (3.5-5.1); Sodium 138 MMOL/L (136-145)
[2021-09-01 10:04] LABS: Basophils % 0.2 % (0.0-0.8); Eosinophils # 0.1 10*3/uL (0.0-0.87); Eosinophils % 1.6 % (0.00-10.9); Hematocrit 37.1 VOL% (42.0-52.0); Immature Granulocytes % 1.1 %; Immature Granulocytes Absolute 0.07 #; Lymphocytes # 2.1 10*3/uL (1.4-4.0); Lymphocytes % 33.6 % (21.2-54.2); Mean Corpuscular HGB Conc 29.1 GM/DL (32-36); Mean Corpuscular Volume 73.9 FL (87-102); Monocytes # 0.5 10*3/uL (0.11-0.8); Monocytes % 8.2 % (1.7-12.7); Neutrophils % 55.3 % (38.7-73.9); Platelet Count 204 T/CUMM (130-400); Red Blood Count 5.02 MC/CUMM (3.8-5.5); Red Cell Distribution Width 22.8 % (9.3-17.3); White Blood Count 6.3 T/CUMM (4-12)
[2021-09-01] MEDS: INSULIN LISPRO 100 UNIT/ML SUBCUT SCH ×2 (10:04→19:42)
[2021-09-01] MEDS: FERROUS SULFATE 300 MG/5 ML UDCUP PO SCH ×2 (10:04→22:23)
[2021-09-01 10:05] LABS: Hemoglobin 10.8 GM/DL (14.0-18.0)
[2021-09-01 10:16] LABS: Hypochromia 1+; Microcytosis 2+
[2021-09-01 10:17] LABS: Ovalocytes Few
[2021-09-01] MEDS ORDERED: MAGNESIUM OXIDE 400 MG TABLET PO ONE (13:00)
[2021-09-01] MEDS: ENOXAPARIN 40 MG/0.4 ML SYRINGE SUBCUT SCH (21:34)
[2021-09-01] MEDS: INSULIN GLARGINE 100 UNIT/ML SUBCUT SCH (21:35)
[2021-09-02] MEDS: PANTOPRAZOLE 40 MG TABLET PO SCH (05:33)
[2021-09-02 05:49] LABS: Alanine Aminotransferase 31 U/L (16-61); Albumin 2.6 G/DL (3.4-5.0); Alkaline Phosphatase 128 U/L (45-117); Aspartate Amino Transferase 11 U/L (0-37); Bilirubin,Total < 0.39 MG/DL (0.20-1.00); Blood Urea Nitrogen 20 MG/DL (7-18); Calcium 8.7 MG/DL (8.5-10.1); Carbon Dioxide 25 MMOL/L (21-32); Chloride 110 MMOL/L (98-107); Estimated Glom Filtration Rate 91 ML/MIN; Glucose 142 MG/DL (74-106); Osmolality,Calculated 281.5 MOS/KG (273-304); Sodium 139 MMOL/L (136-145); Total Protein 7.6 G/DL (6.4-8.2)
[2021-09-02 05:58] LABS: Basophils % 0.3 % (0.0-0.8); Eosinophils # 0.1 10*3/uL (0.0-0.87); Hemoglobin 10.3 GM/DL (14.0-18.0); Immature Granulocytes % 0.9 %; Immature Granulocytes Absolute 0.06 #; Lymphocytes # 2.2 10*3/uL (1.4-4.0); Lymphocytes % 33.8 % (21.2-54.2); Mean Corpuscular Volume 74.7 FL (87-102); Monocytes # 0.6 10*3/uL (0.11-0.8); Monocytes % 9.5 % (1.7-12.7); Neutrophils % 53.5 % (38.7-73.9); Platelet Count 262 T/CUMM (130-400); Red Blood Count 4.75 MC/CUMM (3.8-5.5); Red Cell Distribution Width 22.1 % (9.3-17.3); White Blood Count 6.5 T/CUMM (4-12)
[2021-09-02 05:59] LABS: Hematocrit 35.5 VOL% (42.0-52.0)
[2021-09-02] MEDS: INSULIN LISPRO 100 UNIT/ML SUBCUT SCH ×2 (09:50→16:07)
[2021-09-02] MEDS: FERROUS SULFATE 300 MG/5 ML UDCUP PO SCH ×2 (09:58→21:40)
[2021-09-02] MEDS: risperiDONE 1 MG TABLET PO SCH ×2 (09:58→21:38)
[2021-09-02] MEDS: METOPROLOL TARTRATE 50 MG TABLET PO SCH ×2 (09:58→21:38)
[2021-09-02] MEDS ORDERED: MAGNESIUM OXIDE 400 MG TABLET PO ONE (12:30)
[2021-09-02] MEDS: ENOXAPARIN 40 MG/0.4 ML SYRINGE SUBCUT SCH (21:38)
[2021-09-02] MEDS: INSULIN GLARGINE 100 UNIT/ML SUBCUT SCH (21:39)
[2021-09-02] MEDS: MENTHOL/ZINC OXIDE OINT 71 GM JAR TOP SCH (22:40)
[2021-09-03 05:17] LABS: Calcium 9.5 MG/DL (8.5-10.1); Osmolality,Calculated 279.5 MOS/KG (273-304); Potassium 3.9 MMOL/L (3.5-5.1)
[2021-09-03 05:25] LABS: Basophils % 0.3 % (0.0-0.8); Eosinophils # 0.1 10*3/uL (0.0-0.87); Eosinophils % 1.9 % (0.00-10.9); Hemoglobin 10.6 GM/DL (14.0-18.0); Immature Granulocytes % 1.2 %; Immature Granulocytes Absolute 0.08 #; Lymphocytes # 2.4 10*3/uL (1.4-4.0); Monocytes # 0.6 10*3/uL (0.11-0.8); Monocytes % 9.3 % (1.7-12.7); Neutrophils % 52.3 % (38.7-73.9); Platelet Count 311 T/CUMM (130-400); Red Blood Count 4.88 MC/CUMM (3.8-5.5); Red Cell Distribution Width 21.9 % (9.3-17.3); White Blood Count 6.8 T/CUMM (4-12)
[2021-09-03 05:27] LABS: Hematocrit 36.6 VOL% (42.0-52.0)
[2021-09-03] MEDS: PANTOPRAZOLE 40 MG TABLET PO SCH (06:21)
[2021-09-03] MEDS: FERROUS SULFATE 300 MG/5 ML UDCUP PO SCH ×2 (10:50→21:35)
[2021-09-03] MEDS: SCOPOLAMINE 1.5 MG PATCH TRANSDERM SCH (10:50)
[2021-09-03] MEDS: risperiDONE 1 MG TABLET PO SCH ×2 (10:51→21:30)
[2021-09-03] MEDS: METOPROLOL TARTRATE 50 MG TABLET PO SCH ×2 (10:51→21:30)
[2021-09-03] MEDS: MENTHOL/ZINC OXIDE OINT 71 GM JAR TOP SCH ×2 (10:51→21:35)
[2021-09-03] MEDS: INSULIN LISPRO 100 UNIT/ML SUBCUT SCH ×2 (11:25→16:47)
[2021-09-03] MEDS: INSULIN GLARGINE 100 UNIT/ML SUBCUT SCH (21:30)
[2021-09-03] MEDS: ENOXAPARIN 40 MG/0.4 ML SYRINGE SUBCUT SCH (21:30)
[2021-09-04] MEDS: PANTOPRAZOLE 40 MG TABLET PO SCH (06:00)
[2021-09-04 06:29] LABS: Calcium 8.7 MG/DL (8.5-10.1); Osmolality,Calculated 286.3 MOS/KG (273-304); Potassium 3.9 MMOL/L (3.5-5.1)
[2021-09-04 06:41] LABS: Basophils % 0.2 % (0.0-0.8); Eosinophils # 0.1 10*3/uL (0.0-0.87); Eosinophils % 1.6 % (0.00-10.9); Hematocrit 35.3 VOL% (42.0-52.0); Immature Granulocytes % 1.8 %; Lymphocytes % 35.4 % (21.2-54.2); Mean Corpuscular HGB Conc 29.2 GM/DL (32-36); Mean Corpuscular Volume 74.9 FL (87-102); Monocytes # 0.5 10*3/uL (0.11-0.8); Monocytes % 8.8 % (1.7-12.7); Neutrophils % 52.2 % (38.7-73.9); Platelet Count 292 T/CUMM (130-400); Red Blood Count 4.71 MC/CUMM (3.8-5.5); Red Cell Distribution Width 21.9 % (9.3-17.3); White Blood Count 5.7 T/CUMM (4-12)
[2021-09-04 06:44] LABS: Hemoglobin 10.3 GM/DL (14.0-18.0)
[2021-09-04] MEDS: INSULIN LISPRO 100 UNIT/ML SUBCUT SCH ×2 (07:55→16:01)
[2021-09-04] MEDS: MENTHOL/ZINC OXIDE OINT 71 GM JAR TOP SCH ×2 (08:23→21:39)
[2021-09-04] MEDS: risperiDONE 1 MG TABLET PO SCH ×2 (08:24→21:33)
[2021-09-04] MEDS: FERROUS SULFATE 300 MG/5 ML UDCUP PO SCH ×2 (08:24→21:34)
[2021-09-04] MEDS: METOPROLOL TARTRATE 50 MG TABLET PO SCH ×2 (08:24→21:33)
[2021-09-04] MEDS: MAGNESIUM OXIDE 400 MG TABLET PO SCH ×2 (10:53→21:33)
[2021-09-04] MEDS: ENOXAPARIN 40 MG/0.4 ML SYRINGE SUBCUT SCH (21:33)
[2021-09-04] MEDS: INSULIN GLARGINE 100 UNIT/ML SUBCUT SCH (21:34)
[2021-09-05 05:38] LABS: Osmolality,Calculated 279.5 MOS/KG (273-304)
[2021-09-05] MEDS: PANTOPRAZOLE 40 MG TABLET PO SCH (06:11)
[2021-09-05] MEDS: ACETAMINOPHEN 325 MG TABLET PO PRN (06:30)
[2021-09-05] MEDS: INSULIN LISPRO 100 UNIT/ML SUBCUT SCH ×2 (08:53→17:17)
[2021-09-05] MEDS: METOPROLOL TARTRATE 50 MG TABLET PO SCH ×2 (08:53→21:21)
[2021-09-05] MEDS: MAGNESIUM OXIDE 400 MG TABLET PO SCH ×2 (08:53→21:21)
[2021-09-05] MEDS: risperiDONE 1 MG TABLET PO SCH ×2 (08:53→21:21)
[2021-09-05] MEDS: MENTHOL/ZINC OXIDE OINT 71 GM JAR TOP SCH ×2 (08:54→21:26)
[2021-09-05] MEDS: FERROUS SULFATE 300 MG/5 ML UDCUP PO SCH ×2 (08:55→21:23)
[2021-09-05] MEDS: INSULIN GLARGINE 100 UNIT/ML SUBCUT SCH (21:23)
[2021-09-05] MEDS: ENOXAPARIN 40 MG/0.4 ML SYRINGE SUBCUT SCH (21:23)
[2021-09-06] MEDS: PANTOPRAZOLE 40 MG TABLET PO SCH (06:40)
[2021-09-06] MEDS: METOPROLOL TARTRATE 50 MG TABLET PO SCH ×2 (09:03→20:30)
[2021-09-06] MEDS: risperiDONE 1 MG TABLET PO SCH ×2 (09:03→20:31)
[2021-09-06] MEDS: INSULIN LISPRO 100 UNIT/ML SUBCUT SCH ×2 (09:03→16:11)
[2021-09-06] MEDS: MAGNESIUM OXIDE 400 MG TABLET PO SCH ×2 (09:03→20:31)
[2021-09-06] MEDS: MENTHOL/ZINC OXIDE OINT 71 GM JAR TOP SCH ×2 (09:04→20:31)
[2021-09-06] MEDS: SCOPOLAMINE 1.5 MG PATCH TRANSDERM SCH (09:15)
[2021-09-06] MEDS: FERROUS SULFATE 300 MG/5 ML UDCUP PO SCH ×2 (09:16→20:32)
[2021-09-06] MEDS: ACETAMINOPHEN 325 MG TABLET PO PRN (20:31)
[2021-09-06] MEDS: INSULIN GLARGINE 100 UNIT/ML SUBCUT SCH (20:32)
[2021-09-06] MEDS: ENOXAPARIN 40 MG/0.4 ML SYRINGE SUBCUT SCH (20:41)
[2021-09-07] MEDS: PANTOPRAZOLE 40 MG TABLET PO SCH (05:59)
[2021-09-07] MEDS: risperiDONE 1 MG TABLET PO SCH ×2 (09:33→20:44)
[2021-09-07] MEDS: METOPROLOL TARTRATE 50 MG TABLET PO SCH ×2 (09:34→20:44)
[2021-09-07] MEDS: MENTHOL/ZINC OXIDE OINT 71 GM JAR TOP SCH ×2 (09:34→20:44)
[2021-09-07] MEDS: MAGNESIUM OXIDE 400 MG TABLET PO SCH ×2 (09:34→20:43)
[2021-09-07] MEDS: INSULIN LISPRO 100 UNIT/ML SUBCUT SCH ×2 (09:34→17:24)
[2021-09-07] MEDS: FERROUS SULFATE 300 MG/5 ML UDCUP PO SCH ×2 (09:35→20:44)
[2021-09-07] MEDS: ENOXAPARIN 40 MG/0.4 ML SYRINGE SUBCUT SCH (20:44)
[2021-09-07] MEDS: INSULIN GLARGINE 100 UNIT/ML SUBCUT SCH (20:45)
[2021-09-08] MEDS: PANTOPRAZOLE 40 MG TABLET PO SCH (05:39)
[2021-09-08 05:55] LABS: Calcium 8.8 MG/DL (8.5-10.1); Osmolality,Calculated 281.4 MOS/KG (273-304)
[2021-09-08 06:23] LABS: Basophils % 0.3 % (0.0-0.8); Eosinophils # 0.1 10*3/uL (0.0-0.87); Eosinophils % 1.3 % (0.00-10.9); Hemoglobin 10.3 GM/DL (14.0-18.0); Immature Granulocytes Absolute 0.08 #; Lymphocytes # 2.6 10*3/uL (1.4-4.0); Lymphocytes % 32.3 % (21.2-54.2); Mean Corpuscular HGB Conc 29.4 GM/DL (32-36); Mean Corpuscular Volume 74.9 FL (87-102); Monocytes % 11.9 % (1.7-12.7); Neutrophils % 53.2 % (38.7-73.9); Platelet Count 276 T/CUMM (130-400); Red Blood Count 4.67 MC/CUMM (3.8-5.5)
[2021-09-08 06:28] LABS: Hypochromia 1+; Microcytosis 1+
[2021-09-08 06:29] LABS: Ovalocytes Slight; Platelet Estimate Normal
[2021-09-08] MEDS: INSULIN LISPRO 100 UNIT/ML SUBCUT SCH ×2 (07:59→16:39)
[2021-09-08] MEDS: FERROUS SULFATE 300 MG/5 ML UDCUP PO SCH ×3 (09:02→20:53)
[2021-09-08] MEDS: MAGNESIUM OXIDE 400 MG TABLET PO SCH ×2 (09:02→20:53)
[2021-09-08] MEDS: risperiDONE 1 MG TABLET PO SCH ×2 (09:03→20:52)
[2021-09-08] MEDS: METOPROLOL TARTRATE 50 MG TABLET PO SCH ×2 (09:03→20:53)
[2021-09-08] MEDS: MENTHOL/ZINC OXIDE OINT 71 GM JAR TOP SCH ×2 (11:58→20:52)
[2021-09-08] MEDS: INSULIN GLARGINE 100 UNIT/ML SUBCUT SCH (20:53)
[2021-09-08] MEDS: ENOXAPARIN 40 MG/0.4 ML SYRINGE SUBCUT SCH (20:53)
[2021-09-09] MEDS: PANTOPRAZOLE 40 MG TABLET PO SCH (06:53)
[2021-09-09] MEDS: INSULIN LISPRO 100 UNIT/ML SUBCUT SCH ×2 (07:47→17:24)
[2021-09-09] MEDS: MENTHOL/ZINC OXIDE OINT 71 GM JAR TOP SCH ×2 (08:55→20:50)
[2021-09-09] MEDS: METOPROLOL TARTRATE 50 MG TABLET PO SCH ×2 (08:55→20:49)
[2021-09-09] MEDS: SCOPOLAMINE 1.5 MG PATCH TRANSDERM SCH (08:55)
[2021-09-09] MEDS: risperiDONE 1 MG TABLET PO SCH ×2 (08:55→20:49)
[2021-09-09] MEDS: MAGNESIUM OXIDE 400 MG TABLET PO SCH ×2 (08:55→20:49)
[2021-09-09] MEDS: FERROUS SULFATE 300 MG/5 ML UDCUP PO SCH ×2 (09:01→20:49)
[2021-09-09] MEDS: ENOXAPARIN 40 MG/0.4 ML SYRINGE SUBCUT SCH (20:49)
[2021-09-09] MEDS: INSULIN GLARGINE 100 UNIT/ML SUBCUT SCH (20:49)
[2021-09-10] MEDS: PANTOPRAZOLE 40 MG TABLET PO SCH (06:08)
[2021-09-10] MEDS: INSULIN LISPRO 100 UNIT/ML SUBCUT SCH ×2 (08:43→17:22)
[2021-09-10] MEDS: risperiDONE 1 MG TABLET PO SCH ×3 (09:32→23:25)
[2021-09-10] MEDS: METOPROLOL TARTRATE 50 MG TABLET PO SCH ×3 (09:32→23:24)
[2021-09-10] MEDS: FERROUS SULFATE 300 MG/5 ML UDCUP PO SCH ×2 (09:32→22:16)
[2021-09-10] MEDS: MENTHOL/ZINC OXIDE OINT 71 GM JAR TOP SCH ×2 (09:32→22:16)
[2021-09-10] MEDS: MAGNESIUM OXIDE 400 MG TABLET PO SCH ×3 (09:32→23:25)
[2021-09-10] MEDS: INSULIN GLARGINE 100 UNIT/ML SUBCUT SCH (22:16)
[2021-09-10] MEDS: ENOXAPARIN 40 MG/0.4 ML SYRINGE SUBCUT SCH ×2 (22:17→23:24)
[2021-09-11] MEDS: PANTOPRAZOLE 40 MG TABLET PO SCH (06:20)
[2021-09-11] MEDS: MENTHOL/ZINC OXIDE OINT 71 GM JAR TOP SCH ×2 (09:54→21:38)
[2021-09-11] MEDS: risperiDONE 1 MG TABLET PO SCH ×2 (09:54→21:36)
[2021-09-11] MEDS: INSULIN LISPRO 100 UNIT/ML SUBCUT SCH ×2 (09:54→16:01)
[2021-09-11] MEDS: METOPROLOL TARTRATE 50 MG TABLET PO SCH ×2 (09:54→21:37)
[2021-09-11] MEDS: MAGNESIUM OXIDE 400 MG TABLET PO SCH ×2 (09:54→21:36)
[2021-09-11] MEDS: FERROUS SULFATE 300 MG/5 ML UDCUP PO SCH ×2 (09:57→21:41)
[2021-09-11] MEDS: INSULIN GLARGINE 100 UNIT/ML SUBCUT SCH (21:37)
[2021-09-11] MEDS: ENOXAPARIN 40 MG/0.4 ML SYRINGE SUBCUT SCH (21:37)
[2021-09-11] MEDS: ACETAMINOPHEN 325 MG TABLET PO PRN (21:39)
[2021-09-12] MEDS: PANTOPRAZOLE 40 MG TABLET PO SCH (05:54)
[2021-09-12] MEDS: MENTHOL/ZINC OXIDE OINT 71 GM JAR TOP SCH ×2 (09:54→21:11)
[2021-09-12] MEDS: INSULIN LISPRO 100 UNIT/ML SUBCUT SCH ×2 (09:54→17:20)
[2021-09-12] MEDS: risperiDONE 1 MG TABLET PO SCH ×2 (09:55→21:10)
[2021-09-12] MEDS: SCOPOLAMINE 1.5 MG PATCH TRANSDERM SCH (09:55)
[2021-09-12] MEDS: MAGNESIUM OXIDE 400 MG TABLET PO SCH ×2 (09:55→21:11)
[2021-09-12] MEDS: METOPROLOL TARTRATE 50 MG TABLET PO SCH ×2 (09:55→21:10)
[2021-09-12] MEDS: FERROUS SULFATE 300 MG/5 ML UDCUP PO SCH ×2 (09:56→21:11)
[2021-09-12] MEDS: ENOXAPARIN 40 MG/0.4 ML SYRINGE SUBCUT SCH (21:10)
[2021-09-12] MEDS: ACETAMINOPHEN 325 MG TABLET PO PRN (21:10)
[2021-09-12] MEDS: INSULIN GLARGINE 100 UNIT/ML SUBCUT SCH (21:10)
[2021-09-13] MEDS: PANTOPRAZOLE 40 MG TABLET PO SCH (06:18)
[2021-09-13] MEDS: METOPROLOL TARTRATE 50 MG TABLET PO SCH ×2 (09:25→20:49)
[2021-09-13] MEDS: risperiDONE 1 MG TABLET PO SCH ×2 (09:25→20:49)
[2021-09-13] MEDS: MAGNESIUM OXIDE 400 MG TABLET PO SCH ×2 (09:26→20:49)
[2021-09-13] MEDS: MENTHOL/ZINC OXIDE OINT 71 GM JAR TOP SCH ×2 (09:28→20:55)
[2021-09-13] MEDS: FERROUS SULFATE 300 MG/5 ML UDCUP PO SCH ×2 (09:29→20:55)
[2021-09-13] MEDS: INSULIN LISPRO 100 UNIT/ML SUBCUT SCH ×2 (09:34→17:58)
[2021-09-13] MEDS: INSULIN GLARGINE 100 UNIT/ML SUBCUT SCH (20:55)
[2021-09-13] MEDS: ENOXAPARIN 40 MG/0.4 ML SYRINGE SUBCUT SCH (20:56)
[2021-09-14] MEDS: PANTOPRAZOLE 40 MG TABLET PO SCH (06:08)
[2021-09-14] MEDS: MAGNESIUM OXIDE 400 MG TABLET PO SCH ×2 (08:58→21:15)
[2021-09-14] MEDS: METOPROLOL TARTRATE 50 MG TABLET PO SCH ×2 (08:58→21:16)
[2021-09-14] MEDS: INSULIN LISPRO 100 UNIT/ML SUBCUT SCH ×2 (08:58→17:17)
[2021-09-14] MEDS: MENTHOL/ZINC OXIDE OINT 71 GM JAR TOP SCH ×2 (08:58→21:19)
[2021-09-14] MEDS: risperiDONE 1 MG TABLET PO SCH ×2 (08:59→21:15)
[2021-09-14] MEDS: FERROUS SULFATE 300 MG/5 ML UDCUP PO SCH ×2 (08:59→21:12)
[2021-09-14] MEDS: ENOXAPARIN 40 MG/0.4 ML SYRINGE SUBCUT SCH (21:15)
[2021-09-14] MEDS: INSULIN GLARGINE 100 UNIT/ML SUBCUT SCH (21:16)
[2021-09-15] MEDS: PANTOPRAZOLE 40 MG TABLET PO SCH (06:05)
[2021-09-15] MEDS: INSULIN LISPRO 100 UNIT/ML SUBCUT SCH ×2 (07:59→17:26)
[2021-09-15] MEDS: METOPROLOL TARTRATE 50 MG TABLET PO SCH ×2 (09:24→21:35)
[2021-09-15] MEDS: MAGNESIUM OXIDE 400 MG TABLET PO SCH ×2 (09:24→21:35)
[2021-09-15] MEDS: risperiDONE 1 MG TABLET PO SCH ×2 (09:24→21:35)
[2021-09-15] MEDS: SCOPOLAMINE 1.5 MG PATCH TRANSDERM SCH (09:24)
[2021-09-15] MEDS: MENTHOL/ZINC OXIDE OINT 71 GM JAR TOP SCH ×2 (09:24→21:38)
[2021-09-15] MEDS: FERROUS SULFATE 300 MG/5 ML UDCUP PO SCH ×2 (10:03→21:35)
[2021-09-15] MEDS: ENOXAPARIN 40 MG/0.4 ML SYRINGE SUBCUT SCH (21:35)
[2021-09-15] MEDS: INSULIN GLARGINE 100 UNIT/ML SUBCUT SCH (21:36)
[2021-09-16] MEDS: FERROUS SULFATE 300 MG/5 ML UDCUP PO SCH ×3 (00:44→21:26)
[2021-09-16] MEDS: PANTOPRAZOLE 40 MG TABLET PO SCH (05:31)
[2021-09-16] MEDS: INSULIN LISPRO 100 UNIT/ML SUBCUT SCH ×2 (07:49→18:06)
[2021-09-16] MEDS: MAGNESIUM OXIDE 400 MG TABLET PO SCH ×2 (08:44→21:24)
[2021-09-16] MEDS: MENTHOL/ZINC OXIDE OINT 71 GM JAR TOP SCH ×2 (08:44→21:25)
[2021-09-16] MEDS: METOPROLOL TARTRATE 50 MG TABLET PO SCH ×2 (08:44→21:24)
[2021-09-16] MEDS: risperiDONE 1 MG TABLET PO SCH ×2 (08:44→21:24)
[2021-09-16] MEDS: INSULIN GLARGINE 100 UNIT/ML SUBCUT SCH (21:25)
[2021-09-16] MEDS: ENOXAPARIN 40 MG/0.4 ML SYRINGE SUBCUT SCH (21:25)
[2021-09-17] MEDS: PANTOPRAZOLE 40 MG TABLET PO SCH (06:07)
[2021-09-17] MEDS: INSULIN LISPRO 100 UNIT/ML SUBCUT SCH ×2 (08:04→17:26)
[2021-09-17] MEDS: MENTHOL/ZINC OXIDE OINT 71 GM JAR TOP SCH ×2 (08:32→21:16)
[2021-09-17] MEDS: METOPROLOL TARTRATE 50 MG TABLET PO SCH ×2 (08:32→21:17)
[2021-09-17] MEDS: risperiDONE 1 MG TABLET PO SCH ×2 (08:32→21:16)
[2021-09-17] MEDS: MAGNESIUM OXIDE 400 MG TABLET PO SCH ×2 (08:32→21:16)
[2021-09-17] MEDS: FERROUS SULFATE 300 MG/5 ML UDCUP PO SCH ×2 (08:34→21:17)
[2021-09-17] MEDS: INSULIN GLARGINE 100 UNIT/ML SUBCUT SCH (21:16)
[2021-09-17] MEDS: ENOXAPARIN 40 MG/0.4 ML SYRINGE SUBCUT SCH (21:16)
[2021-09-18] MEDS: PANTOPRAZOLE 40 MG TABLET PO SCH (06:31)
[2021-09-18] MEDS: METOPROLOL TARTRATE 50 MG TABLET PO SCH ×2 (08:38→21:51)
[2021-09-18] MEDS: SCOPOLAMINE 1.5 MG PATCH TRANSDERM SCH (08:38)
[2021-09-18] MEDS: MAGNESIUM OXIDE 400 MG TABLET PO SCH ×2 (08:39→21:51)
[2021-09-18] MEDS: MENTHOL/ZINC OXIDE OINT 71 GM JAR TOP SCH ×2 (08:39→21:56)
[2021-09-18] MEDS: risperiDONE 1 MG TABLET PO SCH ×2 (08:39→21:51)
[2021-09-18] MEDS: FERROUS SULFATE 300 MG/5 ML UDCUP PO SCH ×2 (08:39→21:52)
[2021-09-18] MEDS: INSULIN LISPRO 100 UNIT/ML SUBCUT SCH ×2 (11:55→19:22)
[2021-09-18] MEDS: INSULIN GLARGINE 100 UNIT/ML SUBCUT SCH (21:51)
[2021-09-18] MEDS: ENOXAPARIN 40 MG/0.4 ML SYRINGE SUBCUT SCH (21:51)
[2021-09-19] MEDS: PANTOPRAZOLE 40 MG TABLET PO SCH (05:50)
[2021-09-19] MEDS: INSULIN LISPRO 100 UNIT/ML SUBCUT SCH ×2 (09:03→16:12)
[2021-09-19] MEDS: FERROUS SULFATE 300 MG/5 ML UDCUP PO SCH ×2 (09:04→20:40)
[2021-09-19] MEDS: risperiDONE 1 MG TABLET PO SCH ×2 (09:04→20:40)
[2021-09-19] MEDS: MAGNESIUM OXIDE 400 MG TABLET PO SCH ×2 (09:04→20:40)
[2021-09-19] MEDS: METOPROLOL TARTRATE 50 MG TABLET PO SCH ×2 (09:04→20:40)
[2021-09-19] MEDS: MENTHOL/ZINC OXIDE OINT 71 GM JAR TOP SCH ×2 (09:05→20:40)
[2021-09-19] MEDS: ENOXAPARIN 40 MG/0.4 ML SYRINGE SUBCUT SCH (20:40)
[2021-09-19] MEDS: INSULIN GLARGINE 100 UNIT/ML SUBCUT SCH (20:40)
[2021-09-20] MEDS: PANTOPRAZOLE 40 MG TABLET PO SCH (05:30)
[2021-09-20] MEDS: risperiDONE 1 MG TABLET PO SCH ×2 (09:15→20:40)
[2021-09-20] MEDS: METOPROLOL TARTRATE 50 MG TABLET PO SCH ×2 (09:15→20:40)
[2021-09-20] MEDS: MAGNESIUM OXIDE 400 MG TABLET PO SCH ×2 (09:15→20:40)
[2021-09-20] MEDS: FERROUS SULFATE 300 MG/5 ML UDCUP PO SCH (09:16)
[2021-09-20] MEDS: INSULIN LISPRO 100 UNIT/ML SUBCUT SCH ×2 (09:16→16:11)
[2021-09-20] MEDS: MENTHOL/ZINC OXIDE OINT 71 GM JAR TOP SCH ×2 (09:16→20:40)
[2021-09-20] MEDS: ENOXAPARIN 40 MG/0.4 ML SYRINGE SUBCUT SCH (20:40)
[2021-09-20] MEDS: INSULIN GLARGINE 100 UNIT/ML SUBCUT SCH (20:40)
[2021-09-21] MEDS: PANTOPRAZOLE 40 MG TABLET PO SCH (06:47)
[2021-09-21] MEDS: risperiDONE 1 MG TABLET PO SCH ×2 (08:48→21:53)
[2021-09-21] MEDS: METOPROLOL TARTRATE 50 MG TABLET PO SCH ×2 (08:48→21:53)
[2021-09-21] MEDS: MENTHOL/ZINC OXIDE OINT 71 GM JAR TOP SCH ×2 (08:48→21:53)
[2021-09-21] MEDS: FERROUS SULFATE 325 MG TABLET PO SCH (08:48)
[2021-09-21] MEDS: MAGNESIUM OXIDE 400 MG TABLET PO SCH ×2 (08:48→21:53)
[2021-09-21] MEDS: INSULIN LISPRO 100 UNIT/ML SUBCUT SCH ×2 (08:49→16:11)
[2021-09-21] MEDS: SCOPOLAMINE 1.5 MG PATCH TRANSDERM SCH (08:49)
[2021-09-21] MEDS: INSULIN GLARGINE 100 UNIT/ML SUBCUT SCH (21:53)
[2021-09-21] MEDS: ENOXAPARIN 40 MG/0.4 ML SYRINGE SUBCUT SCH (21:53)
[2021-09-22] MEDS: PANTOPRAZOLE 40 MG TABLET PO SCH (05:46)
[2021-09-22 06:31] LABS: Calcium 9.2 MG/DL (8.5-10.1); Osmolality,Calculated 274.7 MOS/KG (273-304)
[2021-09-22 06:46] LABS: Basophils % 0.3 % (0.0-0.8); Eosinophils # 0.2 10*3/uL (0.0-0.87); Eosinophils % 2.1 % (0.00-10.9); Hematocrit 34.9 VOL% (42.0-52.0); Immature Granulocytes % 0.8 %; Immature Granulocytes Absolute 0.06 #; Lymphocytes # 2.2 10*3/uL (1.4-4.0); Lymphocytes % 30.5 % (21.2-54.2); Mean Corpuscular HGB Conc 28.9 GM/DL (32-36); Mean Corpuscular Volume 74.3 FL (87-102); Mean Platelet Volume 11.1 FL (9.6-12.0); Monocytes # 0.9 10*3/uL (0.11-0.8); Monocytes % 12.7 % (1.7-12.7); NRBC # 0.02 10*3/uL; Neutrophils % 53.6 % (38.7-73.9); Platelet Count 284 T/CUMM (130-400); Red Cell Distribution Width 18.9 % (9.3-17.3); White Blood Count 7.1 T/CUMM (4-12)
[2021-09-22 06:47] LABS: Hemoglobin 10.1 GM/DL (14.0-18.0)
[2021-09-22 07:04] LABS: Hypochromia 1+; Microcytosis 1+; Ovalocytes Slight
[2021-09-22 07:05] LABS: Platelet Estimate Normal; Tear Drop Cells Slight
[2021-09-22] MEDS: MAGNESIUM OXIDE 400 MG TABLET PO SCH ×2 (08:37→21:11)
[2021-09-22] MEDS: METOPROLOL TARTRATE 50 MG TABLET PO SCH ×2 (08:37→21:11)
[2021-09-22] MEDS: FERROUS SULFATE 325 MG TABLET PO SCH (08:37)
[2021-09-22] MEDS: risperiDONE 1 MG TABLET PO SCH ×2 (08:38→21:11)
[2021-09-22] MEDS: MENTHOL/ZINC OXIDE OINT 71 GM JAR TOP SCH ×2 (08:38→21:12)
[2021-09-22] MEDS: INSULIN LISPRO 100 UNIT/ML SUBCUT SCH ×2 (13:59→21:11)
[2021-09-22] MEDS: guaiFENesin/DM ER 600-30 MG TABLET PO PRN (21:11)
[2021-09-22] MEDS: INSULIN GLARGINE 100 UNIT/ML SUBCUT SCH (21:11)
[2021-09-22] MEDS: ENOXAPARIN 40 MG/0.4 ML SYRINGE SUBCUT SCH (21:11)
[2021-09-23] MEDS: PANTOPRAZOLE 40 MG TABLET PO SCH (05:57)
[2021-09-23] MEDS: METOPROLOL TARTRATE 50 MG TABLET PO SCH ×2 (09:49→22:21)
[2021-09-23] MEDS: MAGNESIUM OXIDE 400 MG TABLET PO SCH ×2 (09:49→22:21)
[2021-09-23] MEDS: MENTHOL/ZINC OXIDE OINT 71 GM JAR TOP SCH ×2 (09:49→22:21)
[2021-09-23] MEDS: FERROUS SULFATE 325 MG TABLET PO SCH (09:49)
[2021-09-23] MEDS: INSULIN LISPRO 100 UNIT/ML SUBCUT SCH ×2 (09:49→16:07)
[2021-09-23] MEDS: risperiDONE 1 MG TABLET PO SCH ×2 (09:49→22:21)
[2021-09-23] MEDS: INSULIN GLARGINE 100 UNIT/ML SUBCUT SCH (22:21)
[2021-09-23] MEDS: ENOXAPARIN 40 MG/0.4 ML SYRINGE SUBCUT SCH (22:21)
[2021-09-24] MEDS: PANTOPRAZOLE 40 MG TABLET PO SCH (05:36)
[2021-09-24] MEDS: MAGNESIUM OXIDE 400 MG TABLET PO SCH ×2 (09:25→20:00)
[2021-09-24] MEDS: FERROUS SULFATE 325 MG TABLET PO SCH (09:25)
[2021-09-24] MEDS: METOPROLOL TARTRATE 50 MG TABLET PO SCH ×2 (09:25→20:00)
[2021-09-24] MEDS: MENTHOL/ZINC OXIDE OINT 71 GM JAR TOP SCH ×2 (09:26→20:00)
[2021-09-24] MEDS: SCOPOLAMINE 1.5 MG PATCH TRANSDERM SCH (09:26)
[2021-09-24] MEDS: risperiDONE 1 MG TABLET PO SCH ×2 (09:26→20:00)
[2021-09-24] MEDS: INSULIN LISPRO 100 UNIT/ML SUBCUT SCH ×2 (09:28→19:07)
[2021-09-24] MEDS: guaiFENesin/DM ER 600-30 MG TABLET PO PRN ×2 (15:41→22:55)
[2021-09-24] MEDS: INSULIN GLARGINE 100 UNIT/ML SUBCUT SCH (20:00)
[2021-09-24] MEDS: ENOXAPARIN 40 MG/0.4 ML SYRINGE SUBCUT SCH (20:00)
[2021-09-25] MEDS: PANTOPRAZOLE 40 MG TABLET PO SCH (06:00)
[2021-09-25] MEDS: FERROUS SULFATE 325 MG TABLET PO SCH (10:06)
[2021-09-25] MEDS: risperiDONE 1 MG TABLET PO SCH ×2 (10:06→20:55)
[2021-09-25] MEDS: METOPROLOL TARTRATE 50 MG TABLET PO SCH ×2 (10:06→20:55)
[2021-09-25] MEDS: MAGNESIUM OXIDE 400 MG TABLET PO SCH ×2 (10:06→20:55)
[2021-09-25] MEDS: MENTHOL/ZINC OXIDE OINT 71 GM JAR TOP SCH ×2 (10:06→20:55)
[2021-09-25] MEDS: INSULIN LISPRO 100 UNIT/ML SUBCUT SCH ×2 (10:07→16:01)
[2021-09-25] MEDS: INSULIN GLARGINE 100 UNIT/ML SUBCUT SCH (20:55)
[2021-09-25] MEDS: ENOXAPARIN 40 MG/0.4 ML SYRINGE SUBCUT SCH (20:55)
[2021-09-26] MEDS: PANTOPRAZOLE 40 MG TABLET PO SCH (05:45)
[2021-09-26] MEDS: INSULIN LISPRO 100 UNIT/ML SUBCUT SCH ×2 (08:12→18:03)
[2021-09-26] MEDS: risperiDONE 1 MG TABLET PO SCH ×2 (10:27→21:00)
[2021-09-26] MEDS: FERROUS SULFATE 325 MG TABLET PO SCH (10:27)
[2021-09-26] MEDS: METOPROLOL TARTRATE 50 MG TABLET PO SCH ×2 (10:27→21:00)
[2021-09-26] MEDS: MAGNESIUM OXIDE 400 MG TABLET PO SCH ×2 (10:28→21:00)
[2021-09-26] MEDS: MENTHOL/ZINC OXIDE OINT 71 GM JAR TOP SCH ×2 (10:30→21:00)
[2021-09-26] MEDS: ENOXAPARIN 40 MG/0.4 ML SYRINGE SUBCUT SCH (21:00)
[2021-09-26] MEDS: INSULIN GLARGINE 100 UNIT/ML SUBCUT SCH (22:00)
[2021-09-27 05:41] LABS: Osmolality,Calculated 285.1 MOS/KG (273-304); Potassium 4.3 MMOL/L (3.5-5.1)
[2021-09-27 05:56] LABS: Basophils % 0.4 % (0.0-0.8); Eosinophils # 0.2 10*3/uL (0.0-0.87); Eosinophils % 2.3 % (0.00-10.9); Immature Granulocytes Absolute 0.07 #; Lymphocytes # 2.1 10*3/uL (1.4-4.0); Lymphocytes % 29.7 % (21.2-54.2); Mean Corpuscular HGB Conc 28.6 GM/DL (32-36); Mean Corpuscular Volume 75.1 FL (87-102); Mean Platelet Volume 9.9 FL (9.6-12.0); Monocytes # 0.7 10*3/uL (0.11-0.8); Monocytes % 9.7 % (1.7-12.7); Neutrophils % 56.9 % (38.7-73.9); Platelet Count 310 T/CUMM (130-400); Red Blood Count 4.66 MC/CUMM (3.8-5.5); Red Cell Distribution Width 19.5 % (9.3-17.3)
[2021-09-27] MEDS: PANTOPRAZOLE 40 MG TABLET PO SCH (06:05)
[2021-09-27] MEDS: METOPROLOL TARTRATE 50 MG TABLET PO SCH ×2 (09:19→20:05)
[2021-09-27] MEDS: MAGNESIUM OXIDE 400 MG TABLET PO SCH ×2 (09:19→20:05)
[2021-09-27] MEDS: MENTHOL/ZINC OXIDE OINT 71 GM JAR TOP SCH ×2 (09:19→20:05)
[2021-09-27] MEDS: FERROUS SULFATE 325 MG TABLET PO SCH (09:19)
[2021-09-27] MEDS: risperiDONE 1 MG TABLET PO SCH ×2 (09:19→20:05)
[2021-09-27] MEDS: SCOPOLAMINE 1.5 MG PATCH TRANSDERM SCH (09:19)
[2021-09-27] MEDS: INSULIN LISPRO 100 UNIT/ML SUBCUT SCH ×2 (09:20→17:57)
[2021-09-27] MEDS: ENOXAPARIN 40 MG/0.4 ML SYRINGE SUBCUT SCH (20:05)
[2021-09-27] MEDS: INSULIN GLARGINE 100 UNIT/ML SUBCUT SCH (20:05)
[2021-09-28] MEDS: PANTOPRAZOLE 40 MG TABLET PO SCH (05:50)
[2021-09-28] MEDS: MAGNESIUM OXIDE 400 MG TABLET PO SCH ×2 (09:43→20:05)
[2021-09-28] MEDS: METOPROLOL TARTRATE 50 MG TABLET PO SCH ×2 (09:43→20:05)
[2021-09-28] MEDS: risperiDONE 1 MG TABLET PO SCH ×2 (09:43→20:05)
[2021-09-28] MEDS: MENTHOL/ZINC OXIDE OINT 71 GM JAR TOP SCH ×2 (09:43→20:05)
[2021-09-28] MEDS: FERROUS SULFATE 325 MG TABLET PO SCH (09:43)
[2021-09-28] MEDS: INSULIN LISPRO 100 UNIT/ML SUBCUT SCH ×2 (09:44→18:12)
[2021-09-28] MEDS: ENOXAPARIN 40 MG/0.4 ML SYRINGE SUBCUT SCH (20:05)
[2021-09-28] MEDS: INSULIN GLARGINE 100 UNIT/ML SUBCUT SCH (20:05)
[2021-09-29] MEDS: PANTOPRAZOLE 40 MG TABLET PO SCH (05:55)
[2021-09-29] MEDS: INSULIN LISPRO 100 UNIT/ML SUBCUT SCH ×2 (08:24→17:28)
[2021-09-29] MEDS: risperiDONE 1 MG TABLET PO SCH ×2 (08:28→21:32)
[2021-09-29] MEDS: MAGNESIUM OXIDE 400 MG TABLET PO SCH ×2 (08:29→21:32)
[2021-09-29] MEDS: METOPROLOL TARTRATE 50 MG TABLET PO SCH ×2 (08:29→21:32)
[2021-09-29] MEDS: FERROUS SULFATE 325 MG TABLET PO SCH (08:29)
[2021-09-29] MEDS: MENTHOL/ZINC OXIDE OINT 71 GM JAR TOP SCH ×2 (08:29→21:33)
[2021-09-29] MEDS ORDERED: TUBERCULIN SKIN TEST 0.1 ML SYRINGE INTRADERM ONE (17:00)
[2021-09-29] MEDS: ENOXAPARIN 40 MG/0.4 ML SYRINGE SUBCUT SCH (21:32)
[2021-09-29] MEDS: SIMETHICONE CHEW 125 MG TABLET PO PRN (21:32)
[2021-09-29] MEDS: INSULIN GLARGINE 100 UNIT/ML SUBCUT SCH (21:32)
[2021-09-30] MEDS: PANTOPRAZOLE 40 MG TABLET PO SCH (06:08)
[2021-09-30] MEDS: INSULIN LISPRO 100 UNIT/ML SUBCUT SCH (08:33)
[2021-09-30] MEDS: METOPROLOL TARTRATE 50 MG TABLET PO SCH (10:25)
[2021-09-30] MEDS: MENTHOL/ZINC OXIDE OINT 71 GM JAR TOP SCH (10:25)
[2021-09-30] MEDS: FERROUS SULFATE 325 MG TABLET PO SCH ×2 (10:25→11:15)
[2021-09-30] MEDS: MAGNESIUM OXIDE 400 MG TABLET PO SCH (10:25)
[2021-09-30] MEDS: SCOPOLAMINE 1.5 MG PATCH TRANSDERM SCH (10:26)
[2021-09-30] MEDS: risperiDONE 1 MG TABLET PO SCH (10:26)
[2021-09-30 13:00] VITALS: BP 148/89
== END 2021-09-30 16:29 | DRG 5 ==
LOC: N.ED 04:36 → SUATTDRO 11:06 → N.EDINP 11:06 → N.CC 12:17 → N.5E 08-06 14:00
PROVIDERS: ADMIT Internal Medicine; ATTEND Emergency Medicine